=== PATIENT | male | born 1965 ===

== ENCOUNTER 2019-03-31 13:11 | Inpatient (IN) | payer SELFPAY ==
--- NOTE | 2019-03-31 13:20 | Emergency Department Report ---
HPI - General Time Seen by Provider: 03/31/19 13:14 - HPI HPI: Charge nurse triage/room 19 The patient is a 53-year-old male presenting with a chief complaint of dysarthria. Patient states approximately 2 hours ago while washing dishes and developed difficulty speaking and muscle cramps diffusely. Patient denies numbness or weakness. Location: [See above] Duration: [See above] Quality: [See above] Severity: [See above] Modifying factors: [see above] Context: [see above] Mode of transportation: [not driving] ED Past Medical Hx - Past Medical History Previous Medical History?: No - Surgical History Past Surgical History?: No - Social History Smoking Status: Current Every Day Smoker Substance Use Type: None ED Review of Systems ROS: Stated complaint: STROKE Other details as noted in HPI Constitutional: no symptoms reported Eyes: denies: eye pain ENT: denies: throat pain Respiratory: no symptoms reported Cardiovascular: denies: chest pain Endocrine: no symptoms reported Gastrointestinal: denies: abdominal pain Genitourinary: denies: dysuria Musculoskeletal: myalgia Neurological: other (difficulty speaking). denies: headache Physical Exam - Physical Exam Physical Exam: GENERAL: The patient is well-developed well-nourished male sitting on stretcher not appearing to be in acute distress. [] HEENT: Normocephalic. Atraumatic. Extraocular motions are intact. Patient has moist mucous membranes. NECK: Supple. No meningitic signs are noted. Trachea midline CHEST/LUNGS: Clear to auscultation. There is no respiratory distress noted. HEART/CARDIOVASCULAR: Regular. There is no tachycardia. There is no gallop rub or murmur. ABDOMEN: Abdomen is soft, nontender. Patient has normal bowel sounds. There is no abdominal distention. SKIN: There is no rash. There is no edema. There is no diaphoresis. NEURO: The patient is awake, alert, and oriented. The patient is cooperative. The patient has no focal neurologic deficits. Cranial nerves II through XII grossly intact, no drift. [employer] equal bilaterally. Per client reporting associate patient is exhibiting dysarthria MUSCULOSKELETAL:There is no evidence of acute injury. ED Medical Decision Making - Lab Data Result diagrams: 03/31/19 13:29 03/31/19 13:29 Laboratory Tests 03/31/19 03/31/19 03/31/19 13:29 13:29 13:29 WBC 5.2 RBC 4.32 Hgb 13.6 Hct 38.5 MCV 89 MCH 31 MCHC 35 H RDW 12.9 L Plt Count 143 Lymph % (Auto) 9.4 L [place] % (Auto) 12.4 H Eos % (Auto) 1.3 Baso % (Auto) 0.5 Lymph # 0.5 L [place] # 0.6 Eos # 0.1 Baso # 0.0 Seg Neutrophils % 76.4 H Seg Neutrophils # 4.0 PT 13.2 INR 1.03 APTT 29.3 Thrombin Time Sodium 123 L Potassium 2.8 L* Chloride 73.7 L Carbon Dioxide 28 Anion Gap 24 BUN 10 Creatinine 0.8 Estimated GFR > 60 BUN/Creatinine Ratio 13 Glucose 117 H POC Glucose Calcium 9.6 Magnesium Total Creatine Kinase Troponin T < 0.010 TSH Free T4 Plasma/Serum Alcohol 03/31/19 03/31/19 03/31/19 13:29 13:29 13:29 WBC RBC Hgb Hct MCV MCH MCHC RDW Plt Count Lymph % (Auto) [place] % (Auto) Eos % (Auto) Baso % (Auto) Lymph # [place] # Eos # Baso # Seg Neutrophils % Seg Neutrophils # PT INR APTT Thrombin Time 15.5 Sodium Potassium Chloride Carbon Dioxide Anion Gap BUN Creatinine Estimated GFR BUN/Creatinine Ratio Glucose POC Glucose Calcium Magnesium Total Creatine Kinase 574 H Troponin T TSH 2.930 Free T4 1.13 Plasma/Serum Alcohol 03/31/19 03/31/19 03/31/19 13:29 13:29 13:55 WBC RBC Hgb Hct MCV MCH MCHC RDW Plt Count Lymph % (Auto) [place] % (Auto) Eos % (Auto) Baso % (Auto) Lymph # [place] # Eos # Baso # Seg Neutrophils % Seg Neutrophils # PT INR APTT Thrombin Time Sodium Potassium Chloride Carbon Dioxide Anion Gap BUN Creatinine Estimated GFR BUN/Creatinine Ratio Glucose POC Glucose 100 Calcium Magnesium 1.60 L Total Creatine Kinase Troponin T TSH Free T4 Plasma/Serum Alcohol 0.13 H - EKG Data -: EKG Interpreted by Mo EKG shows normal: sinus rhythm Rate: normal - EKG Data When compared to previous EKG there are: previous EKG unavailable Interpretation: nonspecific ST-T wave violet (biphasic T waves in leads V3, V4) - Differential Diagnosis dysarthria, intoxication, electrolyte imbalance, rhabdomyolysis Critical care attestation.: If time is entered above; I have spent that time in minutes in the direct care of this critically ill patient, excluding procedure time. ED Disposition Clinical Impression: Hyponatremia, Hypokalemia, Hypomagnesemia, Alcohol intoxication Disposition: OP ADMIT IP TO THIS HOSP Is pt being admited?: Yes Does the pt Need Aspirin: No Condition: Fair Referrals: GROTON ROBERTOAU SABLE FORKS MD CHICHI [Primary Care Provider] - 3-5 Days Time of Disposition: 14:24 (hospitalist notified (Dr Casarez))
[2019-03-31 13:36] LABS: Basophils % (Auto) 0.5 % (0.0-1.8); Eosinophils # (Auto) 0.1 K/mm3 (0.0-0.4); Eosinophils % (Auto) 1.3 % (0.0-4.3); Hematocrit 38.5 % (35.5-45.6); Hemoglobin 13.6 gm/dl (11.8-15.2); Lymphocytes # (Auto) 0.5 K/mm3 (1.2-5.4); Lymphocytes % (Auto) 9.4 % (13.4-35.0); Mean Corpuscular HGB Conc 35 % (32-34); Mean Corpuscular Volume 89 fl (84-94); Monocytes # (Auto) 0.6 K/mm3 (0.0-0.8); Monocytes % (Auto) 12.4 % (0.0-7.3); Platelet Count 143 K/mm3 (140-440); Red Blood Count 4.32 M/mm3 (3.65-5.03); Red Cell Distribution Width 12.9 % (13.2-15.2)
--- NOTE | 2019-03-31 13:44 | Consultation ---
History of Present Illness Consult date: 03/31/19 Medications and Allergies Allergies Allergy/AdvReac Type Severity Reaction Status Date / Time No Known Allergies Allergy Unverified 03/31/19 13:14 - Level of Consciousness 1a. Level of Consciousness: alert/keenly responsive - LOC Questions 1b. LOC Questions: answers no questions correctly - LOC Command 1c. LOC Commands: performs tasks correctly - Best Gaze 2. Best Gaze: normal - Visual 3. Visual: no visual loss - Facial Palsy 4. Facial Palsy: normal symmetrical movement - Motor Arm 5a. Motor Arm Left: no drift 5b. Motor Arm Right: no drift - Motor Leg 6a. Motor Leg Left: no drift 6b. Motor Leg Right: no drift - Limb Ataxia 7. Limb Ataxia: present 2 limbs - Sensory 8. Sensory: normal - Best Language 9. Best Language: mild/moderate aphasia - Dysarthria 10. Dysarthria: severe dysarthria - Extinction and Inattention 11. Extinction/Inattention: no abnormality - Scoring Total Score: 7 Stroke Severity: Moderate Stroke Results - Laboratory Findings CBC and BMP: 03/31/19 13:29 03/31/19 13:29 Abnormal Lab Findings: Abnormal Labs 03/31/19 13:29 MCHC 35 H RDW 12.9 L Lymph % (Auto) 9.4 L [place] % (Auto) 12.4 H Lymph # 0.5 L Seg Neutrophils % 76.4 H Assessment and Plan Date of Service 03/31/2019 [facility] Comments: Last time known well: _ 10:15 Door time: _1315 [facility] contacted: _1315 [facility] at bedside: _1319 NIHSS assessment time: _1328 consult end time: _1406 Impression: acute ataxia and slurred speech concerning for Acute Ischemic Stroke, His electrolyte abnormalities can explain confusion or muscle spasms but he has speech impairment and unilateral ataxia that is more consistent with a focal neurological deficit. Does meet Large Vessel Occlusion (LVO) screening criteria (Aphasia, Neglect, Gaze deviation/preference, Dense hemiparesis, or Visual field deficits on exam), therefore advanced imaging (CTA head and neck and CTP brain) is indicated. Differential Diagnosis: 1. Cardioembolic stroke 2. Small vessel disease/ lacune 3. Thromboembolic, [id number] mechanism 4. Hypercoagulable state-related infarct 5. Transient ischemic attack 6. Thrombotic mechanism, large artery disease tPA decision and other recommendations: _ Head CT did not show any acute hemorrhage. reviewed report (if available) and images Blood glucose and Blood Pressure within acceptable parameters: Patient is a tPA candidate. Verbal Consent to tPA: I have explained to the patient/family/guardian the nature of the patient's condition, the use of tPA fibrinolytic agent, and the benefits to be reasonably expected compared with alternative approaches. I have discussed the likelihood of major risks or complications of this procedure including (if applicable) but not limited to loss of limb function, brain damage, paralysis, hemorrhage, infection, complications from transfusion of blood components, drug reactions, blood clots and loss of life. I have also indicated that with any procedure there is always the possibility of an unexpected complication. I have explained the risks which include: 1. , Stroke or permanent neurological injury (Paralysis, coma, etc) 2. Worsening of stroke symptoms from swelling or bleeding in the brain 3. Bleeding in other parts of the body 4. Need for blood transfusions to replace blood or clotting factors 5. Allergic reaction to medications 6. Other unexpected complications All questions were answered and the patient/family/guardian express understanding of the treatment plan and consent to the procedure. Our recommendations are outlined below. We will be seeing the patient back in follow up as noted. Recommendations: The recommended dose of t-PA for acute ischemic stroke is 0.9 mg/kg (maximum 90 mg) infused over 60 minutes with 10% of the total dose administered as an initial intravenous bolus over 1 minute. Weight: _ 64.9 kg Verbal order time: _ 13:51 Blood Pressure prior to bolus: _132/76 Needle time: _1404 Total IV tPA dose: _ 58.4mg *Routine post tPA monitoring including neuro checks and blood pressure control during/after treatment *Monitor blood pressure: *Check blood pressure and NIHSS every 15 minutes for 2 hours, then every 30 minutes for 6 hours, and finally every hour for 16 hours For blood pressure management: Systolic greater than 180 OR Diastolic greater than 105: Option 1: Labetalol 10mg IV for 1-2 min May repeat or double labetalol every 10 min to maximum dose of 300mg, or give initial labetalol dose, then start labetalol drip at 2-8 mg/min Option 2: Nicardipine 5mg/hr IV infusion as initial dose and titrate to desired effect by increasing 2.5 mg/hr every 5 min to maximum of 15 mg/hr; If blood pressure is not controlled by labetalol or nicardipine, consider sodium nitroprusside. Based on the results of CTA head and neck and (if needed) CTP brain, will determine presence of Large Vessel Occlusion and eligibility for mechanical thr ombectomy. *Admission to ICU *CT Brain 24 hours post tPA *NPO until swallowing screen performed and passed *No antiplatelet agents or anticoagulants (including heparin for DVT prophylaxis) in first 24 hours *No lin catheter, nasogastric tube, arterial catheter or central venous catheter for 24 hours, unless absolutely necessary *Telemetry *2D Echo *Lipid panel *High dose statin *MRI brain without contrast *PT/OT/Speech evaluations *Inpatient Neurology Consultation *Stroke evaluation as per inpatient neurology recommendations *Discussed with physician/medical staff Please contact [facility] Navigator to reach me if further questions/concerns arise. Reason for Stroke Alert and History of Present Illness: _ Patient is a(n) 46 years old male, with history of smoker, last known well: 10:15 came in for spasm in hands and cramping, family states they saw cramping, in ER found to have significant slurred speech and confusion. He stated he had poured rubbing alcohol over himself. EMS reported seeing lots of beer bottles but patient denied drinking. He states started having cramping at 9 but speech impairment started at about 10:15 - Review of Systems: Constitutional: Negative except as documented in history of present illness. Eye: Negative except as documented in history of present illness. Ear/Nose/Mouth/Throat: Negative except as documented in history of present illness. Respiratory: Negative except as documented in history of present illness. Cardiovascular: Negative except as documented in history of present illness. Gastrointestinal: Negative except as documented in history of present illness. Musculoskeletal: Negative except as documented in history of present illness. Neurologic: Negative except as documented in history of present illness. Examination: NIHSS Details documented in the note ___ 7 Medical Decision Making: - Extensive number of diagnosis or management options are considered above. - Extensive amount of complex data reviewed. - High risk of complication and/or morbidity or mortality are associated with differential diagnostic considerations above. - There may be Uncertain outcome and increased probability of prolonged functional impairment or high probability of severe prolonged functional impairment associated with some of these differential diagnoses. Medical Data Reviewed: 1.Data reviewed include clinical labs, radiology, Medical Tests; 2.Tests results discussed w/performing or interpreting physician; 3.Obtaining/reviewing old medical records; 4.Obtaining case history from another source; 5.Independent review of image, tracing or specimen. When possible Patient/family were informed the Neurology Consult would happen via TeleHealth consult by way of interactive audio and video telecommunications and consented to receiving care in this manner. Case discussed with the Medical staff. Critical Care notation: I was called to see this critical patient emergently. I personally evaluated this critical patient for acute stroke evaluation and determining their eligibility for IV Alteplase and interventional therapies. I have spent approximately _47_ minutes with the patient, including time at bedside, time discussing the case with other physicians, reviewing plan of care, and time independently reviewing the records and scans.
[2019-03-31 13:49] LABS: INR 1.03 (0.87-1.13)
[2019-03-31 13:50] LABS: Partial Thromboplastin Time 29.3 Sec. (24.2-36.6)
[2019-03-31 13:52] LABS: BUN/Creatinine Ratio 13; Blood Urea Nitrogen 10 mg/dL (9-20); Calcium 9.6 mg/dL (8.4-10.2); Hemolysis Index 7
[2019-03-31] MEDS ORDERED: MAGNESIUM SULFATE 2GM/50ML 2 GM/50 ML BAG IV ONE (13:56)
[2019-03-31] MEDS ORDERED: K-DUR PO ONE ×2 (13:56→16:22)
[2019-03-31] MEDS ORDERED: ACTIVASE ONE (13:57)
[2019-03-31] MEDS ORDERED: NACL 0.9% 1000 ML 1,000 ML IV ONE (13:57)
[2019-03-31] MEDS ORDERED: NACL 0.9% IV ONE (14:00)
--- NOTE | 2019-03-31 14:01 | Cat Scan Report ---
CT HEAD WITHOUT CONTRAST: HISTORY: Neurological deficit. TECHNIQUE: Sequential CT images without contrast. FINDINGS: Images obtained show bilateral prominence of the sulci and ventricles. There are no abnormal intra- or extra-axial blood or fluid collections. There are no focal masses or evidence of mass effect. The menendez white matter differentiation appears within normal limits. Regions of periventricular decreased attenuation are consistent with microangiopathic ischemic disease. The posterior fossa structures including the fourth ventricle, cerebellum, and brainstem appear normal. IMPRESSION: Evidence of atrophy and microangiopathic ischemic disease. No acute intracranial process noted.
[2019-03-31 14:03] LABS: Free T4 (Free Thyroxine) 1.13 ng/dL (0.76-1.46)
[2019-03-31] MEDS: ACTIVASE IV ONE ×2 (14:04→15:42)
[2019-03-31] MEDS ORDERED: ACTIVASE IV ONE (14:15)
[2019-03-31] MEDS ORDERED: VITAMIN B-1 100 MG, FOLVITE 1 MG, INFUVITE 10 ML in NACL 0.9% 1000 ML 1,000 ML IV ONE (14:56)
[2019-03-31] MEDS ORDERED: POTASSIUM CHLORIDE FEEDTUBE ONE (17:00)
[2019-03-31] MEDS: KCL 10MEQ/100ML 10 MEQ/100 ML BAG IV SCH ×2 (17:30→22:52)
[2019-03-31] MEDS ORDERED: KCL 10MEQ/100ML 10 MEQ/100 ML BAG IV ONE (17:36)
--- NOTE | 2019-03-31 18:17 | Cat Scan Report ---
PROCEDURE: CT ANGIO HEAD TECHNIQUE: Computerized tomographic angiography of the head was performed after the IV injection of iodinated nonionic contrast including image processing. The image data was postprocessed using 2-dim ensional multiplanar reformatted (MPR) and 3-dimensional (MIP and/or volume rendered) techniques. CT DOSE LENGTH PRODUCT: 647.5 mGycm HISTORY: stroke COMPARISONS: None . FINDINGS: Cerebrum: No evidence of hemorrhage, acute ischemia or mass . Cerebellum: No evidence of hemorrhage, acute ischemia or mass . Subarachnoid spaces and ventricles: Normal . Intracranial vessels: Carotid siphon: Normal . Anterior cerebral: Normal . Middle cerebral: Normal . Posterior cerebral: Normal . Vertebral arteries including basilar: Normal . Aneurysms: None . Dural sinuses: Normal. IMPRESSION: Normal Examination . This document is electronically signed by Lucas Yarbrough MD., March 31 2019 06:15:48 PM ET
--- NOTE | 2019-03-31 18:20 | Cat Scan Report ---
PROCEDURE: CT ANGIO NECK TECHNIQUE: Change of the neck performed with intravenous contrast. Multiplanar and 3-D maximum inten sity ejection reconstructions obtained HISTORY: stroke COMPARISONS: FINDINGS: Origin of the great vessels is unremarkable The common carotid arteries demonstrate normal course and caliber. Internal carotid arteries demonstr ate no evidence for stenosis or occlusion Both vertebral arteries are identified. There is no evidence for dissection occlusion or stenosis. IMPRESSION: Negative CT angiogram neck. This document is electronically signed by Lucas Yarbrough MD., March 31 2019 06:18:50 PM ET
[2019-03-31 19:20] LABS: Amphetamine Screen,Urine PRESUMPTIVE NEGATIVE; Benzodiazepines Screen,Urine PRESUMPTIVE NEGATIVE; Cannabinoid Screen,Urine PRESUMPTIVE NEGATIVE; Cocaine Screen,Urine PRESUMPTIVE NEGATIVE; Methadone Screen,Urine PRESUMPTIVE NEGATIVE; Opiate Screen,Urine PRESUMPTIVE NEGATIVE
[2019-03-31 19:24] LABS: Bilirubin,Urine NEG (Negative); Blood,Urine SM (Negative); Color,Urine Yellow (Yellow); Protein,Urine <15 mg/dL mg/dL (Negative)
--- NOTE | 2019-03-31 20:38 | History and Physical Report ---
History of Present Illness Date of examination: 03/31/19 Date of admission: 03/31/19 14:23 Medications and Allergies Allergies Allergy/AdvReac Type Severity Reaction Status Date / Time No Known Allergies Allergy Unverified 03/31/19 13:14 Home Medications Medication Instructions Recorded Confirmed Last Taken Type No Known Home Medications [No 03/31/19 03/31/19 Unknown History Reported Home Medications] Active Meds: Active Medications Haloperidol Lactate (Haldol) 5 mg IV Q1H PRN PRN Reason: Unrespon. to mult. doses BZD's Potassium Chloride (Kcl 10meq/100ml) 10 meq in 100 mls @ 100 mls/hr IV Q1H HERMILA Stop: 03/31/19 20:59 Last Admin: 03/31/19 17:30 Dose: 100 mls/hr Documented by: Lorazepam (Ativan) 2 mg IV Q1H PRN PRN Reason: CIWA-Ar 8-15 Lorazepam (Ativan) 4 mg IV Q1H PRN PRN Reason: CIWA-Ar 16-25 Lorazepam (Ativan) 4 mg IV Q15MIN PRN PRN Reason: CIWA-Ar >25 Exam - Constitutional Vitals: Temp Pulse Resp BP Pulse Ox 94 H 12 127/77 97 03/31/19 20:01 03/31/19 20:01 03/31/19 20:01 03/31/19 18:56 Results - Labs CBC & Chem 7: 03/31/19 13:29 03/31/19 13:29 Labs: Laboratory Last Values WBC 5.2 K/mm3 (4.5-11.0) 03/31/19 13:29 RBC 4.32 M/mm3 (3.65-5.03) 03/31/19 13:29 Hgb 13.6 gm/dl (11.8-15.2) 03/31/19 13:29 Hct 38.5 % (35.5-45.6) 03/31/19 13:29 MCV 89 fl (84-94) 03/31/19 13:29 MCH 31 pg (28-32) 03/31/19 13:29 MCHC 35 % (32-34) H 03/31/19 13:29 RDW 12.9 % (13.2-15.2) L 03/31/19 13:29 Plt Count 143 K/mm3 (140-440) 03/31/19 13:29 Lymph % (Auto) 9.4 % (13.4-35.0) L 03/31/19 13:29 [place] % (Auto) 12.4 % (0.0-7.3) H 03/31/19 13:29 Eos % (Auto) 1.3 % (0.0-4.3) 03/31/19 13:29 Baso % (Auto) 0.5 % (0.0-1.8) 03/31/19 13:29 Lymph # 0.5 K/mm3 (1.2-5.4) L 03/31/19 13:29 [place] # 0.6 K/mm3 (0.0-0.8) 03/31/19 13:29 Eos # 0.1 K/mm3 (0.0-0.4) 03/31/19 13:29 Baso # 0.0 K/mm3 (0.0-0.1) 03/31/19 13:29 Seg Neutrophils % 76.4 % (40.0-70.0) H 03/31/19 13:29 Seg Neutrophils # 4.0 K/mm3 (1.8-7.7) 03/31/19 13:29 PT 13.2 Sec. (12.2-14.9) 03/31/19 13:29 INR 1.03 (0.87-1.13) 03/31/19 13:29 APTT 29.3 Sec. (24.2-36.6) 03/31/19 13:29 15.5 Sec. (15.1-19.6) 03/31/19 13:29 Sodium 123 mmol/L (137-145) L 03/31/19 13:29 Potassium 2.8 mmol/L (3.6-5.0) L* 03/31/19 13:29 Chloride 73.7 mmol/L (98-107) L 03/31/19 13:29 Carbon Dioxide 28 mmol/L (22-30) 03/31/19 13:29 24 mmol/L 03/31/19 13:29 BUN 10 mg/dL (9-20) 03/31/19 13:29 0.8 mg/dL (0.8-1.5) 03/31/19 13:29 Estimated GFR > 60 ml/min 03/31/19 13:29 13 % 03/31/19 13:29 Glucose 117 mg/dL (75-100) H 03/31/19 13:29 POC Glucose 100 (70-105) 03/31/19 13:55 Calcium 9.6 mg/dL (8.4-10.2) 03/31/19 13:29 Magnesium 1.60 mg/dL (1.7-2.3) L 03/31/19 13:29 574 units/L (55-170) H 03/31/19 13:29 < 0.010 ng/mL (0.00-0.029) 03/31/19 13:29 TSH 2.930 mlU/mL (0.270-4.200) 03/31/19 13:29 Free T4 1.13 ng/dL (0.76-1.46) 03/31/19 13:29 Yellow (Yellow) 03/31/19 17:20 Slightly-cloudy (Clear) 03/31/19 17:20 5.0 (5.0-7.0) 03/31/19 17:20 Ur Specific [place] 1.008 (1.003-1.030) 03/31/19 17:20 <15 mg/dl mg/dL (Negative) 03/31/19 17:20 Neg mg/dL (Negative) 03/31/19 17:20 Tr mg/dL (Negative) 03/31/19 17:20 Sm (Negative) 03/31/19 17:20 Neg (Negative) 03/31/19 17:20 Neg (Negative) 03/31/19 17:20 4.0 mg/dL (<2.0) 03/31/19 17:20 Ur Leukocyte Esterase Neg (Negative) 03/31/19 17:20 7.0 /HPF (0.0-6.0) H 03/31/19 17:20 4.0 /HPF (0.0-6.0) 03/31/19 17:20 Presumptive negative 03/31/19 17:20 Presumptive negative 03/31/19 17:20 Ur Barbiturates Screen Presumptive negative 03/31/19 17:20 Ur Phencyclidine Scrn Presumptive negative 03/31/19 17:20 Ur Amphetamines Screen Presumptive negative 03/31/19 17:20 U Benzodiazepines Scrn Presumptive negative 03/31/19 17:20 Presumptive negative 03/31/19 17:20 U Marijuana (THC) Screen Presumptive negative 03/31/19 17:20 Disclamer 03/31/19 17:20 Plasma/Serum Alcohol 0.13 % (0-0.07) H 03/31/19 13:29
[2019-03-31] MEDS ORDERED: ZOFRAN IV PRN (20:39)
[2019-03-31] MEDS ORDERED: SODIUM CHLORIDE FLUSH SYRINGE 10 ML IV PRN ×2 (20:39→20:41)
[2019-03-31] MEDS: ATIVAN IV PRN ×4 (20:43→23:14)
[2019-03-31] MEDS ORDERED: ATIVAN ONE (20:50)
[2019-03-31] MEDS ORDERED: ASPIRIN PO SCH (21:00)
[2019-03-31] MEDS ORDERED: PEPCID IV SCH (22:00)
[2019-03-31] MEDS: D5NS 1,000 ML IV SCH (22:27)
[2019-03-31] MEDS: SODIUM CHLORIDE FLUSH SYRINGE 10 ML IV SCH (22:31)
[2019-04-01] MEDS: ATIVAN IV PRN ×10 (00:51→23:28)
[2019-04-01] MEDS: KCL 10MEQ/100ML 10 MEQ/100 ML BAG IV SCH ×2 (01:53→02:36)
[2019-04-01 05:28] LABS: Basophils % (Auto) 0.6 % (0.0-1.8); Eosinophils # (Auto) 0.1 K/mm3 (0.0-0.4); Eosinophils % (Auto) 2.3 % (0.0-4.3); Hematocrit 36.6 % (35.5-45.6); Hemoglobin 12.4 gm/dl (11.8-15.2); Lymphocytes # (Auto) 0.5 K/mm3 (1.2-5.4); Lymphocytes % (Auto) 9.4 % (13.4-35.0); Mean Corpuscular HGB Conc 34 % (32-34); Mean Corpuscular Volume 91 fl (84-94); Monocytes # (Auto) 0.5 K/mm3 (0.0-0.8); Monocytes % (Auto) 9.1 % (0.0-7.3); Platelet Count 103 K/mm3 (140-440); Red Cell Distribution Width 12.8 % (13.2-15.2)
[2019-04-01 05:48] LABS: Alanine Aminotransferase 73 units/L (7-56); Albumin 3.8 g/dL (3.9-5); BUN/Creatinine Ratio 20; Blood Urea Nitrogen 10 mg/dL (9-20); Calcium 8.8 mg/dL (8.4-10.2); Hemolysis Index 3
--- NOTE | 2019-04-01 07:34 | Event Note ---
Date: 03/31/19 See dictated H/p in reports S/p TPA CVA? ETOH Dependence
--- NOTE | 2019-04-01 07:34 | Progress Note ---
Assessment and Plan - Patient Problems (1) Acute encephalopathy Current Visit: Yes Status: Acute Plan to address problem: Sec to DT's and severe ETOH dependence (2) Delirium tremens Current Visit: Yes Status: Acute Plan to address problem: Today CIWA scores came below 25 and to transfer to regular Medical floor Cont CIWA protocol (3) Hypokalemia Current Visit: Yes Status: Acute Plan to address problem: Supplemented (4) Hypomagnesemia Current Visit: Yes Status: Acute Plan to address problem: Supplemented multiple times Check Mg level again (5) Malnutrition of moderate degree Current Visit: Yes Status: Acute Plan to address problem: Diettitian consult (6) Transaminitis Current Visit: Yes Status: Acute Plan to address problem: Sec to ETOH (7) EtOH dependence Current Visit: Yes Status: Chronic Qualifiers: Substance use status: in withdrawal Complication of substance-induced condition: with delirium Qualified Code(s): F10.231 - Alcohol dependence with withdrawal delirium Plan to address problem: Patient to be counselled with a ethiopian inerpretor when more alert and oriented (8) Hyponatremia Current Visit: Yes Status: Acute Plan to address problem: Corrected (9) DVT prophylaxis Current Visit: Yes Status: Acute Plan to address problem: On Lovenox and GI prophylaxis Subjective Date of service: 04/01/19 Principal diagnosis: Severe ETOH dependence and DT's and Acute Encephalopathy Interval history: Ad\mitted for possible stroke s/p TPA and severe ETOH dependence.Stroke ruled out. Now in severe DT's with CIWA scores more than 25 persistently.5 Objective - Constitutional Vitals: Vital Signs - 12hr 03/31/19 03/31/19 03/31/19 19:45 20:01 20:51 Temperature Pulse Rate 93 H 94 H Pulse Rate [ Left Arm] Respiratory 13 12 Rate Respiratory Rate [Left Arm] Blood Pressure 127/77 127/77 114/70 Blood Pressure [Left Arm] O2 Sat by Pulse Oximetry O2 Sat by Pulse Oximetry [Left Arm] 03/31/19 03/31/19 03/31/19 21:00 21:18 21:20 Temperature 99.2 F Pulse Rate 85 94 H Pulse Rate [ 87 Left Arm] Respiratory 20 18 Rate Respiratory 17 Rate [Left Arm] Blood Pressure Blood Pressure 118/65 [Left Arm] O2 Sat by Pulse 97 98 Oximetry O2 Sat by Pulse 96 Oximetry [Left Arm] 03/31/19 03/31/19 03/31/19 21:23 21:32 21:35 Temperature Pulse Rate 85 86 Pulse Rate [ 82 Left Arm] Respiratory 18 18 Rate Respiratory 18 Rate [Left Arm] Blood Pressure 118/65 Blood Pressure 118/65 [Left Arm] O2 Sat by Pulse 97 97 Oximetry O2 Sat by Pulse 98 Oximetry [Left Arm] 03/31/19 03/31/19 03/31/19 21:41 21:51 22:00 Temperature Pulse Rate 84 84 93 H Pulse Rate [ Left Arm] Respiratory 14 22 19 Rate Respiratory Rate [Left Arm] Blood Pressure 121/66 125/72 Blood Pressure [Left Arm] O2 Sat by Pulse 97 95 98 Oximetry O2 Sat by Pulse Oximetry [Left Arm] 03/31/19 03/31/19 03/31/19 22:11 22:20 22:21 Temperature Pulse Rate 90 Pulse Rate [ Left Arm] Respiratory 18 18 Rate Respiratory Rate [Left Arm] Blood Pressure 125/72 125/72 Blood Pressure [Left Arm] O2 Sat by Pulse 97 98 96 Oximetry O2 Sat by Pulse Oximetry [Left Arm] 03/31/19 03/31/19 03/31/19 22:25 22:30 22:41 Temperature Pulse Rate 88 91 H Pulse Rate [ 88 Left Arm] Respiratory 10 L 22 Rate Respiratory 18 Rate [Left Arm] Blood Pressure 121/72 121/72 Blood Pressure 121/72 [Left Arm] O2 Sat by Pulse 92 Oximetry O2 Sat by Pulse 95 Oximetry [Left Arm] 03/31/19 03/31/19 03/31/19 22:51 23:01 23:05 Temperature Pulse Rate 94 H 95 H Pulse Rate [ 85 Left Arm] Respiratory 16 16 Rate Respiratory 16 Rate [Left Arm] Blood Pressure 121/72 133/82 Blood Pressure 133/82 [Left Arm] O2 Sat by Pulse 97 Oximetry O2 Sat by Pulse 95 Oximetry [Left Arm] 03/31/19 03/31/19 03/31/19 23:11 23:21 23:30 Temperature Pulse Rate 92 H 100 H 95 H Pulse Rate [ Left Arm] Respiratory 17 17 13 Rate Respiratory Rate [Left Arm] Blood Pressure 133/82 133/82 123/90 Blood Pressure [Left Arm] O2 Sat by Pulse 97 99 Oximetry O2 Sat by Pulse Oximetry [Left Arm] 03/31/19 03/31/19 04/01/19 23:41 23:51 00:00 Temperature 98.0 F Pulse Rate 88 82 81 Pulse Rate [ Left Arm] Respiratory 12 15 14 Rate Respiratory Rate [Left Arm] Blood Pressure 123/90 123/90 125/74 Blood Pressure [Left Arm] O2 Sat by Pulse Oximetry O2 Sat by Pulse Oximetry [Left Arm] 04/01/19 04/01/19 04/01/19 00:05 00:11 00:21 Temperature Pulse Rate 75 86 Pulse Rate [ 81 Left Arm] Respiratory 18 15 18 Rate Respiratory 14 Rate [Left Arm] Blood Pressure 125/74 125/74 Blood Pressure 125/74 [Left Arm] O2 Sat by Pulse 98 Oximetry O2 Sat by Pulse 95 Oximetry [Left Arm] 04/01/19 04/01/19 04/01/19 00:30 00:41 00:51 Temperature Pulse Rate 83 77 84 Pulse Rate [ Left Arm] Respiratory 11 L 14 20 Rate Respiratory Rate [Left Arm] Blood Pressure 129/75 129/75 125/74 Blood Pressure [Left Arm] O2 Sat by Pulse 98 Oximetry O2 Sat by Pulse Oximetry [Left Arm] 04/01/19 04/01/19 04/01/19 01:01 01:05 01:11 Temperature Pulse Rate 87 78 Pulse Rate [ 87 Left Arm] Respiratory 18 18 Rate Respiratory 18 Rate [Left Arm] Blood Pressure 127/69 127/69 Blood Pressure 127/69 [Left Arm] O2 Sat by Pulse 97 95 Oximetry O2 Sat by Pulse 97 Oximetry [Left Arm] 04/01/19 04/01/19 04/01/19 01:21 01:30 01:41 Temperature Pulse Rate 72 78 83 Pulse Rate [ Left Arm] Respiratory 13 12 17 Rate Respiratory Rate [Left Arm] Blood Pressure 127/69 114/77 114/77 Blood Pressure [Left Arm] O2 Sat by Pulse 98 Oximetry O2 Sat by Pulse Oximetry [Left Arm] 04/01/19 04/01/19 04/01/19 01:51 02:00 02:05 Temperature Pulse Rate 75 71 Pulse Rate [ 71 Left Arm] Respiratory 19 11 L 18 Rate Respiratory 14 Rate [Left Arm] Blood Pressure 114/77 114/77 Blood Pressure 128/83 [Left Arm] O2 Sat by Pulse 98 98 Oximetry O2 Sat by Pulse 98 Oximetry [Left Arm] 04/01/19 04/01/19 04/01/19 02:11 02:21 02:31 Temperature Pulse Rate 79 77 96 H Pulse Rate [ Left Arm] Respiratory 15 16 15 Rate Respiratory Rate [Left Arm] Blood Pressure 128/83 128/83 133/75 Blood Pressure [Left Arm] O2 Sat by Pulse 98 98 98 Oximetry O2 Sat by Pulse Oximetry [Left Arm] 04/01/19 04/01/19 04/01/19 02:41 02:51 03:01 Temperature Pulse Rate 71 68 72 Pulse Rate [ Left Arm] Respiratory 16 15 12 Rate Respiratory Rate [Left Arm] Blood Pressure 133/75 133/75 125/86 Blood Pressure [Left Arm] O2 Sat by Pulse 98 99 99 Oximetry O2 Sat by Pulse Oximetry [Left Arm] 04/01/19 04/01/19 04/01/19 03:05 03:10 03:21 Temperature Pulse Rate 75 67 Pulse Rate [ 72 Left Arm] Respiratory 18 14 15 Rate Respiratory 12 Rate [Left Arm] Blood Pressure 125/86 125/86 Blood Pressure 125/86 [Left Arm] O2 Sat by Pulse 98 98 98 Oximetry O2 Sat by Pulse 98 Oximetry [Left Arm] 04/01/19 04/01/19 04/01/19 03:31 03:41 03:50 Temperature Pulse Rate 70 72 71 Pulse Rate [ Left Arm] Respiratory 11 L 15 17 Rate Respiratory Rate [Left Arm] Blood Pressure 136/75 136/75 136/75 Blood Pressure [Left Arm] O2 Sat by Pulse 99 99 99 Oximetry O2 Sat by Pulse Oximetry [Left Arm] 04/01/19 04/01/19 04/01/19 04:00 04:05 04:10 Temperature 98.0 F Pulse Rate 79 91 H Pulse Rate [ Left Arm] Respiratory 15 Rate Respiratory Rate [Left Arm] Blood Pressure 136/75 136/94 Blood Pressure [Left Arm] O2 Sat by Pulse 100 100 Oximetry O2 Sat by Pulse Oximetry [Left Arm] 04/01/19 04/01/19 04/01/19 04:20 04:31 04:41 Temperature Pulse Rate 73 71 69 Pulse Rate [ Left Arm] Respiratory 13 17 18 Rate Respiratory Rate [Left Arm] Blood Pressure 136/94 122/70 122/70 Blood Pressure [Left Arm] O2 Sat by Pulse 99 Oximetry O2 Sat by Pulse Oximetry [Left Arm] 04/01/19 04/01/19 04/01/19 04:51 05:00 05:05 Temperature Pulse Rate 70 75 Pulse Rate [ 72 Left Arm] Respiratory 10 L 16 Rate Respiratory 14 Rate [Left Arm] Blood Pressure 122/70 130/80 Blood Pressure 137/82 [Left Arm] O2 Sat by Pulse 99 99 Oximetry O2 Sat by Pulse 98 Oximetry [Left Arm] 04/01/19 04/01/19 04/01/19 05:11 05:21 05:25 Temperature Pulse Rate 71 80 Pulse Rate [ Left Arm] Respiratory 15 16 18 Rate Respiratory Rate [Left Arm] Blood Pressure 130/80 130/80 Blood Pressure [Left Arm] O2 Sat by Pulse 98 99 98 Oximetry O2 Sat by Pulse Oximetry [Left Arm] 04/01/19 04/01/19 04/01/19 05:31 05:41 05:51 Temperature Pulse Rate 88 78 83 Pulse Rate [ Left Arm] Respiratory 14 12 17 Rate Respiratory Rate [Left Arm] Blood Pressure 130/80 137/82 137/82 Blood Pressure [Left Arm] O2 Sat by Pulse 99 99 99 Oximetry O2 Sat by Pulse Oximetry [Left Arm] 04/01/19 04/01/19 04/01/19 06:00 06:11 06:25 Temperature Pulse Rate 68 77 Pulse Rate [ 72 Left Arm] Respiratory 18 15 18 Rate Respiratory 17 Rate [Left Arm] Blood Pressure 137/82 130/81 Blood Pressure 130/81 [Left Arm] O2 Sat by Pulse 99 99 98 Oximetry O2 Sat by Pulse 99 Oximetry [Left Arm] General appearance: Present: no acute distress, well-nourished - EENT Eyes: PERRL, EOM intact ENT: hearing intact, clear oral mucosa Ears: bilateral: normal - Neck Neck: supple, normal ROM - Respiratory Respiratory effort: normal Respiratory: bilateral: CTA - Breasts Breasts: normal - Cardiovascular Rhythm: regular Heart Sounds: Present: S1 & S2. Absent: gallop, rub Extremities: pulses intact, No edema, normal color, Full ROM - Gastrointestinal General gastrointestinal: Present: soft, non-tender, non-distended, normal bowel sounds - Genitourinary Male genitourinary: normal - Integumentary Integumentary: clear, warm, dry - Musculoskeletal Musculoskeletal: 1, strength equal bilaterally - Neurologic Neurologic: moves all extremities - Psychiatric Psychiatric: memory intact, appropriate mood/affect, intact judgment & insight - Labs CBC & Chem 7: 04/01/19 04:51 04/04/19 14:00 Labs: Abnormal lab results 03/31/19 03/31/19 03/31/19 Range/Units 13:29 13:29 13:29 MCHC 35 H (32-34) % RDW 12.9 L (13.2-15.2) % Plt Count (140-440) K/mm3 Lymph % (Auto) 9.4 L (13.4-35.0) % [place] % (Auto) 12.4 H (0.0-7.3) % Lymph # 0.5 L (1.2-5.4) K/mm3 Seg Neutrophils % 76.4 H (40.0-70.0) % Sodium 123 L (137-145) mmol/L Potassium 2.8 L* (3.6-5.0) mmol/L Chloride 73.7 L (98-107) mmol/L Carbon Dioxide (22-30) mmol/L Creatinine (0.8-1.5) mg/dL Glucose 117 H (75-100) mg/dL Magnesium (1.7-2.3) mg/dL Total Bilirubin (0.1-1.2) mg/dL AST (5-40) units/L ALT (7-56) units/L Total Creatine Kinase 574 H (55-170) units/L Albumin (3.9-5) g/dL Amylase (27-131) units/L Urine WBC (Auto) (0.0-6.0) /HPF Plasma/Serum Alcohol (0-0.07) % 03/31/19 03/31/19 03/31/19 Range/Units 13:29 13:29 17:20 MCHC (32-34) % RDW (13.2-15.2) % Plt Count (140-440) K/mm3 Lymph % (Auto) (13.4-35.0) % [place] % (Auto) (0.0-7.3) % Lymph # (1.2-5.4) K/mm3 Seg Neutrophils % (40.0-70.0) % Sodium (137-145) mmol/L Potassium (3.6-5.0) mmol/L Chloride (98-107) mmol/L Carbon Dioxide (22-30) mmol/L Creatinine (0.8-1.5) mg/dL Glucose (75-100) mg/dL Magnesium 1.60 L (1.7-2.3) mg/dL Total Bilirubin (0.1-1.2) mg/dL AST (5-40) units/L ALT (7-56) units/L Total Creatine Kinase (55-170) units/L Albumin (3.9-5) g/dL Amylase (27-131) units/L Urine WBC (Auto) 7.0 H (0.0-6.0) /HPF Plasma/Serum Alcohol 0.13 H (0-0.07) % 03/31/19 04/01/19 04/01/19 Range/Units 21:26 04:51 04:51 MCHC (32-34) % RDW 12.8 L (13.2-15.2) % Plt Count 103 L (140-440) K/mm3 Lymph % (Auto) 9.4 L (13.4-35.0) % [place] % (Auto) 9.1 H (0.0-7.3) % Lymph # 0.5 L (1.2-5.4) K/mm3 Seg Neutrophils % 78.6 H (40.0-70.0) % Sodium 134 L D (137-145) mmol/L Potassium 3.1 L (3.6-5.0) mmol/L Chloride 91.9 L (98-107) mmol/L Carbon Dioxide 31 H (22-30) mmol/L Creatinine 0.5 L (0.8-1.5) mg/dL Glucose (75-100) mg/dL Magnesium (1.7-2.3) mg/dL Total Bilirubin 1.70 H (0.1-1.2) mg/dL AST 154 H (5-40) units/L ALT 73 H (7-56) units/L Total Creatine Kinase (55-170) units/L Albumin 3.8 L (3.9-5) g/dL Amylase 141 H (27-131) units/L Urine WBC (Auto) (0.0-6.0) /HPF Plasma/Serum Alcohol (0-0.07) %
[2019-04-01] MEDS: D5NS 1,000 ML IV SCH (08:30)
[2019-04-01] MEDS ORDERED: K-DUR PO ONE (09:00)
--- NOTE | 2019-04-01 10:14 | History and Physical Report ---
CHIEF COMPLAINT: Sudden onset of difficulty speaking. HISTORY OF PRESENT ILLNESS: A 53-year-old male under the influence of alcohol. Had a difficulty talking 2 hours ago while washing dishes, also muscle cramps all over. No weakness. The patient when he came to the emergency room, code stroke was called and as per tele-neurology, the patient was given TPA. The patient did not have any weakness on the left or the right side. The patient is able to stand and talk during my exam. PAST MEDICAL HISTORY: None. PAST SURGICAL HISTORY: None. SOCIAL HISTORY: Current everyday smoker. Substance abuse none. FAMILY HISTORY: None. REVIEW OF SYSTEMS: Significant for dysarthria. Otherwise, review of systems negative. PHYSICAL EXAMINATION: GENERAL: Young male, cooperative during examination. VITAL SIGNS: Blood pressure is 137/82, temperature is 98, pulse is 68, respirations are 18, sats are 98%. HEENT: Unremarkable. Pupils are equal and reactive. NECK: Supple, no lymphadenopathy, no thyromegaly. LUNGS: Clear to auscultation and percussion. Good air entry. CARDIOVASCULAR: S1, S2 heard. No gallop, no murmur, no rub. Apical impulse in left fifth intercostal space and midclavicular line. ABDOMEN: Soft and benign. No hepatosplenomegaly. No guarding, no rigidity. Hernial orifices are normal. EXTREMITIES: Good pedal pulses. No pedal edema. CENTRAL NERVOUS SYSTEM: Alert and oriented x 4. Good power in all 4 extremities. SKIN: Normal. LABORATORY DATA: Labs normal except for potassium of 2.8. Magnesium is 1.6. WBC 7.0. Serum alcohol level is 0.13. ASSESSMENT AND PLAN: 1. Dysarthria. The patient was treated as code stroke and was given TPA. The patient has normal power. We will get stroke workup. We will probably be negative workup. Because the patient is status post TPA, the patient to go to ICU. 2. Hypokalemia, supplemented. 3. Hypomagnesemia, supplemented. 4. Urinary tract infection, IV Rocephin given. 5. ETOH dependence. [facility] protocol initiated. 6. Deep venous thrombosis prophylaxis, Lovenox 40 mg subcutaneous daily. Critical care time 30 minutes. JOB# [id number] LORENE/ROBSON LACY
[2019-04-01] MEDS: PEPCID PO SCH ×2 (10:23→21:32)
[2019-04-01] MEDS: SODIUM CHLORIDE FLUSH SYRINGE 10 ML IV SCH (10:23)
--- NOTE | 2019-04-01 12:47 | Consultation ---
History of Present Illness Consult date: 04/01/19 Requesting physician: NIMA FERRELL Reason for Consult: dysarthria, dysphasia Chief complaint: altered mental status, dysarthria, dysphasia, spasms/cramps in hands History of present illness: This 53 year old male, poor historian, even with Language line Pat ID [id number], may be indicating right handed, nods yes to headache, denies dizziness. Admitted for spasms of hands and dysarthria and possible dysphasia and headache as well as ataxia and given TPA. Na initially 123 with ETOH 0.13, K 2.8. Na today 134, K 3.1, Mg was 1.6 and now 2. MRI pending. Past medical history: Unobtainable Social history: Shakes his head no to smoking or alcohol but cannot do full history Family history: Unobtainable Use systems: Unobtainable General appearance: Well-developed well-nourished (per VMI) early 50s male, quite sleepy but arousable. HEENT: No bruits, superficial temporal arteries 2+ without soreness, oropharynx pink and moist. Neck: Supple: No bruits. Heart no murmur heard but sounds are distant. Extremities: 2+ dorsalis pedis pulses without edema or cyanosis or clubbing. Neurologic exam: Mental status: Sleepy but arousable to semi-alert. Not oriented though gives the location as "[place]" rather than hospital when given multiple choice. Speaks only a few words, names pen and [place] in Haitian and glasses in Haitian. Cannot cooperate for naming president or calculations or abstractions or other more complicated commands. Cranial nerves: North appear intact, cannot see discs due to lack of cooperation, PERRLA, extraocular movements movements are full spontaneously, corneals are positive, mild right facial weakness, cannot assess Joshi, gags are absent (later seems to swallow without difficulty when nurses are feeding him), tongue protrudes midline. Cerebellar: Finger to nose dysmetric bilaterally without tremor, [id number] is apraxic. Sensory: Intact to pinprick. More complex testing not possible. 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 Tone is normal. Motor exam lower extremities: Old lift legs off bed but would need supported quadriceps is 5 and pedal pushes his 4+ bilaterally. Tone seems normal. Reflexes: Palmomental is slightly positive bilaterally, jaw jerk is positive, snout is negative. Triceps is 1+ bilaterally, biceps is 1 on the right and 1+ on the left and brachioradialis is trace bilaterally. Sheree's is negative bilaterally. Knee jerks 1+ bilaterally and ankle jerks 1 bilaterally without clonus. Toes are downgoing on the right and upgoing on the left to Babinski testing. Medications and Allergies Allergies Allergy/AdvReac Type Severity Reaction Status Date / Time No Known Allergies Allergy Unverified 03/31/19 13:14 Home Medications Medication Instructions Recorded Confirmed Last Taken Type No Known Home Medications [No 03/31/19 03/31/19 Unknown History Reported Home Medications] Active Meds: Active Medications Acetaminophen (Tylenol) 650 mg PO Q4H PRN PRN Reason: Pain MILD(1-3)/Fever >100.5/BLOOM Aspirin (Aspirin) 325 mg PO QDAY@2200 [facility] Atorvastatin Calcium (Lipitor) 40 mg PO QHS [facility] Last Admin: 03/31/19 22:48 Dose: Not Given Documented by: Famotidine (Pepcid) 20 mg PO BID [facility] Last Admin: 04/01/19 10:23 Dose: 20 mg Documented by: Haloperidol Lactate (Haldol) 5 mg IV Q1H PRN PRN Reason: Unrespon. to mult. doses BZD's Dextrose/Sodium Chloride (D5ns) 1,000 mls @ 100 mls/hr IV DIRECT [facility] Last Admin: 04/01/19 08:30 Dose: 100 mls/hr Documented by: Lorazepam (Ativan) 2 mg IV Q1H PRN PRN Reason: CIWA-Ar 8-15 Last Admin: 04/01/19 05:38 Dose: 2 mg Documented by: Lorazepam (Ativan) 4 mg IV Q1H PRN PRN Reason: CIWA-Ar 16-25 Last Admin: 04/01/19 03:36 Dose: 4 mg Documented by: Lorazepam (Ativan) 4 mg IV Q15MIN PRN PRN Reason: CIWA-Ar >25 Last Admin: 03/31/19 20:43 Dose: 4 mg Documented by: Morphine Sulfate (Morphine) 2 mg IV Q4H PRN PRN Reason: Pain, Moderate (4-6) Ondansetron HCl (Zofran) 4 mg IV Q8H PRN PRN Reason: Nausea And Vomiting Sodium Chloride (Sodium Chloride Flush Syringe 10 Ml) 10 ml IV BID HERMILA Last Admin: 04/01/19 10:23 Dose: 10 ml Documented by: Sodium Chloride (Sodium Chloride Flush Syringe 10 Ml) 10 ml IV PRN PRN PRN Reason: LINE FLUSH Physical Examination - Vital Signs Vital Signs: Vital Signs Pulse Resp Pulse Ox 94 H 15 98 03/31/19 13:36 03/31/19 13:36 03/31/19 13:36 Results - Laboratory Findings CBC and BMP: 04/01/19 04:51 04/01/19 04:51 Abnormal Lab Findings: Abnormal Labs 03/31/19 03/31/19 03/31/19 13:29 13:29 13:29 MCHC 35 H RDW 12.9 L Plt Count Lymph % (Auto) 9.4 L [place] % (Auto) 12.4 H Lymph # 0.5 L Seg Neutrophils % 76.4 H Sodium 123 L Potassium 2.8 L* Chloride 73.7 L Carbon Dioxide Creatinine Glucose 117 H Magnesium Total Bilirubin AST ALT Total Creatine Kinase 574 H Albumin Amylase Urine WBC (Auto) Plasma/Serum Alcohol 03/31/19 03/31/19 03/31/19 13:29 13:29 17:20 MCHC RDW Plt Count Lymph % (Auto) [place] % (Auto) Lymph # Seg Neutrophils % Sodium Potassium Chloride Carbon Dioxide Creatinine Glucose Magnesium 1.60 L Total Bilirubin AST ALT Total Creatine Kinase Albumin Amylase Urine WBC (Auto) 7.0 H Plasma/Serum Alcohol 0.13 H 03/31/19 04/01/19 04/01/19 21:26 04:51 04:51 MCHC RDW 12.8 L Plt Count 103 L Lymph % (Auto) 9.4 L [place] % (Auto) 9.1 H Lymph # 0.5 L Seg Neutrophils % 78.6 H Sodium 134 L D Potassium 3.1 L Chloride 91.9 L Carbon Dioxide 31 H Creatinine 0.5 L Glucose Magnesium Total Bilirubin 1.70 H AST 154 H ALT 73 H Total Creatine Kinase Albumin 3.8 L Amylase 141 H Urine WBC (Auto) Plasma/Serum Alcohol Assessment and Plan Impression: 1. Dysarthria 2. Confusion 3. Hyponatremia Plan: 1. CTAs head and neck ok. 2. CT head shows microvascular disease but not acute, also moderate cerebellar and cerebral atrophy. 3. Brain MRI is pending. 4. Observe for improvement with more normal sodium and other electrolytes. Nonfocal motor exam is reassuring. 45 minutes critical care time spent with this patient. Thank you for an interesting consultation on this unfortunate early 50s male. Will sign off, call for any unusual MRI findings.
[2019-04-01] MEDS: HALDOL IV PRN ×2 (14:55→17:17)
[2019-04-01 20:17] LABS: Chol/HDL Ratio 1.97 %; HDL Cholesterol 101 mg/dL (40-59); LDL Cholesterol,Direct 99 mg/dL (50-130)
--- NOTE | 2019-04-01 20:58 | Progress Note ---
Assessment and Plan - Patient Problems (1) Acute encephalopathy Current Visit: Yes Status: Acute Plan to address problem: Sec to DT's and severe ETOH dependence (2) Delirium tremens Current Visit: Yes Status: Acute Plan to address problem: Today CIWA scores above 25 and hence continue ICU care (3) Hypokalemia Current Visit: Yes Status: Acute Plan to address problem: Supplemented (4) Hypomagnesemia Current Visit: Yes Status: Acute Plan to address problem: Supplemented multiple times Check Mg level again (5) Malnutrition of moderate degree Current Visit: Yes Status: Acute Plan to address problem: Diettitian consult (6) Transaminitis Current Visit: Yes Status: Acute Plan to address problem: Sec to ETOH (7) DVT prophylaxis Current Visit: Yes Status: Acute Plan to address problem: On Lovenox and GI prophylaxis Subjective Date of service: 04/01/19 Principal diagnosis: CVA,S/p TPA DT's Interval history: Ad\mitted for possible stroke s/p TPA and severe ETOH dependence.Stroke ruled out. Now in severe DT's with CIWA scores more than 25 persistently. Objective - Constitutional Vitals: Vital Signs - 12hr 04/01/19 04/01/19 04/01/19 08:41 08:51 09:00 Temperature Pulse Rate 82 83 70 Pulse Rate [ Left Arm] Respiratory 15 15 21 Rate Respiratory Rate [Left Arm] Blood Pressure 137/81 137/81 134/71 Blood Pressure [Left Arm] O2 Sat by Pulse 99 98 99 Oximetry O2 Sat by Pulse Oximetry [Left Arm] 04/01/19 04/01/19 04/01/19 09:11 09:21 09:30 Temperature Pulse Rate 78 76 75 Pulse Rate [ Left Arm] Respiratory 15 19 20 Rate Respiratory Rate [Left Arm] Blood Pressure 136/71 136/71 121/72 Blood Pressure [Left Arm] O2 Sat by Pulse 98 98 98 Oximetry O2 Sat by Pulse Oximetry [Left Arm] 04/01/19 04/01/19 04/01/19 09:41 09:51 10:00 Temperature Pulse Rate 78 84 72 Pulse Rate [ Left Arm] Respiratory 19 16 19 Rate Respiratory Rate [Left Arm] Blood Pressure 134/71 134/71 117/73 Blood Pressure [Left Arm] O2 Sat by Pulse 98 99 100 Oximetry O2 Sat by Pulse Oximetry [Left Arm] 04/01/19 04/01/1904/01/19 10:11 10:21 10:31 Temperature Pulse Rate 79 72 83 Pulse Rate [ Left Arm] Respiratory 22 16 14 Rate Respiratory Rate [Left Arm] Blood Pressure 117/73 117/73 148/103 Blood Pressure [Left Arm] O2 Sat by Pulse 100 99 100 Oximetry O2 Sat by Pulse Oximetry [Left Arm] 04/01/19 04/01/19 04/01/19 11:00 11:30 12:00 Temperature Pulse Rate 64 70 65 Pulse Rate [ Left Arm] Respiratory 19 10 L 15 Rate Respiratory Rate [Left Arm] Blood Pressure 144/99 137/84 142/75 Blood Pressure [Left Arm] O2 Sat by Pulse 99 99 100 Oximetry O2 Sat by Pulse Oximetry [Left Arm] 04/01/19 04/01/19 04/01/19 12:30 13:01 13:09 Temperature Pulse Rate 73 79 Pulse Rate [ 75 Left Arm] Respiratory 17 12 Rate Respiratory 12 Rate [Left Arm] Blood Pressure 135/84 125/78 Blood Pressure 125/78 [Left Arm] O2 Sat by Pulse 100 99 Oximetry O2 Sat by Pulse 99 Oximetry [Left Arm] 04/01/19 04/01/19 04/01/19 13:31 14:00 14:01 Temperature Pulse Rate 88 82 Pulse Rate [ Left Arm] Respiratory 13 17 Rate Respiratory 12 Rate [Left Arm] Blood Pressure 125/78 130/84 Blood Pressure 125/78 [Left Arm] O2 Sat by Pulse 98 97 Oximetry O2 Sat by Pulse 97 Oximetry [Left Arm] 04/01/19 04/01/19 04/01/19 14:31 15:00 15:31 Temperature Pulse Rate 81 76 65 Pulse Rate [ Left Arm] Respiratory 14 13 19 Rate Respiratory Rate [Left Arm] Blood Pressure 130/84 115/65 115/65 Blood Pressure [Left Arm] O2 Sat by Pulse 99 98 97 Oximetry O2 Sat by Pulse Oximetry [Left Arm] 04/01/19 04/01/19 04/01/19 16:00 17:00 18:00 Temperature 97.3 F L Pulse Rate 69 75 83 Pulse Rate [ Left Arm] Respiratory 22 12 21 Rate Respiratory Rate [Left Arm] Blood Pressure 117/72 114/68 127/82 Blood Pressure [Left Arm] O2 Sat by Pulse 97 96 Oximetry O2 Sat by Pulse Oximetry [Left Arm] 04/01/19 04/01/19 19:00 19:24 Temperature Pulse Rate 79 Pulse Rate [ Left Arm] Respiratory 13 Rate Respiratory Rate [Left Arm] Blood Pressure 126/73 Blood Pressure [Left Arm] O2 Sat by Pulse 98 98 Oximetry O2 Sat by Pulse Oximetry [Left Arm] General appearance: Present: no acute distress, severe distress, disheveled - EENT Eyes: PERRL, EOM intact ENT: hearing intact, clear oral mucosa Ears: bilateral: normal - Neck Neck: supple, normal ROM - Respiratory Respiratory effort: normal Respiratory: bilateral: CTA - Breasts Breasts: normal - Cardiovascular Heart rate: 99 Rhythm: regular Heart Sounds: Present: S1 & S2. Absent: gallop, rub Extremities: no ischemia, pulses intact, No edema, normal color, Full ROM - Gastrointestinal General gastrointestinal: Present: soft, non-tender, non-distended, normal bowel sounds - Genitourinary Male genitourinary: normal - Integumentary Integumentary: clear, warm, dry - Musculoskeletal Musculoskeletal: 1, strength equal bilaterally - Neurologic Neurologic: CNII-XII intact, moves all extremities - Psychiatric Psychiatric: cooperative, agitated - Allied health notes Allied health notes reviewed: nursing, case management - Labs CBC & Chem 7: 04/01/19 04:51 04/04/19 14:00 Labs: Abnormal lab results 03/31/19 04/01/19 04/01/19 Range/Units 21:26 04:51 04:51 RDW 12.8 L (13.2-15.2) % Plt Count 103 L (140-440) K/mm3 Lymph % (Auto) 9.4 L (13.4-35.0) % Noble % (Auto) 9.1 H (0.0-7.3) % Lymph # 0.5 L (1.2-5.4) K/mm3 Seg Neutrophils % 78.6 H (40.0-70.0) % Sodium 134 L D (137-145) mmol/L Potassium 3.1 L (3.6-5.0) mmol/L Chloride 91.9 L (98-107) mmol/L Carbon Dioxide 31 H (22-30) mmol/L Creatinine 0.5 L (0.8-1.5) mg/dL Total Bilirubin 1.70 H (0.1-1.2) mg/dL AST 154 H (5-40) units/L ALT 73 H (7-56) units/L Albumin 3.8 L (3.9-5) g/dL HDL Cholesterol 101 H (40-59) mg/dL Amylase 141 H (27-131) units/L
[2019-04-01] MEDS: ASPIRIN PO SCH (21:31)
[2019-04-01] MEDS: TYLENOL PO PRN (21:33)
[2019-04-01] MEDS: MORPHINE IV PRN (21:34)
[2019-04-02] MEDS: MORPHINE IV PRN ×2 (02:36→06:35)
[2019-04-02] MEDS: ATIVAN IV PRN ×8 (02:37→20:16)
[2019-04-02] MEDS: SODIUM CHLORIDE FLUSH SYRINGE 10 ML IV SCH ×2 (09:05→09:32)
[2019-04-02] MEDS: PEPCID PO SCH ×2 (09:31→22:35)
--- NOTE | 2019-04-02 10:16 | Progress Note ---
Assessment and Plan - Patient Problems (1) Acute encephalopathy Current Visit: Yes Status: Acute Plan to address problem: Sec to DT's and severe ETOH dependence (2) Delirium tremens Current Visit: Yes Status: Acute Plan to address problem: Today CIWA scores above 25 and hence continue ICU care (3) Hypokalemia Current Visit: Yes Status: Acute Plan to address problem: Supplemented (4) Hypomagnesemia Current Visit: Yes Status: Acute Plan to address problem: Supplemented multiple times Check Mg level again (5) Hyponatremia Current Visit: Yes Status: Acute Plan to address problem: Corrected (6) Malnutrition of moderate degree Current Visit: Yes Status: Acute Plan to address problem: Diettitian consult (7) Transaminitis Current Visit: Yes Status: Acute Plan to address problem: Sec to ETOH (8) DVT prophylaxis Current Visit: Yes Status: Acute Plan to address problem: On Lovenox and GI prophylaxis Subjective Date of service: 04/02/19 Principal diagnosis: CVA,S/p TPA DT's Interval history: Ad\mitted for possible stroke s/p TPA and severe ETOH dependence.Stroke ruled out. Now in severe DT's with CIWA scores more than 25 persistently. Objective - Constitutional Vitals: Vital Signs - 12hr 04/01/19 04/01/19 04/02/19 23:01 23:45 00:00 Temperature 98.7 F Pulse Rate 76 75 80 Respiratory 15 12 18 Rate Blood Pressure 151/89 151/89 149/89 O2 Sat by Pulse 98 99 98 Oximetry 04/02/19 04/02/19 04/02/19 01:00 02:00 03:01 Temperature Pulse Rate 75 72 100 H Respiratory 10 L 18 13 Rate Blood Pressure 159/85 159/85 188/95 O2 Sat by Pulse 99 98 98 Oximetry 04/02/19 04/02/19 04/02/19 04:00 04:01 05:00 Temperature 98.4 F Pulse Rate 122 H 79 Respiratory 23 24 11 L Rate Blood Pressure 196/107 142/82 O2 Sat by Pulse 99 100 Oximetry 04/02/19 04/02/19 04/02/19 06:01 07:01 08:00 Temperature Pulse Rate 69 90 93 H Respiratory 15 25 H 14 Rate Blood Pressure 148/88 169/90 158/97 O2 Sat by Pulse 98 99 97 Oximetry 04/02/19 09:00 Temperature Pulse Rate 91 H Respiratory 13 Rate Blood Pressure 137/85 O2 Sat by Pulse 98 Oximetry General appearance: Present: severe distress, well-nourished - EENT Eyes: PERRL, EOM intact ENT: hearing intact, clear oral mucosa Ears: bilateral: normal - Neck Neck: supple, normal ROM - Respiratory Respiratory effort: normal Respiratory: bilateral: CTA - Breasts Breasts: normal - Cardiovascular Heart rate: 88 Rhythm: regular Heart Sounds: Present: S1 & S2. Absent: gallop, rub Extremities: no ischemia, pulses intact, No edema, normal color, Full ROM - Gastrointestinal General gastrointestinal: Present: soft, non-tender, non-distended, normal bowel sounds - Genitourinary Male genitourinary: normal - Integumentary Integumentary: clear, warm, dry - Musculoskeletal Musculoskeletal: 1, strength equal bilaterally - Neurologic Neurologic: CNII-XII intact, moves all extremities - Psychiatric Psychiatric: agitated - Labs CBC & Chem 7: 04/01/19 04:51 04/04/19 14:00 Labs: Abnormal lab results 04/01/19 Range/Units 04:51 HDL Cholesterol 101 H (40-59) mg/dL
[2019-04-02 10:56] LABS: BUN/Creatinine Ratio 16; Blood Urea Nitrogen 8 mg/dL (9-20); Calcium 8.8 mg/dL (8.4-10.2); Hemolysis Index 5
[2019-04-02] MEDS: LIBRIUM PO SCH ×3 (11:10→22:34)
[2019-04-02] MEDS: KCL 10MEQ/100ML 10 MEQ/100 ML BAG IV SCH ×8 (11:15→18:34)
--- NOTE | 2019-04-02 11:28 | Consultation ---
History of Present Illness Consult date: 04/02/19 Requesting physician: NIMA FERRELL History of present illness: The patient is a 53-year-old male presented with a chief complaint of dysarthria.Patient denied numbness or weakness at the time of presentation, possible dysphasia and headache as well as ataxia and given TPA. He was admitted to ICU for monitoring and care s/p TPA but has since continued to have active DTS and is on CIWA protocol. His Ativan requirements are such that he needs ongoing care in [facility] ICU. Patient was seen and examined. Vitals, labs, medications, chart and imaging reviewed. History is per medical records, as he is unable to give me a history, he just received Ativan as part of his treatment for DTs. ED Past Medical Hx - Past Medical History Previous Medical History?: No - Surgical History Past Surgical History?: No - Social History Smoking Status: Current Every Day Smoker Substance Use Type: None Medications and Allergies Allergies Allergy/AdvReac Type Severity Reaction Status Date / Time No Known Allergies Allergy Unverified 03/31/19 13:14 Home Medications Medication Instructions Recorded Confirmed Last Taken Type No Known Home Medications [No 03/31/19 03/31/19 Unknown History Reported Home Medications] Active Meds: Active Medications Acetaminophen (Tylenol) 650 mg PO Q4H PRN PRN Reason: Pain MILD(1-3)/Fever >100.5/BLOOM Last Admin: 04/01/19 21:33 Dose: 650 mg Documented by: Aspirin (Aspirin) 325 mg PO QDAY@2200 [facility] Last Admin: 04/01/19 21:31 Dose: 325 mg Documented by: Atorvastatin Calcium (Lipitor) 40 mg PO QHS [facility] Last Admin: 04/01/19 21:32 Dose: 40 mg Documented by: Chlordiazepoxide HCl (Librium) 25 mg PO Q6H [facility] Famotidine (Pepcid) 20 mg PO BID [facility] Last Admin: 04/02/19 09:31 Dose: 20 mg Documented by: Haloperidol Lactate (Haldol) 5 mg IV Q1H PRN PRN Reason: Unrespon. to mult. doses BZD's Last Admin: 04/01/19 17:17 Dose: 5 mg Documented by: Potassium Chloride (Kcl 10meq/100ml) 10 meq in 100 mls @ 100 mls/hr IV Q1H [facility] Stop: 04/02/19 17:59 Lorazepam (Ativan) 2 mg IV Q1H PRN PRN Reason: CIWA-Ar 8-15 Last Admin: 04/01/19 05:38 Dose: 2 mg Documented by: Lorazepam (Ativan) 4 mg IV Q1H PRN PRN Reason: CIWA-Ar 16-25 Last Admin: 04/02/19 09:32 Dose: 4 mg Documented by: Lorazepam (Ativan) 4 mg IV Q15MIN PRN PRN Reason: CIWA-Ar >25 Last Admin: 04/02/19 06:47 Dose: 4 mg Documented by: Morphine Sulfate (Morphine) 2 mg IV Q4H PRN PRN Reason: Pain, Moderate (4-6) Last Admin: 04/02/19 06:35 Dose: 2 mg Documented by: Ondansetron HCl (Zofran) 4 mg IV Q8H PRN PRN Reason: Nausea And Vomiting Sodium Chloride (Sodium Chloride Flush Syringe 10 Ml) 10 ml IV BID [facility] Last Admin: 04/02/19 09:32 Dose: 10 ml Documented by: Sodium Chloride (Sodium Chloride Flush Syringe 10 Ml) 10 ml IV PRN PRN PRN Reason: LINE FLUSH Review of Systems ROS unobtainable: due to mental status Physical Examination Vital signs: Vital Signs Pulse Resp Pulse Ox 94 H 15 98 03/31/19 13:36 03/31/19 13:36 03/31/19 13:36 General appearance: appears uncomfortable Eyes: non-icteric ENT: oropharynx dry Neck: supple, no lymphadenopathy, no JVD Effort: mildly labored Ascultation: Bilateral: clear Cardiovascular: other (tacycardia, S1,S2, no murmurs) Gastrointestinal: normoactive bowel sounds, soft, non-tender, non-distended Integumentary: normal Extremities: no cyanosis, no edema, pulses normal, no ischemia or petechiae non-focal exam, unable to assess other (agitation on and off with somnolence) Results - Laboratory Findings CBC and BMP: 04/01/19 04:51 04/02/19 09:59 PT/INR, D-dimer PT 13.2 Sec. (12.2-14.9) 03/31/19 13:29 INR 1.03 (0.87-1.13) 03/31/19 13:29 Abnormal lab findings: Abnormal Labs 03/31/19 03/31/19 03/31/19 13:29 13:29 13:29 MCHC 35 H RDW 12.9 L Plt Count Lymph % (Auto) 9.4 L Edwards % (Auto) 12.4 H Lymph # 0.5 L Seg Neutrophils % 76.4 H Sodium 123 L Potassium 2.8 L* Chloride 73.7 L Carbon Dioxide BUN Creatinine Glucose 117 H Magnesium Total Bilirubin AST ALT Total Creatine Kinase 574 H Albumin HDL Cholesterol Amylase Urine WBC (Auto) Plasma/Serum Alcohol 03/31/19 03/31/19 03/31/19 13:29 13:29 17:20 MCHC RDW Plt Count Lymph % (Auto) Edwards % (Auto) Lymph # Seg Neutrophils % Sodium Potassium Chloride Carbon Dioxide BUN Creatinine Glucose Magnesium 1.60 L Total Bilirubin AST ALT Total Creatine Kinase Albumin HDL Cholesterol Amylase Urine WBC (Auto) 7.0 H Plasma/Serum Alcohol 0.13 H 03/31/19 04/01/19 04/01/19 21:26 04:51 04:51 MCHC RDW 12.8 L Plt Count 103 L Lymph % (Auto) 9.4 L Edwards % (Auto) 9.1 H Lymph # 0.5 L Seg Neutrophils % 78.6 H Sodium 134 L D Potassium 3.1 L Chloride 91.9 L Carbon Dioxide 31 H BUN Creatinine 0.5 L Glucose Magnesium Total Bilirubin 1.70 H AST 154 H ALT 73 H Total Creatine Kinase Albumin 3.8 L HDL Cholesterol 101 H Amylase 141 H Urine WBC (Auto) Plasma/Serum Alcohol 04/02/19 04/02/19 09:59 09:59 MCHC RDW Plt Count Lymph % (Auto) Edwards % (Auto) Lymph # Seg Neutrophils % Sodium Potassium 2.9 L* Chloride Carbon Dioxide BUN 8 L Creatinine 0.5 L Glucose Magnesium 1.20 L Total Bilirubin AST ALT Total Creatine Kinase Albumin HDL Cholesterol Amylase Urine WBC (Auto) Plasma/Serum Alcohol - Diagnostic Findings Chest x-ray: image reviewed Assessment and Plan Alcohol intoxication with DTs Hyponatremia Hypokalemia Hypomagnesemia Dysarthria Toxic-metabolic encephalaopthy -Start scheduled librium, CIWA protocol -Replace electrolytes as indicated -Place small bowel feeding tube and initiate enteric feeding -VTE prophylaxis -Blood pressure control and monitoring -Aspiration precautions -Alcohol counselling once he is able to actively participate in the discussion -Accuchecks with glycemic control, avoid hypoglycemia -Follow up MRI brain results -Monitor for bleeding.
[2019-04-02] MEDS ORDERED: MAGNESIUM SULFATE 2GM/50ML 2 GM/50 ML BAG IV ONE (15:30)
--- NOTE | 2019-04-02 22:02 | Vascular Lab Report ---
TECHNIQUE: Ultrasound of the bilateral carotid arteries. Reported ICA Stenosis % per the NASCET crite karis. Exam is technically difficult due to the patient's cooperation and positioning. PRIORS : None FINDINGS: PLAQUE DISTRIBUTION: Minimal smooth heterogeneous plaques noted bilaterally VELOCITIES: RIGHT ICA peak systolic velocity (cm/sec): 67 ICA end diastolic velocity (cm/sec): 23 CCA peak systolic velocity (cm/sec): 75 ECA peak systolic velocity (cm/sec): 83 ICA/CCA systolic velocity ratio (cm/sec): 0.89 Right vertebral: Antegrade ICA STENOSIS ESTIMATION: < 50 % LEFT ICA peak systolic velocity (cm/sec): 68 ICA end diastolic velocity (cm/sec): 28 CCA peak systolic velocity (cm/sec): 71 ECA peak systolic velocity (cm/sec): 72 ICA/CCA systolic velocity ratio (cm/sec): 0.96 Left vertebral: Antegrade ICA STENOSIS ESTIMATION: < 50 % IMPRESSION: No clinically significant areas of stenosis noted bilaterally. ICA Stenosis % per the NASCET criteria is < 50 % on the right and < 50 % on the left. This document is electronically signed by Lalita Buck MD., April 02 2019 09:59:57 PM ET
[2019-04-02] MEDS: ASPIRIN PO SCH (22:34)
[2019-04-03] MEDS: ATIVAN IV PRN ×4 (01:41→16:44)
--- NOTE | 2019-04-03 07:06 | Progress Note ---
Assessment and Plan - Patient Problems (1) Acute encephalopathy Current Visit: Yes Status: Acute Plan to address problem: Sec to DT's and severe ETOH dependence (2) Delirium tremens Current Visit: Yes Status: Acute Plan to address problem: Today CIWA scores above 25 and hence continue ICU care (3) Hypokalemia Current Visit: Yes Status: Acute Plan to address problem: Supplemented (4) Hypomagnesemia Current Visit: Yes Status: Acute Plan to address problem: Supplemented multiple times Check Mg level again (5) Hyponatremia Current Visit: Yes Status: Acute Plan to address problem: Corrected (6) Malnutrition of moderate degree Current Visit: Yes Status: Acute Plan to address problem: Diettitian consult (7) Transaminitis Current Visit: Yes Status: Acute Plan to address problem: Sec to ETOH (8) EtOH dependence Current Visit: Yes Status: Chronic Qualifiers: Substance use status: in withdrawal Complication of substance-induced condition: with delirium Qualified Code(s): F10.231 - Alcohol dependence with withdrawal delirium Plan to address problem: Patient to be counselled with a syriac inerpretor when more alert and oriented (9) DVT prophylaxis Current Visit: Yes Status: Acute Plan to address problem: On Lovenox and GI prophylaxis Subjective Date of service: 04/03/19 Principal diagnosis: CVA,S/p TPA DT's Interval history: Ad\mitted for possible stroke s/p TPA and severe ETOH dependence.Stroke ruled out. Now in severe DT's with CIWA scores more than 25 persistently.5 Objective - Constitutional Vitals: Vital Signs - 12hr 04/02/19 04/02/19 04/02/19 20:00 20:40 21:00 Temperature 99.1 F Pulse Rate 82 69 65 Pulse Rate [ 68 From Monitor] Respiratory 16 15 17 Rate Blood Pressure 150/86 151/95 151/95 O2 Sat by Pulse 99 100 98 Oximetry 04/02/19 04/02/19 04/02/19 21:01 22:00 22:01 Temperature Pulse Rate 68 68 87 Pulse Rate [ From Monitor] Respiratory 17 17 Rate Blood Pressure 149/82 153/81 O2 Sat by Pulse 98 100 Oximetry 04/02/19 04/03/19 04/03/19 23:00 00:00 01:01 Temperature 98.8 F Pulse Rate 91 H 99 H 92 H Pulse Rate [ 74 From Monitor] Respiratory 18 11 L 27 H Rate Blood Pressure 158/104 183/117 156/89 O2 Sat by Pulse 98 98 99 Oximetry 04/03/19 04/03/19 04/03/19 02:00 03:00 04:00 Temperature 98.1 F Pulse Rate 88 80 100 H Pulse Rate [ 109 H From Monitor] Respiratory 17 20 19 Rate Blood Pressure 162/93 162/111 166/108 O2 Sat by Pulse 98 99 96 Oximetry 04/03/19 05:00 Temperature Pulse Rate 79 Pulse Rate [ From Monitor] Respiratory 16 Rate Blood Pressure 141/91 O2 Sat by Pulse 99 Oximetry General appearance: Present: no acute distress, well-nourished - EENT Eyes: PERRL, EOM intact ENT: hearing intact, clear oral mucosa Ears: bilateral: normal - Neck Neck: supple, normal ROM - Respiratory Respiratory effort: normal Respiratory: bilateral: CTA - Breasts Breasts: normal - Cardiovascular Heart rate: 78 Rhythm: regular Heart Sounds: Present: S1 & S2. Absent: gallop, rub Extremities: no ischemia, pulses intact, No edema, normal color, Full ROM - Gastrointestinal General gastrointestinal: Present: soft, non-tender, non-distended, normal bowel sounds - Genitourinary Male genitourinary: normal - Integumentary Integumentary: clear, warm, dry - Musculoskeletal Musculoskeletal: 1, strength equal bilaterally - Neurologic Neurologic: moves all extremities - Psychiatric Psychiatric: agitated, other (Severly confused) - Allied health notes Allied health notes reviewed: nursing, case management - Labs CBC & Chem 7: 04/01/19 04:51 04/04/19 14:00 Labs: Abnormal lab results 04/02/19 04/02/19 04/03/19 Range/Units 09:59 09:59 05:08 Potassium 2.9 L* (3.6-5.0) mmol/L BUN 8 L (9-20) mg/dL Creatinine 0.5 L (0.8-1.5) mg/dL Magnesium 1.20 L 1.30 L (1.7-2.3) mg/dL
[2019-04-03 09:50] LABS: BUN/Creatinine Ratio 22; Blood Urea Nitrogen 11 mg/dL (9-20); Calcium 9.2 mg/dL (8.4-10.2); Hemolysis Index 47
[2019-04-03] MEDS: MAGNESIUM SULFATE 2GM/50ML 2 GM/50 ML BAG IV SCH ×3 (10:10→16:10)
--- NOTE | 2019-04-03 11:03 | Progress Note ---
Assessment and Plan Alcohol intoxication with DTs Hyponatremia Hypokalemia Hypomagnesemia Dysarthria Toxic-metabolic encephalopathy - continue scheduled librium, CIWA protocol - add seroquel re: high CIWA scores - NGT placed and tube feeds started - Replace electrolytes as indicated - Place small bowel feeding tube and initiate enteric feeding - VTE prophylaxis - Blood pressure control and monitoring - Aspiration precautions - Alcohol counselling once he is able to actively participate in the discussion - Accuchecks with glycemic control, avoid hypoglycemia - Follow up MRI brain results - Monitor for bleeding. ... re-evaluate in am & prn Subjective Date of service: 04/03/19 Principal diagnosis: Alcohol withdrawal with DTs; Dysarthria; Toxic-metabolic encephalopathy Interval history: Patient is seen today for: Alcohol intoxication with DTs; Hyponatremia; Hypokalemia; Hypomagnesemia; Dysarthria; Toxic-metabolic encephalopathy Seen and examined at bedside; 24hour events reviewed; nursing and respiratory care staff consulted; no adverse overnight events reported to me; sedated; CIWA scores still > 30; No emesis or overt aspiration; in restraints; no overt hemodynamic decompensation Objective Vital Signs - 12hr 04/03/19 04/03/19 04/03/19 00:00 01:01 02:00 Temperature 98.8 F Pulse Rate 99 H 92 H 88 Pulse Rate [ 74 From Monitor] Respiratory 11 L 27 H 17 Rate Blood Pressure 183/117 156/89 162/93 O2 Sat by Pulse 98 99 98 Oximetry 04/03/19 04/03/19 04/03/19 03:00 04:00 05:00 Temperature 98.1 F Pulse Rate 80 100 H 79 Pulse Rate [ 109 H From Monitor] Respiratory 20 19 16 Rate Blood Pressure 162/111 166/108 141/91 O2 Sat by Pulse 99 96 99 Oximetry 04/03/19 04/03/19 04/03/19 06:01 07:00 08:00 Temperature 98.4 F Pulse Rate 91 H 88 Pulse Rate [ From Monitor] Respiratory 25 H 27 H Rate Blood Pressure 160/101 159/97 O2 Sat by Pulse 98 96 Oximetry Constitutional: appears uncomfortable, other (middle aged, thin HM, normocephalic and atraumatic with mildly increased resp effort at rest) Eyes: non-icteric ENT: oropharynx dry Neck: supple, no lymphadenopathy, no JVD, other (no thyromegaly) Effort: mildly labored Ascultation: Bilateral: clear Percussion: Bilateral: not dull Cardiovascular: regular rate and rhythm, other (tacycardia, S1,S2, no murmurs) Gastrointestinal: normoactive bowel sounds, soft, non-tender, non-distended, other (No palpable HSM) Integumentary: normal Extremities: no cyanosis, no edema, pulses normal, no ischemia or petechiae Neurologic: non-focal exam (grossly), pupils equal and round, unable to assess Psychiatric: other (agitation on and off with somnolence) CBC and BMP: 04/01/19 04:51 04/04/19 14:00 ABG, PT/INR, D-dimer: PT/INR, D-dimer PT 13.2 Sec. (12.2-14.9) 03/31/19 13:29 INR 1.03 (0.87-1.13) 03/31/19 13:29 Abnormal lab findings: Abnormal Labs 03/31/19 03/31/19 03/31/19 13:29 13:29 13:29 MCHC 35 H RDW 12.9 L Plt Count Lymph % (Auto) 9.4 L [place] % (Auto) 12.4 H Lymph # 0.5 L Seg Neutrophils % 76.4 H Sodium 123 L Potassium 2.8 L* Chloride 73.7 L Carbon Dioxide BUN Creatinine Glucose 117 H Magnesium Total Bilirubin AST ALT Total Creatine Kinase 574 H Albumin HDL Cholesterol Amylase Urine WBC (Auto) Plasma/Serum Alcohol 03/31/19 03/31/19 03/31/19 13:29 13:29 17:20 MCHC RDW Plt Count Lymph % (Auto) [place] % (Auto) Lymph # Seg Neutrophils % Sodium Potassium Chloride Carbon Dioxide BUN Creatinine Glucose Magnesium 1.60 L Total Bilirubin AST ALT Total Creatine Kinase Albumin HDL Cholesterol Amylase Urine WBC (Auto) 7.0 H Plasma/Serum Alcohol 0.13 H 03/31/19 04/01/19 04/01/19 21:26 04:51 04:51 MCHC RDW 12.8 L Plt Count 103 L Lymph % (Auto) 9.4 L [place] % (Auto) 9.1 H Lymph # 0.5 L Seg Neutrophils % 78.6 H Sodium 134 L D Potassium 3.1 L Chloride 91.9 L Carbon Dioxide 31 H BUN Creatinine 0.5 L Glucose Magnesium Total Bilirubin 1.70 H AST 154 H ALT 73 H Total Creatine Kinase Albumin 3.8 L HDL Cholesterol 101 H Amylase 141 H Urine WBC (Auto) Plasma/Serum Alcohol 04/02/19 04/02/19 04/03/19 09:59 09:59 05:08 MCHC RDW Plt Count Lymph % (Auto) [place] % (Auto) Lymph # Seg Neutrophils % Sodium Potassium 2.9 L* Chloride Carbon Dioxide BUN 8 L Creatinine 0.5 L Glucose Magnesium 1.20 L 1.30 L Total Bilirubin AST ALT Total Creatine Kinase Albumin HDL Cholesterol Amylase Urine WBC (Auto) Plasma/Serum Alcohol 04/03/19 08:56 MCHC RDW Plt Count Lymph % (Auto) [place] % (Auto) Lymph # Seg Neutrophils % Sodium Potassium Chloride Carbon Dioxide BUN Creatinine 0.5 L Glucose Magnesium Total Bilirubin AST ALT Total Creatine Kinase Albumin HDL Cholesterol Amylase Urine WBC (Auto) Plasma/Serum Alcohol Chest x-ray: pending
[2019-04-03] MEDS: SODIUM CHLORIDE FLUSH SYRINGE 10 ML IV SCH (11:11)
[2019-04-03] MEDS ORDERED: MAGNESIUM SULFATE 4GM/100ML 4 GM/100 ML BAG IV ONE (12:00)
--- NOTE | 2019-04-03 13:58 | XRay Report ---
AP ABDOMEN: HISTORY: Nasogastric tube placement. The nasogastric tube terminates in the fundus of the stomach. The abdominal gas pattern is unremarkable. No masses or organomegaly is identified and there is no gross evidence of free air or fluid. No significant soft tissue calcifications are noted. IMPRESSION: Unremarkable abdomen.
[2019-04-03] MEDS ORDERED: SIMPLE SYRUP FEEDTUBE PRN ×2 (14:35)
[2019-04-03] MEDS ORDERED: PANCREAZE DR 10,500 UNIT FEEDTUBE PRN (14:35)
[2019-04-03] MEDS ORDERED: SODIUM BICARBONATE FEEDTUBE PRN (14:35)
[2019-04-03] MEDS: PEPCID PO SCH ×2 (16:11→23:00)
[2019-04-03] MEDS: LIBRIUM PO SCH ×4 (16:12→23:01)
[2019-04-03] MEDS: ASPIRIN PO SCH (23:00)
[2019-04-03] MEDS: LOVENOX SUB-Q SCH (23:10)
[2019-04-04] MEDS: ATIVAN IV PRN (05:26)
[2019-04-04] MEDS: LIBRIUM PO SCH ×4 (05:27→22:25)
[2019-04-04] MEDS: HALDOL IV PRN (05:35)
[2019-04-04] MEDS: SODIUM CHLORIDE FLUSH SYRINGE 10 ML IV SCH ×3 (08:54→22:23)
[2019-04-04] MEDS: PEPCID PO SCH ×2 (09:50→22:22)
[2019-04-04 14:53] LABS: BUN/Creatinine Ratio 34; Blood Urea Nitrogen 17 mg/dL (9-20); Calcium 9.2 mg/dL (8.4-10.2); Hemolysis Index 12
--- NOTE | 2019-04-04 15:01 | Progress Note ---
Assessment and Plan - Patient Problems (1) Acute encephalopathy Current Visit: Yes Status: Acute Plan to address problem: Sec to DT's and severe ETOH dependence (2) Delirium tremens Current Visit: Yes Status: Acute Plan to address problem: Today CIWA scores came below 25 and to transfer to regular Medical floor Cont CIWA protocol (3) EtOH dependence Current Visit: Yes Status: Chronic Qualifiers: Substance use status: in withdrawal Complication of substance-induced condition: with delirium Qualified Code(s): F10.231 - Alcohol dependence with withdrawal delirium Plan to address problem: Patient to be counselled with a [place] inerpretor when more alert and oriented (4) Hypokalemia Current Visit: Yes Status: Acute Plan to address problem: Supplemented (5) Hypomagnesemia Current Visit: Yes Status: Acute Plan to address problem: Supplemented multiple times Check Mg level again (6) Hyponatremia Current Visit: Yes Status: Acute Plan to address problem: Corrected (7) Transaminitis Current Visit: Yes Status: Acute Plan to address problem: Sec to ETOH (8) Malnutrition of moderate degree Current Visit: Yes Status: Acute Plan to address problem: Diettitian consult (9) DVT prophylaxis Current Visit: Yes Status: Acute Plan to address problem: On Lovenox and GI prophylaxis Subjective Date of service: 04/04/19 Principal diagnosis: Alcohol withdrawal with DTs; Dysarthria; Toxic-metabolic encephalopathy Interval history: Ad\mitted for possible stroke s/p TPA and severe ETOH dependence.Stroke ruled o ut. Now in severe DT's with CIWA scores more than 25 persistently.Today is the first time CIWA scores have come down below 25 Objective - Constitutional Vitals: Vital Signs - 12hr 04/04/19 04/04/19 04/04/19 04:00 05:01 06:01 Pulse Rate 74 136 H Pulse Rate [ 105 H From Monitor] Respiratory 13 14 Rate Blood Pressure 123/87 126/85 132/96 O2 Sat by Pulse 100 94 96 Oximetry 04/04/19 04/04/19 04/04/19 07:00 08:00 09:00 Pulse Rate 69 72 74 Pulse Rate [ 95 H From Monitor] Respiratory 16 16 13 Rate Blood Pressure 134/77 118/84 133/90 O2 Sat by Pulse 99 99 100 Oximetry 04/04/19 04/04/19 04/04/19 10:00 11:00 12:00 Pulse Rate 80 89 79 Pulse Rate [ 84 From Monitor] Respiratory 15 14 13 Rate Blood Pressure 125/88 110/83 124/80 O2 Sat by Pulse 100 97 99 Oximetry 04/04/19 13:00 Pulse Rate 81 Pulse Rate [ From Monitor] Respiratory 14 Rate Blood Pressure 117/82 O2 Sat by Pulse 98 Oximetry General appearance: Present: no acute distress, well-nourished - EENT Eyes: PERRL, EOM intact ENT: hearing intact, clear oral mucosa Ears: bilateral: normal - Neck Neck: supple, normal ROM - Respiratory Respiratory effort: normal Respiratory: bilateral: CTA - Breasts Breasts: normal - Cardiovascular Heart rate: 88 Rhythm: regular Heart Sounds: Present: S1 & S2. Absent: gallop, rub Extremities: no ischemia, pulses intact, No edema, normal color, Full ROM - Gastrointestinal General gastrointestinal: Present: soft, non-tender, non-distended, normal bowel sounds - Genitourinary Male genitourinary: normal - Integumentary Integumentary: clear, warm, dry - Musculoskeletal Musculoskeletal: 1, strength equal bilaterally - Neurologic Neurologic: CNII-XII intact, moves all extremities - Psychiatric Psychiatric: agitated - Allied health notes Allied health notes reviewed: nursing, case management - Labs CBC & Chem 7: 04/01/19 04:51 04/04/19 14:00 Labs: Abnormal lab results 04/04/19 04/04/19 Range/Units 14:00 14:00 Potassium 3.0 L D (3.6-5.0) mmol/L Chloride 97.9 L (98-107) mmol/L Creatinine 0.5 L (0.8-1.5) mg/dL Glucose 112 H (75-100) mg/dL Magnesium 1.60 L (1.7-2.3) mg/dL
[2019-04-04] MEDS ORDERED: MAGNESIUM SULFATE 2GM/50ML 2 GM/50 ML BAG IV ONE (15:02)
--- NOTE | 2019-04-04 15:52 | Progress Note ---
Assessment and Plan Alcohol intoxication with DTs Hyponatremia Hypokalemia Hypomagnesemia Dysarthria Toxic-metabolic encephalopathy - continue scheduled librium, CIWA protocol - continue seroquel with slow taper - continue tube feeds as tolerated - Replace electrolytes as indicated - VTE prophylaxis - Blood pressure control and monitoring - continue aspiration precautions - Alcohol counseling once he is able to actively participate in the discussion - continue accuchecks with glycemic control per SSI (avoid hypoglycemia) - Follow up MRI brain results - Monitor for bleeding. ... re-evaluate in am & prn ... transfer to medical floor ok Subjective Date of service: 04/04/19 Principal diagnosis: Alcohol withdrawal with DTs; Dysarthria; Toxic-metabolic encephalopathy Interval history: Patient is seen today for: Alcohol intoxication with DTs; Hyponatremia; Hypokalemia; Hypomagnesemia; Dysarthria; Toxic-metabolic encephalopathy Seen and examined at bedside; 24hour events reviewed; nursing and respiratory care staff consulted; no adverse overnight events reported to me; sedated; less agitated; CIWA scores improved; no emesis or overt aspiration Objective Vital Signs - 12hr 04/04/19 04/04/19 04/04/19 04:00 05:01 06:01 Pulse Rate 74 136 H Pulse Rate [ 105 H From Monitor] Respiratory 13 14 Rate Blood Pressure 123/87 126/85 132/96 O2 Sat by Pulse 100 94 96 Oximetry 04/04/19 04/04/19 04/04/19 07:00 08:00 09:00 Pulse Rate 69 72 74 Pulse Rate [ 95 H From Monitor] Respiratory 16 16 13 Rate Blood Pressure 134/77 118/84 133/90 O2 Sat by Pulse 99 99 100 Oximetry 04/04/19 04/04/19 04/04/19 10:00 11:00 12:00 Pulse Rate 80 89 79 Pulse Rate [ 84 From Monitor] Respiratory 15 14 13 Rate Blood Pressure 125/88 110/83 124/80 O2 Sat by Pulse 100 97 99 Oximetry 04/04/19 13:00 Pulse Rate 81 Pulse Rate [ From Monitor] Respiratory 14 Rate Blood Pressure 117/82 O2 Sat by Pulse 98 Oximetry Constitutional: appears uncomfortable, other (middle aged, thin HM, normocephalic and atraumatic with mildly increased resp effort at rest) Eyes: non-icteric ENT: oropharynx dry Neck: supple, no lymphadenopathy, no JVD, other (no thyromegaly) Effort: mildly labored Ascultation: Bilateral: clear Percussion: Bilateral: not dull Cardiovascular: regular rate and rhythm, other (tacycardia, S1,S2, no murmurs) Gastrointestinal: normoactive bowel sounds, soft, non-tender, non-distended, other (No palpable HSM) Integumentary: normal Extremities: no cyanosis, no edema, pulses normal, no ischemia or petechiae Neurologic: non-focal exam (grossly), pupils equal and round, unable to assess Psychiatric: other (agitation on and off with somnolence) CBC and BMP: 04/01/19 04:51 04/05/19 05:21 ABG, PT/INR, D-dimer: PT/INR, D-dimer PT 13.2 Sec. (12.2-14.9) 03/31/19 13:29 INR 1.03 (0.87-1.13) 03/31/19 13:29 Abnormal lab findings: Abnormal Labs 03/31/19 03/31/19 03/31/19 13:29 13:29 13:29 MCHC 35 H RDW 12.9 L Plt Count Lymph % (Auto) 9.4 L [place] % (Auto) 12.4 H Lymph # 0.5 L Seg Neutrophils % 76.4 H Sodium 123 L Potassium 2.8 L* Chloride 73.7 L Carbon Dioxide BUN Creatinine Glucose 117 H Magnesium Total Bilirubin AST ALT Total Creatine Kinase 574 H Albumin HDL Cholesterol Amylase Urine WBC (Auto) Plasma/Serum Alcohol 03/31/19 03/31/19 03/31/19 13:29 13:29 17:20 MCHC RDW Plt Count Lymph % (Auto) [place] % (Auto) Lymph # Seg Neutrophils % Sodium Potassium Chloride Carbon Dioxide BUN Creatinine Glucose Magnesium 1.60 L Total Bilirubin AST ALT Total Creatine Kinase Albumin HDL Cholesterol Amylase Urine WBC (Auto) 7.0 H Plasma/Serum Alcohol 0.13 H 03/31/19 04/01/19 04/01/19 21:26 04:51 04:51 MCHC RDW 12.8 L Plt Count 103 L Lymph % (Auto) 9.4 L [place]ard % (Auto) 9.1 H Lymph # 0.5 L Seg Neutrophils % 78.6 H Sodium 134 L D Potassium 3.1 L Chloride 91.9 L Carbon Dioxide 31 H BUN Creatinine 0.5 L Glucose Magnesium Total Bilirubin 1.70 H AST 154 H ALT 73 H Total Creatine Kinase Albumin 3.8 L HDL Cholesterol 101 H Amylase 141 H Urine WBC (Auto) Plasma/Serum Alcohol 04/02/19 04/02/19 04/03/19 09:59 09:59 05:08 MCHC RDW Plt Count Lymph % (Auto) [place] % (Auto) Lymph # Seg Neutrophils % Sodium Potassium 2.9 L* Chloride Carbon Dioxide BUN 8 L Creatinine 0.5 L Glucose Magnesium 1.20 L 1.30 L Total Bilirubin AST ALT Total Creatine Kinase Albumin HDL Cholesterol Amylase Urine WBC (Auto) Plasma/Serum Alcohol 04/03/19 04/04/19 04/04/19 08:56 14:00 14:00 MCHC RDW Plt Count Lymph % (Auto) [place]ard % (Auto) Lymph # Seg Neutrophils % Sodium Potassium 3.0 L D Chloride 97.9 L Carbon Dioxide BUN Creatinine 0.5 L 0.5 L Glucose 112 H Magnesium 1.60 L Total Bilirubin AST ALT Total Creatine Kinase Albumin HDL Cholesterol Amylase Urine WBC (Auto) Plasma/Serum Alcohol
[2019-04-04] MEDS ORDERED: POTASSIUM CHLORIDE FEEDTUBE ONE (18:25)
[2019-04-04] MEDS: ASPIRIN PO SCH (22:21)
[2019-04-04] MEDS: LOVENOX SUB-Q SCH (22:22)
[2019-04-05] MEDS: ATIVAN IV PRN (02:26)
--- NOTE | 2019-04-05 05:38 | XRay Report ---
PROCEDURE: XR ABDOMEN 1V AP TECHNIQUE: Abdominal radiograph, single view. HISTORY: TUBE FEEDING PLACEMENT. COMPARISONS: 04/03/2019 . FINDINGS: Left upper quadrant enteric tube tip in the stomach. Nonobstructive bowel gas pattern. No evident pne umoperitoneum. IMPRESSION: Enteric tube tip is in the stomach. This document is electronically signed by Duncan Cool MD., April 05 2019 05:36:44 AM ET
[2019-04-05] MEDS: LIBRIUM PO SCH ×4 (05:57→22:33)
[2019-04-05] MEDS ORDERED: MAGNESIUM SULFATE 2GM/50ML 2 GM/50 ML BAG IV ONE (06:12)
[2019-04-05 06:51] LABS: BUN/Creatinine Ratio 23; Blood Urea Nitrogen 14 mg/dL (9-20); Calcium 9.3 mg/dL (8.4-10.2); Hemolysis Index 3
[2019-04-05] MEDS ORDERED: K-DUR PO ONE (07:00)
--- NOTE | 2019-04-05 08:18 | Progress Note ---
Assessment and Plan Alcohol intoxication with DTs Hyponatremia Hypokalemia Hypomagnesemia Dysarthria Toxic-metabolic encephalaopthy -Replace electrolytes as indicated -VTE prophylaxis -Blood pressure control and monitoring -Aspiration precautions -Alcohol counselling -Accuchecks with glycemic control, avoid hypoglycemia -Continue with CIWA protocol Subjective Date of service: 04/05/19 Principal diagnosis: CVA,S/p TPA DT's Interval history: Patient is seen today for: Alcohol intoxication with DTs; Hyponatremia; Hypokalemia; Hypomagnesemia; Dysarthria; Toxic-metabolic encephalopathy Seen and examined at bedside; 24hour events reviewed; nursing and respiratory care staff consulted; no adverse overnight events reported to me; No emesis or overt aspiration; in restraints; no overt hemodynamic decompensatio n Objective Vital Signs - 12hr 04/04/19 04/05/19 22:49 05:35 Temperature 100.9 F H 100.9 F H Pulse Rate 86 106 H Respiratory 24 24 Rate Blood Pressure 127/79 139/90 O2 Sat by Pulse 98 94 Oximetry Constitutional: appears uncomfortable, other (middle aged, thin HM, normocephalic and atraumatic with mildly increased resp effort at rest) Eyes: non-icteric ENT: oropharynx dry Neck: supple, no lymphadenopathy, no JVD, other (no thyromegaly) Effort: normal Ascultation: Bilateral: clear Percussion: Bilateral: not dull Cardiovascular: regular rate and rhythm, other (tacycardia, S1,S2, no murmurs) Gastrointestinal: normoactive bowel sounds, soft, non-tender, non-distended, other (No palpable HSM) Integumentary: normal Extremities: no cyanosis, no edema, pulses normal, no ischemia or petechiae Neurologic: non-focal exam (grossly), pupils equal and round, motor strength normal and, other (oriented x3, obeys one step commands) Psychiatric: mood appropriate, affect normal CBC and BMP: 04/01/19 04:51 04/05/19 05:21 ABG, PT/INR, D-dimer: PT/INR, D-dimer PT 13.2 Sec. (12.2-14.9) 03/31/19 13:29 INR 1.03 (0.87-1.13) 03/31/19 13:29 Abnormal lab findings: Abnormal Labs 03/31/19 03/31/19 03/31/19 13:29 13:29 13:29 MCHC 35 H RDW 12.9 L Plt Count Lymph % (Auto) 9.4 L [place] % (Auto) 12.4 H Lymph # 0.5 L Seg Neutrophils % 76.4 H Sodium 123 L Potassium 2.8 L* Chloride 73.7 L Carbon Dioxide BUN Creatinine Glucose 117 H Magnesium Total Bilirubin AST ALT Total Creatine Kinase 574 H Albumin HDL Cholesterol Amylase Urine WBC (Auto) Plasma/Serum Alcohol 03/31/19 03/31/19 03/31/19 13:29 13:29 17:20 MCHC RDW Plt Count Lymph % (Auto) [place] % (Auto) Lymph # Seg Neutrophils % Sodium Potassium Chloride Carbon Dioxide BUN Creatinine Glucose Magnesium 1.60 L Total Bilirubin AST ALT Total Creatine Kinase Albumin HDL Cholesterol Amylase Urine WBC (Auto) 7.0 H Plasma/Serum Alcohol 0.13 H 03/31/19 04/01/19 04/01/19 21:26 04:51 04:51 MCHC RDW 12.8 L Plt Count 103 L Lymph % (Auto) 9.4 L [place] % (Auto) 9.1 H Lymph # 0.5 L Seg Neutrophils % 78.6 H Sodium 134 L D Potassium 3.1 L Chloride 91.9 L Carbon Dioxide 31 H BUN Creatinine 0.5 L Glucose Magnesium Total Bilirubin 1.70 H AST 154 H ALT 73 H Total Creatine Kinase Albumin 3.8 L HDL Cholesterol 101 H Amylase 141 H Urine WBC (Auto) Plasma/Serum Alcohol 04/02/19 04/02/19 04/03/19 09:59 09:59 05:08 [facility] % (Auto) [place] % (Auto) Lymph # Seg Neutrophils % Sodium Potassium 2.9 L* Chloride Carbon Dioxide BUN 8 L Creatinine 0.5 L Glucose Magnesium 1.20 L 1.30 L Total Bilirubin AST ALT Total Creatine Kinase Albumin HDL Cholesterol Amylase Urine WBC (Auto) Plasma/Serum Alcohol 04/03/19 04/04/19 04/04/19 08:56 14:00 14:00 MCHC RDW Plt Count Lymph % (Auto) [place] % (Auto) Lymph # Seg Neutrophils % Sodium Potassium 3.0 L D Chloride 97.9 L Carbon Dioxide BUN Creatinine 0.5 L 0.5 L Glucose 112 H Magnesium 1.60 L Total Bilirubin AST ALT Total Creatine Kinase Albumin HDL Cholesterol Amylase Urine WBC (Auto) Plasma/Serum Alcohol 04/05/19 04/05/19 05:21 05:21 MCHC RDW Plt Count Lymph % (Auto) [place] % (Auto) Lymph # Seg Neutrophils % Sodium Potassium 3.1 L Chloride 97.0 L Carbon Dioxide BUN Creatinine 0.6 L Glucose 119 H Magnesium 1.40 L Total Bilirubin AST ALT Total Creatine Kinase Albumin HDL Cholesterol Amylase Urine WBC (Auto) Plasma/Serum Alcohol
[2019-04-05] MEDS ORDERED: POTASSIUM CHLORIDE FEEDTUBE NR (09:00)
[2019-04-05] MEDS: PEPCID PO SCH ×2 (09:23→22:29)
[2019-04-05] MEDS: SODIUM CHLORIDE FLUSH SYRINGE 10 ML IV SCH ×3 (10:05→22:31)
--- NOTE | 2019-04-05 12:42 | Progress Note ---
Assessment and Plan Assessment and plan: Acute encephalopathy Sec to DT's and severe ETOH dependence Delirium tremens Today CIWA scores came below 25 and to transfer to regular Medical floor Cont [facility] protocol EtOH dependence Patient to be counseled with a micronesian inerpretor when more alert and oriented Hypokalemia Supplemented Hypomagnesemia Supplemented multiple times Check Mg level again Hyponatremia Corrected Transaminitis Sec to ETOH Malnutrition of moderate degree Dietitian consulted DVT prophylaxis On Lovenox and GI prophylaxis History Interval history: No new issues Hospitalist Physical - Constitutional Vitals: Temp Pulse Resp BP Pulse Ox 100.9 F H 106 H 24 139/90 94 04/05/19 05:35 04/05/19 05:35 04/05/19 05:35 04/05/19 05:35 04/05/19 05:35 General appearance: Present: severe distress, well-nourished - EENT Eyes: Present: PERRL, EOM intact ENT: hearing intact, clear oral mucosa, dentition normal - Neck Neck: Present: supple, normal ROM - Respiratory Respiratory effort: normal Respiratory: bilateral: CTA - Cardiovascular Rhythm: regular Heart Sounds: Present: S1 & S2. Absent: gallop, rub - Extremities Extremities: no ischemia, No edema, Full ROM - Abdominal General gastrointestinal: soft, non-tender, non-distended, normal bowel sounds - Integumentary Integumentary: Present: clear, warm, dry - Neurologic Neurologic: CNII-XII intact, moves all extremities Results - Labs CBC & Chem 7: 04/01/19 04:51 04/05/19 05:21 Labs: Laboratory Last Values WBC 5.1 K/mm3 (4.5-11.0) 04/01/19 04:51 RBC 4.00 M/mm3 (3.65-5.03) 04/01/19 04:51 Hgb 12.4 gm/dl (11.8-15.2) 04/01/19 04:51 Hct 36.6 % (35.5-45.6) 04/01/19 04:51 MCV 91 fl (84-94) 04/01/19 04:51 MCH 31 pg (28-32) 04/01/19 04:51 MCHC 34 % (32-34) 04/01/19 04:51 RDW 12.8 % (13.2-15.2) L 04/01/19 04:51 Plt Count 103 K/mm3 (140-440) L 04/01/19 04:51 Lymph % (Auto) 9.4 % (13.4-35.0) L 04/01/19 04:51 [place] % (Auto) 9.1 % (0.0-7.3) H 04/01/19 04:51 Eos % (Auto) 2.3 % (0.0-4.3) 04/01/19 04:51 Baso % (Auto) 0.6 % (0.0-1.8) 04/01/19 04:51 Lymph # 0.5 K/mm3 (1.2-5.4) L 04/01/19 04:51 [place] # 0.5 K/mm3 (0.0-0.8) 04/01/19 04:51 Eos # 0.1 K/mm3 (0.0-0.4) 04/01/19 04:51 Baso # 0.0 K/mm3 (0.0-0.1) 04/01/19 04:51 Seg Neutrophils % 78.6 % (40.0-70.0) H 04/01/19 04:51 Seg Neutrophils # 4.0 K/mm3 (1.8-7.7) 04/01/19 04:51 PT 13.2 Sec. (12.2-14.9) 03/31/19 13:29 INR 1.03 (0.87-1.13) 03/31/19 13:29 APTT 29.3 Sec. (24.2-36.6) 03/31/19 13:29 15.5 Sec. (15.1-19.6) 03/31/19 13:29 Sodium 137 mmol/L (137-145) 04/05/19 05:21 Potassium 3.1 mmol/L (3.6-5.0) L 04/05/19 05:21 Chloride 97.0 mmol/L (98-107) L 04/05/19 05:21 Carbon Dioxide 26 mmol/L (22-30) 04/05/19 05:21 17 mmol/L 04/05/19 05:21 BUN 14 mg/dL (9-20) 04/05/19 05:21 0.6 mg/dL (0.8-1.5) L 04/05/19 05:21 Estimated GFR > 60 ml/min 04/05/19 05:21 23 % 04/05/19 05:21 Glucose 119 mg/dL (75-100) H 04/05/19 05:21 POC Glucose 100 (70-105) 03/31/19 13:55 5.1 % (4-6) 03/31/19 21:26 Calcium 9.3 mg/dL (8.4-10.2) 04/05/19 05:21 Phosphorus 4.00 mg/dL (2.5-4.5) 04/04/19 14:00 Magnesium 1.40 mg/dL (1.7-2.3) L 04/05/19 05:21 1.70 mg/dL (0.1-1.2) H 04/01/19 04:51 AST 154 units/L (5-40) H 04/01/19 04:51 ALT 73 units/L (7-56) H 04/01/19 04:51 101 units/L (35-129) 04/01/19 04:51 48.0 umol/L (25-60) 03/31/19 21:26 574 units/L (55-170) H 03/31/19 13:29 < 0.010 ng/mL (0.00-0.029) 03/31/19 13:29 6.6 g/dL (6.3-8.2) 04/01/19 04:51 3.8 g/dL (3.9-5) L 04/01/19 04:51 1.4 % 04/01/19 04:51 Triglycerides 63 mg/dL (2-149) 04/01/19 04:51 Cholesterol 199 mg/dL (50-199) 04/01/19 04:51 99 mg/dL (50-130) 04/01/19 04:51 101 mg/dL (40-59) H 04/01/19 04:51 1.97 % 04/01/19 04:51 Amylase 141 units/L (27-131) H 03/31/19 21:26 TSH 2.930 mlU/mL (0.270-4.200) 03/31/19 13:29 Free T4 1.13 ng/dL (0.76-1.46) 03/31/19 13:29 Yellow (Yellow) 03/31/19 17:20 Slightly-cloudy (Clear) 03/31/19 17:20 5.0 (5.0-7.0) 03/31/19 17:20 Ur Specific [place] 1.008 (1.003-1.030) 03/31/19 17:20 <15 mg/dl mg/dL (Negative) 03/31/19 17:20 Neg mg/dL (Negative) 03/31/19 17:20 Tr mg/dL (Negative) 03/31/19 17:20 Sm (Negative) 03/31/19 17:20 Neg (Negative) 03/31/19 17:20 Neg (Negative) 03/31/19 17:20 4.0 mg/dL (<2.0) 03/31/19 17:20 Ur Leukocyte Esterase Neg (Negative) 03/31/19 17:20 7.0 /HPF (0.0-6.0) H 03/31/19 17:20 4.0 /HPF (0.0-6.0) 03/31/19 17:20 Presumptive negative 03/31/19 17:20 Presumptive negative 03/31/19 17:20 Ur Barbiturates Screen Presumptive negative 03/31/19 17:20 Ur Phencyclidine Scrn Presumptive negative 03/31/19 17:20 Ur Amphetamines Screen Presumptive negative 03/31/19 17:20 U Benzodiazepines Scrn Presumptive negative 03/31/19 17:20 Presumptive negative 03/31/19 17:20 U Marijuana (THC) Screen Presumptive negative 03/31/19 17:20 Disclamer 03/31/19 17:20 Plasma/Serum Alcohol 0.13 % (0-0.07) H 03/31/19 13:29 Active Medications - Current Medications Current Medications: Generic Name Dose Route Start Last Admin Trade Name Freq PRN Reason Stop Dose Admin Acetaminophen 650 mg 03/31/19 20:39 04/01/19 21:33 Tylenol PO 650 mg Q4H PRN Administration Pain MILD(1-3)/Fever >100.5/BLOOM Lipase/Protease/Amylase 1 each 04/03/19 14:[address] 10,500 Unit FEEDTUBE PRN PRN For Clogged Feeding Tube Aspirin 325 mg 04/01/19 22:00 04/04/19 22:21 Aspirin PO 325 mg QDAY@2200 HERMILA Administration Atorvastatin Calcium 40 mg 03/31/19 22:00 04/04/19 22:21 Lipitor PO 40 mg QHS HERMILA Administration Chlordiazepoxide HCl 25 mg 04/02/19 10:00 04/05/19 09:23 Librium PO 25 mg Q6H HERMILA Administration Enoxaparin Sodium 40 mg 04/03/19 22:00 04/04/19 22:22 Lovenox SUB-Q 40 mg QDAY@2200 HERMILA Administration Famotidine 20 mg 04/01/19 10:00 04/05/19 09:23 Pepcid PO 20 mg BID HERMILA Administration Haloperidol Lactate 5 mg 03/31/19 20:33 04/04/19 05:35 Haldol IV 5 mg Q1H PRN Administration Unrespon. to mult. doses BZD's Lorazepam 2 mg 03/31/19 20:33 04/05/19 02:26 Ativan IV 2 mg Q1H PRN Administration CIWA-Ar 8-15 Lorazepam 4 mg 03/31/19 20:33 04/04/19 05:26 Ativan IV 4 mg Q1H PRN Administration CIWA-Ar 16-25 Lorazepam 4 mg 03/31/19 20:33 04/03/19 07:20 Ativan IV 4 mg Q15MIN PRN Administration CIWA-Ar >25 Morphine Sulfate 2 mg 03/31/19 20:39 04/02/19 06:35 Morphine IV 2 mg Q4H PRN Administration Pain, Moderate (4-6) Ondansetron HCl 4 mg 03/31/19 20:39 Zofran IV Q8H PRN Nausea And Vomiting Quetiapine Fumarate 150 mg 04/03/19 15:00 04/05/19 09:23 Seroquel PO 150 mg BID HERMILA Administration Simple Syrup 15 ml 04/03/19 14:35 Simple Syrup FEEDTUBE PRN PRN Hypoglycemia Simple Syrup 30 ml 04/03/19 14:35 Simple Syrup FEEDTUBE PRN PRN Hypoglycemia Sodium Bicarbonate 325 mg 04/03/19 14:35 Sodium Bicarbonate FEEDTUBE PRN PRN For Clogged Feeding Tube Sodium Chloride 10 ml 03/31/19 22:00 04/05/19 10:06 Sodium Chloride Flush Syringe 10 Ml IV 10 ml BID HERMILA Administration Sodium Chloride 10 ml 03/31/19 20:39 Sodium Chloride Flush Syringe 10 Ml IV PRN PRN LINE FLUSH Nutrition/Malnutrition Assess - Dietary Evaluation Nutrition/Malnutrition Findings: Nutrition Notes Start: 04/03/19 14:21 Freq: Status: Active Protocol: Document 04/03/19 14:21 RM (Rec: 04/03/19 14:37 RM [id number]) Nutrition Notes Need for Assessment generated from: MD Order Initial or Follow up Assessment Other Pertinent Diagnosis Dysarthria, UTI, ETOH intoxication w/DTs, toxic metabolic encephalopathy Current Diet No diet ordered Labs/Tests Reviewed Pertinent Medications Reviewed Height 5 ft 6 in Weight 63.8 kg [place] Body Weight (kg) 64.54 BMI 22.6 Subjective/Other Information Consulted for TF recommendation. Per rounds dobhoff planned to be placed. Motion Picture Set Worker received verbal order for TF consult. Burn Absent Trauma Absent #1 Nutrition Diagnosis Inadequate oral intake Etiology ETOH intoxication w/DTs As Evidenced by Signs and Symptoms no diet ordered, TF consult Is patient on ventilator? No Is Patient Ambulatory and/or Out of Bed No REE-([facility]-confined to bed) 1487.028 Calculation Used for Recommendations [facility] Additional Notes Protein Needs: 77-128g (1.2-2g /kg) Fluid Needs: 1 ml/kcal Nutrition Intervention Nutrition Support: Osmolite 1.5 at 50 ml/hr. Water flush of 150 mls q 4 hrs . Kcal 1,800 Protein (gm) 75 Fluid (mL) 914 Goal #1 TF tolerance Goal #2 Meet at least 80% of calorie and protein needs via TF Anticipated Discharge Needs: Unable to determine at this time Follow-Up By: 04/07/19 Additional Comments Follow for new TF
--- NOTE | 2019-04-05 14:34 | Magnetic Resonance Report ---
PROCEDURE: MR BRAIN WO CON TECHNIQUE: MRI of the brain. Images include sagittal T1, axial diffusion, axial ADC map, axial flair , axial T2, axial T1, axial T2 GRE, coronal FLAIR HISTORY: stroke COMPARISON: None FINDINGS: Study is mildly limited due to patient. Axial FLAIR images are particularly limited by motion artifac t.. There is no diffusion restriction to indicate acute ischemia/infarct. There is some moderate signal change in the white matter which likely represents moderate small vesse l ischemic disease. Ventricular size is appropriate for brain volume. There is no edema, mass effect or midline shift. There is no acute intracranial hemorrhage seen. IMPRESSION: Bilateral signal changes likely reflect chronic microvascular ischemic disease. No acute abnormality seen. This document is electronically signed by Edita Arceo MD., April 05 2019 02:33:04 PM ET
--- NOTE | 2019-04-05 14:37 | Magnetic Resonance Report ---
PROCEDURE: MR MRA/MRV HEAD WO CON TECHNIQUE: MR angiography of the head performed. Axial 3-D [id number] post processed angiographi c images were obtained. HISTORY: stroke COMPARISON: None FINDINGS: Anterior and posterior cerebral circulations are maintained. No intravascular filling defects seen. T here is no cerebral aneurysm seen. IMPRESSION: There is no significant abnormality identified. This document is electronically signed by Edita Arceo MD., April 05 2019 02:36:10 PM ET
[2019-04-05] MEDS: ASPIRIN PO SCH (22:28)
[2019-04-05] MEDS: LOVENOX SUB-Q SCH (22:28)
[2019-04-06] MEDS: MORPHINE IV PRN (00:49)
--- NOTE | 2019-04-06 00:54 | XRay Report ---
PROCEDURE: Abdomen. TECHNIQUE: Portable AP supine view. HISTORY: Dobbhoff tube placement. COMPARISONS: Abdomen done earlier today. FINDINGS: The bowel gas pattern is nonspecific. There are no definite signs of obstruction. A Dobbhoff feeding tube terminates near the gastric antrum. The soft tissues are unremarkable. The regional skeleton luca ears intact. IMPRESSION: Dobbhoff tube in stomach. This document is electronically signed by Duncan Duque MD., April 06 2019 12:51:48 AM ET
[2019-04-06] MEDS: LIBRIUM PO SCH ×4 (04:48→22:48)
--- NOTE | 2019-04-06 07:43 | XRay Report ---
PROCEDURE: XR ABDOMEN 1V AP TECHNIQUE: Abdominal radiograph, single view. HISTORY: NGT placement COMPARISONS: 04/05/2019 . FINDINGS: Enteric tube projects over the stomach, unchanged. No pneumoperitoneum. Nonobstructive bowel gas masoud olu. IMPRESSION: Unchanged nasogastric tube within the stomach. This document is electronically signed by Duncan Cool MD., April 06 2019 07:40:40 AM ET
[2019-04-06] MEDS: ATIVAN IV PRN ×2 (08:43→19:39)
--- NOTE | 2019-04-06 09:24 | Cat Scan Report ---
PROCEDURE: CT HEAD/BRAIN WO CON TECHNIQUE: A noncontrast CT of the head was performed. HISTORY: fall, headache COMPARISON: 03/31/2019 FINDINGS: There is unchanged mild cerebral atrophy. There is moderate ischemic change in the white matter. There is no acute intracranial hemorrhage. There is no brain edema, mass effect or midline shift. Ventricular size is appropriate for brain volume. There is no abnormal extra-axial fluid collections. There is no skull fracture seen. The visualized paranasal sinuses are clear. IMPRESSION: There is no acute intracranial abnormality seen. This document is electronically signed by Edita Arceo MD., April 06 2019 09:22:57 AM ET
--- NOTE | 2019-04-06 09:42 | Progress Note ---
Assessment and Plan Alcohol intoxication with DTs Hyponatremia Hypokalemia Hypomagnesemia Dysarthria Toxic-metabolic encephalaopthy -Replace electrolytes as indicated -VTE prophylaxis -Blood pressure control and monitoring -Aspiration precautions -Alcohol counselling -Accuchecks with glycemic control, avoid hypoglycemia -Continue with CIWA protocol Subjective Date of service: 04/06/19 Principal diagnosis: CVA,S/p TPA DT's Interval history: Patient is seen today for: Alcohol intoxication with DTs; Hyponatremia; Hypokalemia; Hypomagnesemia; Dysarthria; Toxic-metabolic encephalopathy Seen and examined at bedside; 24hour events reviewed; nursing and respiratory care staff consulted; no adverse overnight events reported to me; No emesis or overt aspiration; in restraints; no overt hemodynamic decompensatio n More awake and alert, speaks Hungarian only Objective Vital Signs - 12hr 04/06/19 00:10 Temperature 98.9 F Pulse Rate 93 H Respiratory 18 Rate Blood Pressure 114/83 O2 Sat by Pulse 96 Oximetry Constitutional: no acute distress, asleep, other (middle aged, thin HM, normocephalic and atraumatic with normal resp effort at rest) Eyes: non-icteric ENT: oropharynx dry Neck: supple, no lymphadenopathy, no JVD, other (no thyromegaly) Effort: normal Ascultation: Bilateral: clear Percussion: Bilateral: not dull Cardiovascular: regular rate and rhythm, other (tacycardia, S1,S2, no murmurs) Gastrointestinal: normoactive bowel sounds, soft, non-tender, non-distended, other (No palpable HSM) Integumentary: normal Extremities: no cyanosis, no edema, pulses normal, no ischemia or petechiae Neurologic: non-focal exam (grossly), pupils equal and round, motor strength normal and, other (oriented x3, obeys one step commands) Psychiatric: mood appropriate, affect normal CBC and BMP: 04/01/19 04:51 04/08/19 05:07 ABG, PT/INR, D-dimer: PT/INR, D-dimer PT 13.2 Sec. (12.2-14.9) 03/31/19 13:29 INR 1.03 (0.87-1.13) 03/31/19 13:29 Abnormal lab findings: Abnormal Labs 0603/31/19 03/31/19 13:29 13:29 13:29 MCHC 35 H RDW 12.9 L Plt Count Lymph % (Auto) 9.4 L [place] % (Auto) 12.4 H Lymph # 0.5 L Seg Neutrophils % 76.4 H Sodium 123 L Potassium 2.8 L* Chloride 73.7 L Carbon Dioxide BUN Creatinine Glucose 117 H Magnesium Total Bilirubin AST ALT Total Creatine Kinase 574 H Albumin HDL Cholesterol Amylase Urine WBC (Auto) Plasma/Serum Alcohol 03/31/19 03/31/19 03/31/19 13:29 13:29 17:20 MCHC RDW Plt Count Lymph % (Auto) [place] % (Auto) Lymph # Seg Neutrophils % Sodium Potassium Chloride Carbon Dioxide BUN Creatinine Glucose Magnesium 1.60 L Total Bilirubin AST ALT Total Creatine Kinase Albumin HDL Cholesterol Amylase Urine WBC (Auto) 7.0 H Plasma/Serum Alcohol 0.13 H 03/31/19 04/01/19 04/01/19 21:26 04:51 04:51 MCHC RDW 12.8 L Plt Count 103 L Lymph % (Auto) 9.4 L [place] % (Auto) 9.1 H Lymph # 0.5 L Seg Neutrophils % 78.6 H Sodium 134 L D Potassium 3.1 L Chloride 91.9 L Carbon Dioxide 31 H BUN Creatinine 0.5 L Glucose Magnesium Total Bilirubin 1.70 H AST 154 H ALT 73 H Total Creatine Kinase Albumin 3.8 L HDL Cholesterol 101 H Amylase 141 H Urine WBC (Auto) Plasma/Serum Alcohol 04/02/19 04/02/19 04/03/19 09:59 09:59 05:08 [facility] RDW Plt Count Lymph % (Auto) [place] % (Auto) Lymph # Seg Neutrophils % Sodium Potassium 2.9 L* Chloride Carbon Dioxide BUN 8 L Creatinine 0.5 L Glucose Magnesium 1.20 L 1.30 L Total Bilirubin AST ALT Total Creatine Kinase Albumin HDL Cholesterol Amylase Urine WBC (Auto) Plasma/Serum Alcohol 04/03/19 04/04/19 04/04/19 08:56 14:00 14:00 [facility] RDW Plt Count Lymph % (Auto) [place] % (Auto) Lymph # Seg Neutrophils % Sodium Potassium 3.0 L D Chloride 97.9 L Carbon Dioxide BUN Creatinine 0.5 L 0.5 L Glucose 112 H Magnesium 1.60 L Total Bilirubin AST ALT Total Creatine Kinase Albumin HDL Cholesterol Amylase Urine WBC (Auto) Plasma/Serum Alcohol 04/05/19 04/05/19 05:21 05:21 MCHC RDW Plt Count Lymph % (Auto) [place] % (Auto) Lymph # Seg Neutrophils % Sodium Potassium 3.1 L Chloride 97.0 L Carbon Dioxide BUN Creatinine 0.6 L Glucose 119 H Magnesium 1.40 L Total Bilirubin AST ALT Total Creatine Kinase Albumin HDL Cholesterol Amylase Urine WBC (Auto) Plasma/Serum Alcohol
[2019-04-06] MEDS: PEPCID PO SCH ×2 (11:24→21:17)
[2019-04-06] MEDS: SODIUM CHLORIDE FLUSH SYRINGE 10 ML IV SCH ×2 (11:26→21:16)
--- NOTE | 2019-04-06 17:52 | Progress Note ---
Assessment and Plan Assessment and plan: Acute encephalopathy Sec to DT's and severe ETOH dependence Delirium tremens Cont CIWA protocol and supportive care EtOH dependence Patient to be counseled Hypokalemia Replete K Hypomagnesemia Supplement as needed Hyponatremia Corrected Transaminitis Sec to ETOH Malnutrition of moderate degree Dietitian consulted DVT prophylaxis On Lovenox and GI prophylaxis History Interval history: No new issues. Extremely agitated, requiring restraints Hospitalist Physical - Constitutional Vitals: Temp Pulse Resp BP Pulse Ox 98.4 F 79 16 118/83 96 04/06/19 17:16 04/06/19 17:16 04/06/19 17:16 04/06/19 17:16 04/06/19 17:16 General appearance: Present: severe distress, well-nourished - EENT Eyes: Present: PERRL, EOM intact ENT: hearing intact, clear oral mucosa, dentition normal - Neck Neck: Present: supple, normal ROM - Respiratory Respiratory effort: normal Respiratory: bilateral: CTA - Cardiovascular Rhythm: regular Heart Sounds: Present: S1 & S2. Absent: gallop, rub - Extremities Extremities: no ischemia, No edema, Full ROM - Abdominal General gastrointestinal: soft, non-tender, non-distended, normal bowel sounds - Integumentary Integumentary: Present: clear, warm, dry - Neurologic Neurologic: CNII-XII intact, moves all extremities Results - Labs CBC & Chem 7: 04/01/19 04:51 04/05/19 05:21 Labs: Laboratory Last Values WBC 5.1 K/mm3 (4.5-11.0) 04/01/19 04:51 RBC 4.00 M/mm3 (3.65-5.03) 04/01/19 04:51 Hgb 12.4 gm/dl (11.8-15.2) 04/01/19 04:51 Hct 36.6 % (35.5-45.6) 04/01/19 04:51 MCV 91 fl (84-94) 04/01/19 04:51 MCH 31 pg (28-32) 04/01/19 04:51 MCHC 34 % (32-34) 04/01/19 04:51 RDW 12.8 % (13.2-15.2) L 04/01/19 04:51 Plt Count 103 K/mm3 (140-440) L 04/01/19 04:51 Lymph % (Auto) 9.4 % (13.4-35.0) L 04/01/19 04:51 [place] % (Auto) 9.1 % (0.0-7.3) H 04/01/19 04:51 Eos % (Auto) 2.3 % (0.0-4.3) 04/01/19 04:51 Baso % (Auto) 0.6 % (0.0-1.8) 04/01/19 04:51 Lymph # 0.5 K/mm3 (1.2-5.4) L 04/01/19 04:51 [place] # 0.5 K/mm3 (0.0-0.8) 04/01/19 04:51 Eos # 0.1 K/mm3 (0.0-0.4) 04/01/19 04:51 Baso # 0.0 K/mm3 (0.0-0.1) 04/01/19 04:51 Seg Neutrophils % 78.6 % (40.0-70.0) H 04/01/19 04:51 Seg Neutrophils # 4.0 K/mm3 (1.8-7.7) 04/01/19 04:51 PT 13.2 Sec. (12.2-14.9) 03/31/19 13:29 INR 1.03 (0.87-1.13) 03/31/19 13:29 APTT 29.3 Sec. (24.2-36.6) 03/31/19 13:29 15.5 Sec. (15.1-19.6) 03/31/19 13:29 Sodium 137 mmol/L (137-145) 04/05/19 05:21 Potassium 3.1 mmol/L (3.6-5.0) L 04/05/19 05:21 Chloride 97.0 mmol/L (98-107) L 04/05/19 05:21 Carbon Dioxide 26 mmol/L (22-30) 04/05/19 05:21 17 mmol/L 04/05/19 05:21 BUN 14 mg/dL (9-20) 04/05/19 05:21 0.6 mg/dL (0.8-1.5) L 04/05/19 05:21 Estimated GFR > 60 ml/min 04/05/19 05:21 23 % 04/05/19 05:21 Glucose 119 mg/dL (75-100) H 04/05/19 05:21 POC Glucose 100 (70-105) 03/31/19 13:55 5.1 % (4-6) 03/31/19 21:26 Calcium 9.3 mg/dL (8.4-10.2) 04/05/19 05:21 Phosphorus 4.00 mg/dL (2.5-4.5) 04/04/19 14:00 Magnesium 1.40 mg/dL (1.7-2.3) L 04/05/19 05:21 1.70 mg/dL (0.1-1.2) H 04/01/19 04:51 AST 154 units/L (5-40) H 04/01/19 04:51 ALT 73 units/L (7-56) H 04/01/19 04:51 101 units/L (35-129) 04/01/19 04:51 48.0 umol/L (25-60) 03/31/19 21:26 574 units/L (55-170) H 03/31/19 13:29 < 0.010 ng/mL (0.00-0.029) 03/31/19 13:29 6.6 g/dL (6.3-8.2) 04/01/19 04:51 3.8 g/dL (3.9-5) L 04/01/19 04:51 1.4 % 04/01/19 04:51 Triglycerides 63 mg/dL (2-149) 04/01/19 04:51 Cholesterol 199 mg/dL (50-199) 04/01/19 04:51 99 mg/dL (50-130) 04/01/19 04:51 101 mg/dL (40-59) H 04/01/19 04:51 1.97 % 04/01/19 04:51 Amylase 141 units/L (27-131) H 03/31/19 21:26 TSH 2.930 mlU/mL (0.270-4.200) 03/31/19 13:29 Free T4 1.13 ng/dL (0.76-1.46) 03/31/19 13:29 Yellow (Yellow) 03/31/19 17:20 Slightly-cloudy (Clear) 03/31/19 17:20 5.0 (5.0-7.0) 03/31/19 17:20 Ur Specific [place] 1.008 (1.003-1.030) 03/31/19 17:20 <15 mg/dl mg/dL (Negative) 03/31/19 17:20 Neg mg/dL (Negative) 03/31/19 17:20 Tr mg/dL (Negative) 03/31/19 17:20 Sm (Negative) 03/31/19 17:20 Neg (Negative) 03/31/19 17:20 Neg (Negative) 03/31/19 17:20 4.0 mg/dL (<2.0) 03/31/19 17:20 Ur Leukocyte Esterase Neg (Negative) 03/31/19 17:20 7.0 /HPF (0.0-6.0) H 03/31/19 17:20 4.0 /HPF (0.0-6.0) 03/31/19 17:20 Presumptive negative 03/31/19 17:20 Presumptive negative 03/31/19 17:20 Ur Barbiturates Screen Presumptive negative 03/31/19 17:20 Ur Phencyclidine Scrn Presumptive negative 03/31/19 17:20 Ur Amphetamines Screen Presumptive negative 03/31/19 17:20 U Benzodiazepines Scrn Presumptive negative 03/31/19 17:20 Presumptive negative 03/31/19 17:20 U Marijuana (THC) Screen Presumptive negative 03/31/19 17:20 Disclamer 03/31/19 17:20 Plasma/Serum Alcohol 0.13 % (0-0.07) H 03/31/19 13:29 Active Medications - Current Medications Current Medications: Generic Name Dose Route Start Last Admin Trade Name Freq PRN Reason Stop Dose Admin Acetaminophen 650 mg 03/31/19 20:39 04/01/19 21:33 Tylenol PO 650 mg Q4H PRN Administration Pain MILD(1-3)/Fever >100.5/BLOOM Lipase/Protease/Amylase 1 each 04/03/19 14:[address] 10,500 Unit FEEDTUBE PRN PRN For Clogged Feeding Tube Aspirin 325 mg 04/01/19 22:00 04/05/19 22:28 Aspirin PO 325 mg QDAY@2200 HERMILA Administration Atorvastatin Calcium 40 mg 03/31/19 22:00 04/05/19 22:28 Lipitor PO 40 mg QHS HERMILA Administration Chlordiazepoxide HCl 25 mg 04/02/19 10:00 04/06/19 17:26 Librium PO 25 mg Q6H HERMILA Administration Enoxaparin Sodium 40 mg 04/03/19 22:00 04/05/19 22:28 Lovenox SUB-Q 40 mg QDAY@2200 HERMILA Administration Famotidine 20 mg 04/01/19 10:00 04/06/19 11:24 Pepcid PO 20 mg BID HERMILA Administration Haloperidol Lactate 5 mg 03/31/19 20:33 04/04/19 05:35 Haldol IV 5 mg Q1H PRN Administration Unrespon. to mult. doses BZD's Lorazepam 2 mg 03/31/19 20:33 04/06/19 08:43 Ativan IV 2 mg Q1H PRN Administration CIWA-Ar 8-15 Lorazepam 4 mg 03/31/19 20:33 04/04/19 05:26 Ativan IV 4 mg Q1H PRN Administration CIWA-Ar 16-25 Lorazepam 4 mg 03/31/19 20:33 04/03/19 07:20 Ativan IV 4 mg Q15MIN PRN Administration CIWA-Ar >25 Morphine Sulfate 2 mg 03/31/19 20:39 04/06/19 00:49 Morphine IV 2 mg Q4H PRN Administration Pain, Moderate (4-6) Ondansetron HCl 4 mg 03/31/19 20:39 Zofran IV Q8H PRN Nausea And Vomiting Quetiapine Fumarate 150 mg 04/03/19 15:00 04/06/19 11:24 Seroquel PO 150 mg BID HERMILA Administration Simple Syrup 15 ml 04/03/19 14:35 Simple Syrup FEEDTUBE PRN PRN Hypoglycemia Simple Syrup 30 ml 04/03/19 14:35 Simple Syrup FEEDTUBE PRN PRN Hypoglycemia Sodium Bicarbonate 325 mg 04/03/19 14:35 Sodium Bicarbonate FEEDTUBE PRN PRN For Clogged Feeding Tube Sodium Chloride 10 ml 03/31/19 22:00 04/06/19 11:26 Sodium Chloride Flush Syringe 10 Ml IV 10 ml BID HERMILA Administration Sodium Chloride 10 ml 03/31/19 20:39 Sodium Chloride Flush Syringe 10 Ml IV PRN PRN LINE FLUSH Nutrition/Malnutrition Assess - Dietary Evaluation Nutrition/Malnutrition Findings: Nutrition Notes Start: 04/03/19 14:21 Freq: Status: Active Protocol: Document 04/03/19 14:21 RM (Rec: 04/03/19 14:37 RM [id number]) Nutrition Notes Need for Assessment generated from: MD Order Initial or Follow up Assessment Other Pertinent Diagnosis Dysarthria, UTI, ETOH intoxication w/DTs, toxic metabolic encephalopathy Current Diet No diet ordered Labs/Tests Reviewed Pertinent Medications Reviewed Height 5 ft 6 in Weight 63.8 kg [place] Body Weight (kg) 64.54 BMI 22.6 Subjective/Other Information Consulted for TF recommendation. Per rounds dobhoff planned to be placed. 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 Burn Absent Trauma Absent #1 Nutrition Diagnosis Inadequate oral intake Etiology ETOH intoxication w/DTs As Evidenced by Signs and Symptoms no diet ordered, TF consult Is patient on ventilator? No Is Patient Ambulatory and/or Out of Bed No REE-([facility]-confined to bed) 1727.028 Calculation Used for Recommendations [facility] Additional Notes Protein Needs: 77-128g (1.2-2g /kg) Fluid Needs: 1 ml/kcal Nutrition Intervention Nutrition Support: Osmolite 1.5 at 50 ml/hr. Water flush of 150 mls q 4 hrs . Kcal 1,800 Protein (gm) 75 Fluid (mL) 914 Goal #1 TF tolerance Goal #2 Meet at least 80% of calorie and protein needs via TF Anticipated Discharge Needs: Unable to determine at this time Follow-Up By: 04/07/19 Additional Comments Follow for new TF
[2019-04-06] MEDS: LOVENOX SUB-Q SCH (21:16)
[2019-04-06] MEDS: ASPIRIN PO SCH (22:48)
[2019-04-07] MEDS: ATIVAN IV PRN ×2 (01:52→10:16)
[2019-04-07] MEDS: LIBRIUM PO SCH ×4 (03:44→22:03)
--- NOTE | 2019-04-07 09:09 | Progress Note ---
Assessment and Plan Alcohol intoxication with DTs Hyponatremia Hypokalemia Hypomagnesemia Dysarthria Toxic-metabolic encephalopathy - continue scheduled librium, CIWA protocol - continue seroquel with slow taper - continue tube feeds as tolerated - Replace electrolytes as indicated - VTE prophylaxis - Blood pressure control and monitoring - continue aspiration precautions - Alcohol counseling once he is able to actively participate in the discussion - continue accuchecks with glycemic control per SSI (avoid hypoglycemia) - Monitor for bleeding. ... re-evaluate prn at this point Subjective Date of service: 04/07/19 Principal diagnosis: Alcohol withdrawal with DTs; Dysarthria; Toxic-metabolic encephalopathy Interval history: Patient is seen today for: Alcohol intoxication with DTs; Hyponatremia; Hypokalemia; Hypomagnesemia; Dysarthria; Toxic-metabolic encephalopathy Seen and examined at bedside; 24hour events reviewed; nursing and respiratory care staff consulted; no adverse overnight events reported to me; sedated and resting peacefully in bed; family visiting Objective Vital Signs - 12hr 04/06/19 04/07/19 22:55 05:30 Temperature 98.3 F 98.7 F Pulse Rate 75 75 Respiratory 17 18 Rate Blood Pressure 144/93 Blood Pressure 131/88 [Right] O2 Sat by Pulse 97 96 Oximetry Constitutional: appears uncomfortable, other (middle aged, thin HM, normocephalic and atraumatic with mildly increased resp effort at rest) Eyes: non-icteric ENT: oropharynx moist Neck: supple, no lymphadenopathy, no JVD, other (no thyromegaly) Effort: normal Ascultation: Bilateral: clear Percussion: Bilateral: not dull Cardiovascular: regular rate and rhythm, other (tacycardia, S1,S2, no murmurs) Gastrointestinal: normoactive bowel sounds, soft, non-tender, non-distended, other (No palpable HSM) Integumentary: normal Extremities: no cyanosis, no edema, pulses normal, no ischemia or petechiae Neurologic: non-focal exam (grossly), pupils equal and round, unable to assess Psychiatric: other (agitation on and off with somnolence) CBC and BMP: 04/01/19 04:51 04/08/19 05:07 ABG, PT/INR, D-dimer: PT/INR, D-dimer PT 13.2 Sec. (12.2-14.9) 03/31/19 13:29 INR 1.03 (0.87-1.13) 03/31/19 13:29 Abnormal lab findings: Abnormal Labs 03/31/19 03/31/19 03/31/19 13:29 13:29 13:29 MCHC 35 H RDW 12.9 L Plt Count Lymph % (Auto) 9.4 L [place] % (Auto) 12.4 H Lymph # 0.5 L Seg Neutrophils % 76.4 H Sodium 123 L Potassium 2.8 L* Chloride 73.7 L Carbon Dioxide BUN Creatinine Glucose 117 H Magnesium Total Bilirubin AST ALT Total Creatine Kinase 574 H Albumin HDL Cholesterol Amylase Urine WBC (Auto) Plasma/Serum Alcohol 03/31/19 03/31/19 03/31/19 13:29 13:29 17:20 MCHC RDW Plt Count Lymph % (Auto) [place] % (Auto) Lymph # Seg Neutrophils % Sodium Potassium Chloride Carbon Dioxide BUN Creatinine Glucose Magnesium 1.60 L Total Bilirubin AST ALT Total Creatine Kinase Albumin HDL Cholesterol Amylase Urine WBC (Auto) 7.0 H Plasma/Serum Alcohol 0.13 H 03/31/19 04/01/19 04/01/19 21:26 04:51 04:51 MCHC RDW 12.8 L Plt Count 103 L Lymph % (Auto) 9.4 L [place] % (Auto) 9.1 H Lymph # 0.5 L Seg Neutrophils % 78.6 H Sodium 134 L D Potassium 3.1 L Chloride 91.9 L Carbon Dioxide 31 H BUN Creatinine 0.5 L Glucose Magnesium Total Bilirubin 1.70 H AST 154 H ALT 73 H Total Creatine Kinase Albumin 3.8 L HDL Cholesterol 101 H Amylase 141 H Urine WBC (Auto) Plasma/Serum Alcohol 04/02/19 04/02/19 04/03/19 09:59 09:59 05:08 MCHC RDW Plt Count Lymph % (Auto) [place] % (Auto) Lymph # Seg Neutrophils % Sodium Potassium 2.9 L* Chloride Carbon Dioxide BUN 8 L Creatinine 0.5 L Glucose Magnesium 1.20 L 1.30 L Total Bilirubin AST ALT Total Creatine Kinase Albumin HDL Cholesterol Amylase Urine WBC (Auto) Plasma/Serum Alcohol 04/03/19 04/04/19 04/04/19 08:56 14:00 14:00 MCHC RDW Plt Count Lymph % (Auto) [place] % (Auto) Lymph # Seg Neutrophils % Sodium Potassium 3.0 L D Chloride 97.9 L Carbon Dioxide BUN Creatinine 0.5 L 0.5 L Glucose 112 H Magnesium 1.60 L Total Bilirubin AST ALT Total Creatine Kinase Albumin HDL Cholesterol Amylase Urine WBC (Auto) Plasma/Serum Alcohol 04/05/19 04/05/19 05:21 05:21 MCHC RDW Plt Count Lymph % (Auto) [place] % (Auto) Lymph # Seg Neutrophils % Sodium Potassium 3.1 L Chloride 97.0 L Carbon Dioxide BUN Creatinine 0.6 L Glucose 119 H Magnesium 1.40 L Total Bilirubin AST ALT Total Creatine Kinase Albumin HDL Cholesterol Amylase Urine WBC (Auto) Plasma/Serum Alcohol Allied health notes reviewed: nursing
[2019-04-07] MEDS: PEPCID PO SCH ×2 (10:19→21:08)
[2019-04-07] MEDS: SODIUM CHLORIDE FLUSH SYRINGE 10 ML IV SCH ×2 (10:22→21:00)
--- NOTE | 2019-04-07 14:46 | Progress Note ---
Assessment and Plan Assessment and plan: Acute encephalopathy Sec to DT's and severe ETOH dependence Still confused Delirium tremens Patient has high CIWA score and still getting benzos Cont CIWA protocol EtOH dependence Patient to be counseled with a vietnamese inerpretor when more alert and oriented He is mumbling Hypokalemia Supplemented Hypomagnesemia Supplemented multiple times Check Mg level again Hyponatremia Corrected Transaminitis Sec to ETOH Malnutrition of moderate degree Dietitian consulted DVT prophylaxis On Lovenox and GI prophylaxis disposition; continue inpatient care. History Interval history: Patient was seen and evaluated this morning, patient was confused. Hospitalist Physical - Physical exam Narrative exam: Not in cardiopulmonary distress. The patient appeared well nourished and normally developed. Vital signs as documented. Head exam is unremarkable. ENT; NG tube in place No scleral icterus . Neck is without jugular venous distension, thyromegaly, or carotid bruits. Lungs are clear to auscultation. Cardiac exam reveals regular rate and Rhythm. First and second heart sounds normal. No murmurs, rubs or gallops. Abdominal exam reveals normal bowel sounds, no masses, no organomegaly and no aortic enlargement. Extremities are nonedematous and both femoral and pedal pulses are normal. PROVIDER RELATIONS CONSULTANT: patiennt is confused - Constitutional Vitals: Temp Pulse Resp BP Pulse Ox 98.0 F 96 H 20 93/70 95 04/07/19 12:55 04/07/19 12:55 04/07/19 12:55 04/07/19 12:55 04/07/19 12:55 General appearance: Present: severe distress, well-nourished Results - Labs CBC & Chem 7: 04/01/19 04:51 04/05/19 05:21 Labs: Laboratory Last Values WBC 5.1 K/mm3 (4.5-11.0) 04/01/19 04:51 RBC 4.00 M/mm3 (3.65-5.03) 04/01/19 04:51 Hgb 12.4 gm/dl (11.8-15.2) 04/01/19 04:51 Hct 36.6 % (35.5-45.6) 04/01/19 04:51 MCV 91 fl (84-94) 04/01/19 04:51 MCH 31 pg (28-32) 04/01/19 04:51 MCHC 34 % (32-34) 04/01/19 04:51 RDW 12.8 % (13.2-15.2) L 04/01/19 04:51 Plt Count 103 K/mm3 (140-440) L 04/01/19 04:51 Lymph % (Auto) 9.4 % (13.4-35.0) L 04/01/19 04:51 [place] % (Auto) 9.1 % (0.0-7.3) H 04/01/19 04:51 Eos % (Auto) 2.3 % (0.0-4.3) 04/01/19 04:51 Baso % (Auto) 0.6 % (0.0-1.8) 04/01/19 04:51 Lymph # 0.5 K/mm3 (1.2-5.4) L 04/01/19 04:51 [place] # 0.5 K/mm3 (0.0-0.8) 04/01/19 04:51 Eos # 0.1 K/mm3 (0.0-0.4) 04/01/19 04:51 Baso # 0.0 K/mm3 (0.0-0.1) 04/01/19 04:51 Seg Neutrophils % 78.6 % (40.0-70.0) H 04/01/19 04:51 Seg Neutrophils # 4.0 K/mm3 (1.8-7.7) 04/01/19 04:51 PT 13.2 Sec. (12.2-14.9) 03/31/19 13:29 INR 1.03 (0.87-1.13) 03/31/19 13:29 APTT 29.3 Sec. (24.2-36.6) 03/31/19 13:29 15.5 Sec. (15.1-19.6) 03/31/19 13:29 Sodium 137 mmol/L (137-145) 04/05/19 05:21 Potassium 3.1 mmol/L (3.6-5.0) L 04/05/19 05:21 Chloride 97.0 mmol/L (98-107) L 04/05/19 05:21 Carbon Dioxide 26 mmol/L (22-30) 04/05/19 05:21 17 mmol/L 04/05/19 05:21 BUN 14 mg/dL (9-20) 04/05/19 05:21 0.6 mg/dL (0.8-1.5) L 04/05/19 05:21 Estimated GFR > 60 ml/min 04/05/19 05:21 23 % 04/05/19 05:21 Glucose 119 mg/dL (75-100) H 04/05/19 05:21 POC Glucose 100 (70-105) 03/31/19 13:55 5.1 % (4-6) 03/31/19 21:26 Calcium 9.3 mg/dL (8.4-10.2) 04/05/19 05:21 Phosphorus 4.00 mg/dL (2.5-4.5) 04/04/19 14:00 Magnesium 1.40 mg/dL (1.7-2.3) L 04/05/19 05:21 1.70 mg/dL (0.1-1.2) H 04/01/19 04:51 AST 154 units/L (5-40) H 04/01/19 04:51 ALT 73 units/L (7-56) H 04/01/19 04:51 101 units/L (35-129) 04/01/19 04:51 48.0 umol/L (25-60) 03/31/19 21:26 574 units/L (55-170) H 03/31/19 13:29 < 0.010 ng/mL (0.00-0.029) 03/31/19 13:29 6.6 g/dL (6.3-8.2) 04/01/19 04:51 3.8 g/dL (3.9-5) L 04/01/19 04:51 1.4 % 04/01/19 04:51 Triglycerides 63 mg/dL (2-149) 04/01/19 04:51 Cholesterol 199 mg/dL (50-199) 04/01/19 04:51 99 mg/dL (50-130) 04/01/19 04:51 101 mg/dL (40-59) H 04/01/19 04:51 1.97 % 04/01/19 04:51 Amylase 141 units/L (27-131) H 03/31/19 21:26 TSH 2.930 mlU/mL (0.270-4.200) 03/31/19 13:29 Free T4 1.13 ng/dL (0.76-1.46) 03/31/19 13:29 Yellow (Yellow) 03/31/19 17:20 Slightly-cloudy (Clear) 03/31/19 17:20 5.0 (5.0-7.0) 03/31/19 17:20 Ur Specific [place] 1.008 (1.003-1.030) 03/31/19 17:20 <15 mg/dl mg/dL (Negative) 03/31/19 17:20 Neg mg/dL (Negative) 03/31/19 17:20 Tr mg/dL (Negative) 03/31/19 17:20 Sm (Negative) 03/31/19 17:20 Neg (Negative) 03/31/19 17:20 Neg (Negative) 03/31/19 17:20 4.0 mg/dL (<2.0) 03/31/19 17:20 Ur Leukocyte Esterase Neg (Negative) 03/31/19 17:20 7.0 /HPF (0.0-6.0) H 03/31/19 17:20 4.0 /HPF (0.0-6.0) 03/31/19 17:20 Presumptive negative 03/31/19 17:20 Presumptive negative 03/31/19 17:20 Ur Barbiturates Screen Presumptive negative 03/31/19 17:20 Ur Phencyclidine Scrn Presumptive negative 03/31/19 17:20 Ur Amphetamines Screen Presumptive negative 03/31/19 17:20 U Benzodiazepines Scrn Presumptive negative 03/31/19 17:20 Presumptive negative 03/31/19 17:20 U Marijuana (THC) Screen Presumptive negative 03/31/19 17:20 Disclamer 03/31/19 17:20 Plasma/Serum Alcohol 0.13 % (0-0.07) H 03/31/19 13:29 Active Medications - Current Medications Current Medications: Generic Name Dose Route Start Last Admin Trade Name Freq PRN Reason Stop Dose Admin Acetaminophen 650 mg 03/31/19 20:39 04/01/19 21:33 Tylenol PO 650 mg Q4H PRN Administration Pain MILD(1-3)/Fever >100.5/BLOOM Lipase/Protease/Amylase 1 each 04/03/19 14:35 Pancreazar [place] 10,500 Unit FEEDTUBE PRN PRN For Clogged Feeding Tube Aspirin 325 mg 04/01/19 22:00 04/06/19 22:48 Aspirin PO 325 mg QDAY@2200 HERMILA Administration Atorvastatin Calcium 40 mg 03/31/19 22:00 04/06/19 22:48 Lipitor PO 40 mg QHS HERMILA Administration Chlordiazepoxide HCl 25 mg 04/02/19 10:00 04/07/19 10:22 Librium PO 25 mg Q6H HERMILA Administration Enoxaparin Sodium 40 mg 04/03/19 22:00 04/06/19 21:16 Lovenox SUB-Q 40 mg QDAY@2200 HERMILA Administration Famotidine 20 mg 04/01/19 10:00 04/07/19 10:19 Pepcid PO 20 mg BID HERMILA Administration Haloperidol Lactate 5 mg 03/31/19 20:33 04/04/19 05:35 Haldol IV 5 mg Q1H PRN Administration Unrespon. to mult. doses BZD's Lorazepam 2 mg 03/31/19 20:33 04/07/19 10:16 Ativan IV 2 mg Q1H PRN Administration CIWA-Ar 8-15 Lorazepam 4 mg 03/31/19 20:33 04/04/19 05:26 Ativan IV 4 mg Q1H PRN Administration CIWA-Ar 16-25 Lorazepam 4 mg 03/31/19 20:33 04/03/19 07:20 Ativan IV 4 mg Q15MIN PRN Administration CIWA-Ar >25 Morphine Sulfate 2 mg 03/31/19 20:39 04/06/19 00:49 Morphine IV 2 mg Q4H PRN Administration Pain, Moderate (4-6) Ondansetron HCl 4 mg 03/31/19 20:39 Zofran IV Q8H PRN Nausea And Vomiting Quetiapine Fumarate 150 mg 04/03/19 15:00 04/07/19 10:19 Seroquel PO 150 mg BID HERMILA Administration Simple Syrup 15 ml 04/03/19 14:35 Simple Syrup FEEDTUBE PRN PRN Hypoglycemia Simple Syrup 30 ml 04/03/19 14:35 Simple Syrup FEEDTUBE PRN PRN Hypoglycemia Sodium Bicarbonate 325 mg 04/03/19 14:35 Sodium Bicarbonate FEEDTUBE PRN PRN For Clogged Feeding Tube Sodium Chloride 10 ml 03/31/19 22:00 04/07/19 10:22 Sodium Chloride Flush Syringe 10 Ml IV 10 ml BID HERMILA Administration Sodium Chloride 10 ml 03/31/19 20:39 Sodium Chloride Flush Syringe 10 Ml IV PRN PRN LINE FLUSH Nutrition/Malnutrition Assess - Dietary Evaluation Nutrition/Malnutrition Findings: Nutrition Notes Start: 04/03/19 14:21 Freq: Status: Active Protocol: Document 04/03/19 14:21 RM (Rec: 04/03/19 14:37 RM [id number]) Nutrition Notes Need for Assessment generated from: MD Order Initial or Follow up Assessment Other Pertinent Diagnosis Dysarthria, UTI, ETOH intoxication w/DTs, toxic metabolic encephalopathy Current Diet No diet ordered Labs/Tests Reviewed Pertinent Medications Reviewed Height 5 ft 6 in Weight 63.8 kg [place] Body Weight (kg) 64.54 BMI 22.6 Subjective/Other Information Consulted for TF recommendation. Per rounds dobhoff planned to be placed. [employer] received verbal order for TF consult. Burn Absent Trauma Absent #1 Nutrition Diagnosis Inadequate oral intake Etiology ETOH intoxication w/DTs As Evidenced by Signs and Symptoms no diet ordered, TF consult Is patient on ventilator? No Is Patient Ambulatory and/or Out of Bed No REE-([facility]-confined to bed) 5059.448 Calculation Used for Recommendations [facility] Additional Notes Protein Needs: 77-128g (1.2-2g /kg) Fluid Needs: 1 ml/kcal Nutrition Intervention Nutrition Support: Osmolite 1.5 at 50 ml/hr. Water flush of 150 mls q 4 hrs . Kcal 1,800 Protein (gm) 75 Fluid (mL) 914 Goal #1 TF tolerance Goal #2 Meet at least 80% of calorie and protein needs via TF Anticipated Discharge Needs: Unable to determine at this time Follow-Up By: 04/07/19 Additional Comments Follow for new TF
[2019-04-07] MEDS ORDERED: NACL 0.9% 1000 ML 1,000 ML IV ONE (19:24)
[2019-04-07] MEDS: NACL 0.9% 1000 ML 1,000 ML IV SCH (21:00)
[2019-04-07] MEDS: LOVENOX SUB-Q SCH (21:07)
[2019-04-07] MEDS: ASPIRIN PO SCH (21:08)
[2019-04-08] MEDS: ATIVAN IV PRN ×2 (01:14→08:42)
[2019-04-08] MEDS: NACL 0.9% 1000 ML 1,000 ML IV SCH ×3 (04:04→20:40)
[2019-04-08] MEDS: LIBRIUM PO SCH ×4 (04:04→22:48)
[2019-04-08 06:18] LABS: Alanine Aminotransferase 40 units/L (7-56); Albumin 3.8 g/dL (3.9-5); BUN/Creatinine Ratio 28; Blood Urea Nitrogen 14 mg/dL (9-20); Calcium 8.7 mg/dL (8.4-10.2); Hemolysis Index 1
[2019-04-08] MEDS ORDERED: MAGNESIUM SULFATE 3 GM in NACL 0.9% 100 ML IV ONE (09:00)
[2019-04-08] MEDS: POTASSIUM CHLORIDE FEEDTUBE SCH ×2 (09:08→11:24)
[2019-04-08] MEDS: PEPCID PO SCH ×2 (09:40→22:48)
[2019-04-08] MEDS: SODIUM CHLORIDE FLUSH SYRINGE 10 ML IV SCH ×2 (09:40→22:48)
--- NOTE | 2019-04-08 13:41 | Progress Note ---
Assessment and Plan Assessment and plan: Acute encephalopathy Sec to DT's and severe ETOH dependence Still confused CIWA score this morning was 12 Delirium tremens Patient has high CIWA score and still getting benzos Cont CIWA protocol EtOH dependence Patient to be counseled with a malawian inerpretor when more alert and oriented He is mumbling Hypokalemia Supplemented Hypomagnesemia Supplemented multiple times Check Mg level again Hyponatremia Corrected Transaminitis Sec to ETOH Malnutrition of moderate degree Dietitian consulted DVT prophylaxis On Lovenox and GI prophylaxis disposition; continue inpatient care. History Interval history: Patient was seen and evaluated this morning, patient was confused. I used log haul chain feeder #[id number] and patient was confused and mumbling. The in terpreter didn't understand him. Hospitalist Physical - Physical exam Narrative exam: Not in cardiopulmonary distress. The patient appeared well nourished and normally developed. Vital signs as documented. Head exam is unremarkable. ENT; NG tube in place No scleral icterus . Neck is without jugular venous distension, thyromegaly, or carotid bruits. Lungs are clear to auscultation. Cardiac exam reveals regular rate and Rhythm. First and second heart sounds normal. No murmurs, rubs or gallops. Abdominal exam reveals normal bowel sounds, no masses, no organomegaly and no aortic enlargement. Extremities are nonedematous and both femoral and pedal pulses are normal. BREAKER HAND: patiennt is confused. Mumbling - Constitutional Vitals: Temp Pulse Resp BP Pulse Ox 98.0 F 85 20 166/97 97 04/08/19 11:52 04/08/19 11:52 04/08/19 11:52 04/08/19 11:52 04/08/19 11:52 General appearance: Present: severe distress, well-nourished Results - Labs CBC & Chem 7: 04/01/19 04:51 04/08/19 05:07 Labs: Laboratory Last Values WBC 5.1 K/mm3 (4.5-11.0) 04/01/19 04:51 RBC 4.00 M/mm3 (3.65-5.03) 04/01/19 04:51 Hgb 12.4 gm/dl (11.8-15.2) 04/01/19 04:51 Hct 36.6 % (35.5-45.6) 04/01/19 04:51 MCV 91 fl (84-94) 04/01/19 04:51 MCH 31 pg (28-32) 04/01/19 04:51 MCHC 34 % (32-34) 04/01/19 04:51 RDW 12.8 % (13.2-15.2) L 04/01/19 04:51 Plt Count 103 K/mm3 (140-440) L 04/01/19 04:51 Lymph % (Auto) 9.4 % (13.4-35.0) L 04/01/19 04:51 [place] % (Auto) 9.1 % (0.0-7.3) H 04/01/19 04:51 Eos % (Auto) 2.3 % (0.0-4.3) 04/01/19 04:51 Baso % (Auto) 0.6 % (0.0-1.8) 04/01/19 04:51 Lymph # 0.5 K/mm3 (1.2-5.4) L 04/01/19 04:51 [place] # 0.5 K/mm3 (0.0-0.8) 04/01/19 04:51 Eos # 0.1 K/mm3 (0.0-0.4) 04/01/19 04:51 Baso # 0.0 K/mm3 (0.0-0.1) 04/01/19 04:51 Seg Neutrophils % 78.6 % (40.0-70.0) H 04/01/19 04:51 Seg Neutrophils # 4.0 K/mm3 (1.8-7.7) 04/01/19 04:51 PT 13.2 Sec. (12.2-14.9) 03/31/19 13:29 INR 1.03 (0.87-1.13) 03/31/19 13:29 APTT 29.3 Sec. (24.2-36.6) 03/31/19 13:29 15.5 Sec. (15.1-19.6) 03/31/19 13:29 Sodium 141 mmol/L (137-145) 04/08/19 05:07 Potassium 3.2 mmol/L (3.6-5.0) L 04/08/19 05:07 Chloride 100.2 mmol/L (98-107) 04/08/19 05:07 Carbon Dioxide 28 mmol/L (22-30) 04/08/19 05:07 16 mmol/L 04/08/19 05:07 BUN 14 mg/dL (9-20) 04/08/19 05:07 0.5 mg/dL (0.8-1.5) L 04/08/19 05:07 Estimated GFR > 60 ml/min 04/08/19 05:07 28 % 04/08/19 05:07 Glucose 86 mg/dL (75-100) 04/08/19 05:07 POC Glucose 100 (70-105) 03/31/19 13:55 5.1 % (4-6) 03/31/19 21:26 Calcium 8.7 mg/dL (8.4-10.2) 04/08/19 05:07 Phosphorus 4.00 mg/dL (2.5-4.5) 04/04/19 14:00 Magnesium 1.40 mg/dL (1.7-2.3) L 04/05/19 05:21 0.40 mg/dL (0.1-1.2) 04/08/19 05:07 AST 45 units/L (5-40) H 04/08/19 05:07 ALT 40 units/L (7-56) 04/08/19 05:07 114 units/L (35-129) 04/08/19 05:07 48.0 umol/L (25-60) 03/31/19 21:26 574 units/L (55-170) H 03/31/19 13:29 < 0.010 ng/mL (0.00-0.029) 03/31/19 13:29 7.4 g/dL (6.3-8.2) 04/08/19 05:07 3.8 g/dL (3.9-5) L 04/08/19 05:07 1.1 % 04/08/19 05:07 Triglycerides 63 mg/dL (2-149) 04/01/19 04:51 Cholesterol 199 mg/dL (50-199) 04/01/19 04:51 99 mg/dL (50-130) 04/01/19 04:51 101 mg/dL (40-59) H 04/01/19 04:51 1.97 % 04/01/19 04:51 Amylase 141 units/L (27-131) H 03/31/19 21:26 TSH 2.930 mlU/mL (0.270-4.200) 03/31/19 13:29 Free T4 1.13 ng/dL (0.76-1.46) 03/31/19 13:29 Yellow (Yellow) 03/31/19 17:20 Slightly-cloudy (Clear) 03/31/19 17:20 5.0 (5.0-7.0) 03/31/19 17:20 Ur Specific [place] 1.008 (1.003-1.030) 03/31/19 17:20 <15 mg/dl mg/dL (Negative) 03/31/19 17:20 Neg mg/dL (Negative) 03/31/19 17:20 Tr mg/dL (Negative) 03/31/19 17:20 Sm (Negative) 03/31/19 17:20 Neg (Negative) 03/31/19 17:20 Neg (Negative) 03/31/19 17:20 4.0 mg/dL (<2.0) 03/31/19 17:20 Ur Leukocyte Esterase Neg (Negative) 03/31/19 17:20 7.0 /HPF (0.0-6.0) H 03/31/19 17:20 4.0 /HPF (0.0-6.0) 03/31/19 17:20 Presumptive negative 03/31/19 17:20 Presumptive negative 03/31/19 17:20 Ur Barbiturates Screen Presumptive negative 03/31/19 17:20 Ur Phencyclidine Scrn Presumptive negative 03/31/19 17:20 Ur Amphetamines Screen Presumptive negative 03/31/19 17:20 U Benzodiazepines Scrn Presumptive negative 03/31/19 17:20 Presumptive negative 03/31/19 17:20 U Marijuana (THC) Screen Presumptive negative 03/31/19 17:20 Disclamer 03/31/19 17:20 Plasma/Serum Alcohol 0.13 % (0-0.07) H 03/31/19 13:29 Active Medications - Current Medications Current Medications: Generic Name Dose Route Start Last Admin Trade Name Freq PRN Reason Stop Dose Admin Acetaminophen 650 mg 03/31/19 20:39 04/01/19 21:33 Tylenol PO 650 mg Q4H PRN Administration Pain MILD(1-3)/Fever >100.5/BLOOM Lipase/Protease/Amylase 1 each 04/03/19 14:35 Pancreaze 10,500 Unit FEEDTUBE PRN PRN For Clogged Feeding Tube Aspirin 325 mg 04/01/19 22:00 04/07/19 21:08 Aspirin PO 325 mg QDAY@2200 HERMILA Administration Atorvastatin Calcium 40 mg 03/31/19 22:00 04/07/19 21:08 Lipitor PO 40 mg QHS HERMILA Administration Chlordiazepoxide HCl 25 mg 04/02/19 10:00 04/08/19 09:36 Librium PO 25 mg Q6H HERMILA Administration Enoxaparin Sodium 40 mg 04/03/19 22:00 04/07/19 21:07 Lovenox SUB-Q 40 mg QDAY@2200 HERMILA Administration Famotidine 20 mg 04/01/19 10:00 04/08/19 09:40 Pepcid PO 20 mg BID HERMILA Administration Haloperidol Lactate 5 mg 03/31/19 20:33 04/04/19 05:35 Haldol IV 5 mg Q1H PRN Administration Unrespon. to mult. doses BZD's Sodium Chloride 1,000 mls @ 125 mls/hr 04/07/19 20:00 04/08/19 04:04 Nacl 0.9% 1000 Ml IV 125 mls/hr DIRECT HERMILA Administration Lorazepam 2 mg 03/31/19 20:33 04/08/19 08:42 Ativan IV 2 mg Q1H PRN Administration CIWA-Ar 8-15 Lorazepam 4 mg 03/31/19 20:33 04/04/19 05:26 Ativan IV 4 mg Q1H PRN Administration CIWA-Ar 16-25 Lorazepam 4 mg 03/31/19 20:33 04/03/19 07:20 Ativan IV 4 mg Q15MIN PRN Administration CIWA-Ar >25 Morphine Sulfate 2 mg 03/31/19 20:39 04/06/19 00:49 Morphine IV 2 mg Q4H PRN Administration Pain, Moderate (4-6) Ondansetron HCl 4 mg 03/31/19 20:39 Zofran IV Q8H PRN Nausea And Vomiting Quetiapine Fumarate 150 mg 04/03/19 15:00 04/08/19 09:36 Seroquel PO 150 mg BID HERMILA Administration Simple Syrup 15 ml 04/03/19 14:35 Simple Syrup FEEDTUBE PRN PRN Hypoglycemia Simple Syrup 30 ml 04/03/19 14:35 Simple Syrup FEEDTUBE PRN PRN Hypoglycemia Sodium Bicarbonate 325 mg 04/03/19 14:35 Sodium Bicarbonate FEEDTUBE PRN PRN For Clogged Feeding Tube Sodium Chloride 10 ml 03/31/19 22:00 04/08/19 09:40 Sodium Chloride Flush Syringe 10 Ml IV 10 ml BID HERMILA Administration Sodium Chloride 10 ml 03/31/19 20:39 Sodium Chloride Flush Syringe 10 Ml IV PRN PRN LINE FLUSH Nutrition/Malnutrition Assess - Dietary Evaluation Nutrition/Malnutrition Findings: Nutrition Notes Start: 04/03/19 14:21 Freq: Status: Active Protocol: Document 04/07/19 15:38 OH (Rec: 04/07/19 15:43 OH [id number]) Nutrition Notes Initial or Follow up Reassessment Other Pertinent Diagnosis Dysarthria, UTI, ETOH intoxication w/DTs, toxic metabolic encephalopathy Current Diet npo Labs/Tests K+ 3.1 GLU 119 Pertinent Medications Lipitor Lovenox Haldol Ativan Height 5 ft 6 in Weight 63.8 kg [place] Body Weight (kg) 64.54 BMI 22.6 Subjective/Other Information F/U. Pt. lying in bed asleep. TF running @ goal rate of 50 cc/hr. Per RN no residual of Osmolite TF. Pt. tolerating TF w/o n/v. Percent of energy/protein needs met: 100/100% Burn Absent Trauma Absent GI Symptoms None Is patient on ventilator? No Is Patient Ambulatory and/or Out of Bed No REE-([facility]-confined to bed) 7520.028 Additional Notes Protein Needs: 77-128g (1.2-2g /kg) Fluid Needs: 1 ml/kcal Nutrition Intervention Nutrition Support: Osmolite 1.5 at 50 ml/hr. Water flush of 150 mls q 4 hrs . Goal #1 TF tolerance Goal #2 Meet at least 80% of calorie and protein needs via TF Goal #3 Diet advancement Anticipated Discharge Needs: Unable to determine at this time Follow-Up By: 04/09/19 Additional Comments Follow for TF tolerance and diet advancement
[2019-04-08] MEDS: LOVENOX SUB-Q SCH (22:47)
[2019-04-08] MEDS: ASPIRIN PO SCH (22:48)
[2019-04-09] MEDS: NACL 0.9% 1000 ML 1,000 ML IV SCH ×3 (03:55→18:59)
[2019-04-09] MEDS: LIBRIUM PO SCH ×4 (03:55→22:37)
--- NOTE | 2019-04-09 05:47 | Progress Note ---
Assessment and Plan Alcohol intoxication with DTs Hyponatremia Hypokalemia Hypomagnesemia Dysarthria Toxic-metabolic encephalopathy - continue scheduled librium, CIWA protocol - continue seroquel with slow taper - continue tube feeds as tolerated - Replace electrolytes as indicated - VTE prophylaxis - Blood pressure control and monitoring - continue aspiration precautions - Alcohol counseling once he is able to actively participate in the discussion - continue accuchecks with glycemic control per SSI (avoid hypoglycemia) - Monitor for bleeding. ... re-evaluate prn at this point Subjective Date of service: 04/09/19 Principal diagnosis: Alcohol withdrawal with DTs; Dysarthria; Toxic-metabolic encephalopathy Interval history: Patient is seen today for: Alcohol intoxication with DTs; Hyponatremia; Hypokalemia; Hypomagnesemia; Dysarthria; Toxic-metabolic encephalopathy Seen and examined at bedside; 24hour events reviewed; nursing and respiratory care staff consulted; no adverse overnight events reported to me; resting peacefully in bed; no new issues Objective Vital Signs - 12hr 04/08/19 04/08/19 23:00 23:34 Temperature 99.6 F Pulse Rate 86 Respiratory 20 20 Rate Blood Pressure 127/78 O2 Sat by Pulse 100 Oximetry Constitutional: appears uncomfortable, other (middle aged, thin HM, normocephalic and atraumatic with mildly increased resp effort at rest) Eyes: non-icteric ENT: oropharynx moist Neck: supple, no lymphadenopathy, no JVD, other (no thyromegaly) Effort: normal Ascultation: Bilateral: clear Percussion: Bilateral: not dull Cardiovascular: regular rate and rhythm, other (tacycardia, S1,S2, no murmurs) Gastrointestinal: normoactive bowel sounds, soft, non-tender, non-distended, other (No palpable HSM) Integumentary: normal Extremities: no cyanosis, no edema, pulses normal, no ischemia or petechiae Neurologic: non-focal exam (grossly), pupils equal and round, unable to assess Psychiatric: other (agitation on and off with somnolence) CBC and BMP: 04/09/19 14:05 04/09/19 14:05 ABG, PT/INR, D-dimer: PT/INR, D-dimer PT 13.2 Sec. (12.2-14.9) 03/31/19 13:29 INR 1.03 (0.87-1.13) 03/31/19 13:29 Abnormal lab findings: Abnormal Labs 03/31/19 03/31/19 03/31/19 13:29 13:29 13:29 MCHC 35 H RDW 12.9 L Plt Count Lymph % (Auto) 9.4 L [place] % (Auto) 12.4 H Lymph # 0.5 L Seg Neutrophils % 76.4 H Sodium 123 L Potassium 2.8 L* Chloride 73.7 L Carbon Dioxide BUN Creatinine Glucose 117 H Magnesium Total Bilirubin AST ALT Total Creatine Kinase 574 H Albumin HDL Cholesterol Amylase Urine WBC (Auto) Plasma/Serum Alcohol 03/31/19 03/31/19 03/31/19 13:29 13:29 17:20 MCHC RDW Plt Count Lymph % (Auto) [place] % (Auto) Lymph # Seg Neutrophils % Sodium Potassium Chloride Carbon Dioxide BUN Creatinine Glucose Magnesium 1.60 L Total Bilirubin AST ALT Total Creatine Kinase Albumin HDL Cholesterol Amylase Urine WBC (Auto) 7.0 H Plasma/Serum Alcohol 0.13 H 03/31/19 04/01/19 04/01/19 21:26 04:51 04:51 MCHC RDW 12.8 L Plt Count 103 L Lymph % (Auto) 9.4 L [place] % (Auto) 9.1 H Lymph # 0.5 L Seg Neutrophils % 78.6 H Sodium 134 L D Potassium 3.1 L Chloride 91.9 L Carbon Dioxide 31 H BUN Creatinine 0.5 L Glucose Magnesium Total Bilirubin 1.70 H AST 154 H ALT 73 H Total Creatine Kinase Albumin 3.8 L HDL Cholesterol 101 H Amylase 141 H Urine WBC (Auto) Plasma/Serum Alcohol 04/02/19 04/02/19 04/03/19 09:59 09:59 05:08 MCHC RDW Plt Count Lymph % (Auto) [place] % (Auto) Lymph # Seg Neutrophils % Sodium Potassium 2.9 L* Chloride Carbon Dioxide BUN 8 L Creatinine 0.5 L Glucose Magnesium 1.20 L 1.30 L Total Bilirubin AST ALT Total Creatine Kinase Albumin HDL Cholesterol Amylase Urine WBC (Auto) Plasma/Serum Alcohol 04/03/19 04/04/19 04/04/19 08:56 14:00 14:00 MCHC RDW Plt Count Lymph % (Auto) [place] % (Auto) Lymph # Seg Neutrophils % Sodium Potassium 3.0 L D Chloride 97.9 L Carbon Dioxide BUN Creatinine 0.5 L 0.5 L Glucose 112 H Magnesium 1.60 L Total Bilirubin AST ALT Total Creatine Kinase Albumin HDL Cholesterol Amylase Urine WBC (Auto) Plasma/Serum Alcohol 04/05/19 04/05/19 04/08/19 05:21 05:21 05:07 MCHC RDW Plt Count Lymph % (Auto) [place] % (Auto) Lymph # Seg Neutrophils % Sodium Potassium 3.1 L 3.2 L Chloride 97.0 L Carbon Dioxide BUN Creatinine 0.6 L 0.5 L Glucose 119 H Magnesium 1.40 L Total Bilirubin AST 45 H ALT Total Creatine Kinase Albumin 3.8 L HDL Cholesterol Amylase Urine WBC (Auto) Plasma/Serum Alcohol Allied health notes reviewed: nursing
[2019-04-09] MEDS: PEPCID PO SCH ×2 (09:56→21:15)
[2019-04-09] MEDS: SODIUM CHLORIDE FLUSH SYRINGE 10 ML IV SCH ×2 (09:56→22:38)
--- NOTE | 2019-04-09 10:52 | Progress Note ---
Assessment and Plan Assessment and plan: Acute encephalopathy Sec to DT's and severe ETOH dependence Still confused CIWA score this morning was 12 Delirium tremens Patient has high CIWA score and still getting benzos Cont CIWA protocol EtOH dependence Patient to be counseled with a cuban inerpretor when more alert and oriented He is mumbling Hypokalemia Supplemented Hypomagnesemia Supplemented multiple times Check Mg level again Hyponatremia Corrected Transaminitis Sec to ETOH Malnutrition of moderate degree Dietitian consulted DVT prophylaxis On Lovenox and GI prophylaxis disposition; continue inpatient care. History Interval history: Patient was seen and evaluated this morning, patient was confused. I used necktie operator pockets and pieces yesterday #[id number] and patient was confused and mumbling. The med aide didn't understand him. The same like yesterday. Hospitalist Physical - Physical exam Narrative exam: Not in cardiopulmonary distress. The patient appeared well nourished and normally developed. Vital signs as documented. Head exam is unremarkable. ENT; NG tube in place No scleral icterus . Neck is without jugular venous distension, thyromegaly, or carotid bruits. Lungs are clear to auscultation. Cardiac exam reveals regular rate and Rhythm. First and second heart sounds normal. No murmurs, rubs or gallops. Abdominal exam reveals normal bowel sounds, no masses, no organomegaly and no aortic enlargement. Extremities are nonedematous and both femoral and pedal pulses are normal. PROFILER HAND: patiennt is confused. Mumbling - Constitutional Vitals: Temp Pulse Resp BP Pulse Ox 99.3 F 78 18 154/94 100 04/09/19 05:59 04/09/19 05:59 04/09/19 05:59 04/09/19 05:59 04/09/19 05:59 General appearance: Present: severe distress, well-nourished Results - Labs CBC & Chem 7: 04/01/19 04:51 04/08/19 05:07 Labs: Laboratory Last Values WBC 5.1 K/mm3 (4.5-11.0) 04/01/19 04:51 RBC 4.00 M/mm3 (3.65-5.03) 04/01/19 04:51 Hgb 12.4 gm/dl (11.8-15.2) 04/01/19 04:51 Hct 36.6 % (35.5-45.6) 04/01/19 04:51 MCV 91 fl (84-94) 04/01/19 04:51 MCH 31 pg (28-32) 04/01/19 04:51 MCHC 34 % (32-34) 04/01/19 04:51 RDW 12.8 % (13.2-15.2) L 04/01/19 04:51 Plt Count 103 K/mm3 (140-440) L 04/01/19 04:51 Lymph % (Auto) 9.4 % (13.4-35.0) L 04/01/19 04:51 [place] % (Auto) 9.1 % (0.0-7.3) H 04/01/19 04:51 Eos % (Auto) 2.3 % (0.0-4.3) 04/01/19 04:51 Baso % (Auto) 0.6 % (0.0-1.8) 04/01/19 04:51 Lymph # 0.5 K/mm3 (1.2-5.4) L 04/01/19 04:51 [place] # 0.5 K/mm3 (0.0-0.8) 04/01/19 04:51 Eos # 0.1 K/mm3 (0.0-0.4) 04/01/19 04:51 Baso # 0.0 K/mm3 (0.0-0.1) 04/01/19 04:51 Seg Neutrophils % 78.6 % (40.0-70.0) H 04/01/19 04:51 Seg Neutrophils # 4.0 K/mm3 (1.8-7.7) 04/01/19 04:51 PT 13.2 Sec. (12.2-14.9) 03/31/19 13:29 INR 1.03 (0.87-1.13) 03/31/19 13:29 APTT 29.3 Sec. (24.2-36.6) 03/31/19 13:29 15.5 Sec. (15.1-19.6) 03/31/19 13:29 Sodium 141 mmol/L (137-145) 04/08/19 05:07 Potassium 3.2 mmol/L (3.6-5.0) L 04/08/19 05:07 Chloride 100.2 mmol/L (98-107) 04/08/19 05:07 Carbon Dioxide 28 mmol/L (22-30) 04/08/19 05:07 16 mmol/L 04/08/19 05:07 BUN 14 mg/dL (9-20) 04/08/19 05:07 0.5 mg/dL (0.8-1.5) L 04/08/19 05:07 Estimated GFR > 60 ml/min 04/08/19 05:07 28 % 04/08/19 05:07 Glucose 86 mg/dL (75-100) 04/08/19 05:07 POC Glucose 100 (70-105) 03/31/19 13:55 5.1 % (4-6) 03/31/19 21:26 Calcium 8.7 mg/dL (8.4-10.2) 04/08/19 05:07 Phosphorus 4.00 mg/dL (2.5-4.5) 04/04/19 14:00 Magnesium 1.40 mg/dL (1.7-2.3) L 04/05/19 05:21 0.40 mg/dL (0.1-1.2) 04/08/19 05:07 AST 45 units/L (5-40) H 04/08/19 05:07 ALT 40 units/L (7-56) 04/08/19 05:07 114 units/L (35-129) 04/08/19 05:07 48.0 umol/L (25-60) 03/31/19 21:26 574 units/L (55-170) H 03/31/19 13:29 < 0.010 ng/mL (0.00-0.029) 03/31/19 13:29 7.4 g/dL (6.3-8.2) 04/08/19 05:07 3.8 g/dL (3.9-5) L 04/08/19 05:07 1.1 % 04/08/19 05:07 Triglycerides 63 mg/dL (2-149) 04/01/19 04:51 Cholesterol 199 mg/dL (50-199) 04/01/19 04:51 99 mg/dL (50-130) 04/01/19 04:51 101 mg/dL (40-59) H 04/01/19 04:51 1.97 % 04/01/19 04:51 Amylase 141 units/L (27-131) H 03/31/19 21:26 TSH 2.930 mlU/mL (0.270-4.200) 03/31/19 13:29 Free T4 1.13 ng/dL (0.76-1.46) 03/31/19 13:29 Yellow (Yellow) 03/31/19 17:20 Slightly-cloudy (Clear) 03/31/19 17:20 5.0 (5.0-7.0) 03/31/19 17:20 Ur Specific [place] 1.008 (1.003-1.030) 03/31/19 17:20 <15 mg/dl mg/dL (Negative) 03/31/19 17:20 Neg mg/dL (Negative) 03/31/19 17:20 Tr mg/dL (Negative) 03/31/19 17:20 Sm (Negative) 03/31/19 17:20 Neg (Negative) 03/31/19 17:20 Neg (Negative) 03/31/19 17:20 4.0 mg/dL (<2.0) 03/31/19 17:20 Ur Leukocyte Esterase Neg (Negative) 03/31/19 17:20 7.0 /HPF (0.0-6.0) H 03/31/19 17:20 4.0 /HPF (0.0-6.0) 03/31/19 17:20 Presumptive negative 03/31/19 17:20 Presumptive negative 03/31/19 17:20 Ur Barbiturates Screen Presumptive negative 03/31/19 17:20 Ur Phencyclidine Scrn Presumptive negative 03/31/19 17:20 Ur Amphetamines Screen Presumptive negative 03/31/19 17:20 U Benzodiazepines Scrn Presumptive negative 03/31/19 17:20 Presumptive negative 03/31/19 17:20 U Marijuana (THC) Screen Presumptive negative 03/31/19 17:20 Disclamer 03/31/19 17:20 Plasma/Serum Alcohol 0.13 % (0-0.07) H 03/31/19 13:29 Active Medications - Current Medications Current Medications: Generic Name Dose Route Start Last Admin Trade Name Freq PRN Reason Stop Dose Admin Acetaminophen 650 mg 03/31/19 20:39 04/01/19 21:33 Tylenol PO 650 mg Q4H PRN Administration Pain MILD(1-3)/Fever >100.5/BLOOM Lipase/Protease/Amylase 1 each 04/03/19 14:35 Pancreazar [place] 10,500 Unit FEEDTUBE PRN PRN For Clogged Feeding Tube Aspirin 325 mg 04/01/19 22:00 04/08/19 22:48 Aspirin PO 325 mg QDAY@2200 HERMILA Administration Atorvastatin Calcium 40 mg 03/31/19 22:00 04/08/19 22:48 Lipitor PO 40 mg QHS HERMILA Administration Chlordiazepoxide HCl 25 mg 04/02/19 10:00 04/09/19 10:08 Librium PO 25 mg Q6H HERMILA Administration Enoxaparin Sodium 40 mg 04/03/19 22:00 04/08/19 22:47 Lovenox SUB-Q 40 mg QDAY@2200 HERMILA Administration Famotidine 20 mg 04/01/19 10:00 04/09/19 09:56 Pepcid PO 20 mg BID HERMILA Administration Haloperidol Lactate 5 mg 03/31/19 20:33 04/04/19 05:35 Haldol IV 5 mg Q1H PRN Administration Unrespon. to mult. doses BZD's Sodium Chloride 1,000 mls @ 125 mls/hr 04/07/19 20:00 04/09/19 03:55 Nacl 0.9% 1000 Ml IV 125 mls/hr DIRECT HERMILA Administration Lorazepam 2 mg 03/31/19 20:33 04/08/19 08:42 Ativan IV 2 mg Q1H PRN Administration CIWA-Ar 8-15 Lorazepam 4 mg 03/31/19 20:33 04/04/19 05:26 Ativan IV 4 mg Q1H PRN Administration CIWA-Ar 16-25 Lorazepam 4 mg 03/31/19 20:33 04/03/19 07:20 Ativan IV 4 mg Q15MIN PRN Administration CIWA-Ar >25 Morphine Sulfate 2 mg 03/31/19 20:39 04/06/19 00:49 Morphine IV 2 mg Q4H PRN Administration Pain, Moderate (4-6) Ondansetron HCl 4 mg 03/31/19 20:39 Zofran IV Q8H PRN Nausea And Vomiting Quetiapine Fumarate 150 mg 04/03/19 15:00 04/09/19 09:56 Seroquel PO 150 mg BID HERMILA Administration Simple Syrup 15 ml 04/03/19 14:35 Simple Syrup FEEDTUBE PRN PRN Hypoglycemia Simple Syrup 30 ml 04/03/19 14:35 Simple Syrup FEEDTUBE PRN PRN Hypoglycemia Sodium Bicarbonate 325 mg 04/03/19 14:35 Sodium Bicarbonate FEEDTUBE PRN PRN For Clogged Feeding Tube Sodium Chloride 10 ml 03/31/19 22:00 04/09/19 09:56 Sodium Chloride Flush Syringe 10 Ml IV 10 ml BID HERMILA Administration Sodium Chloride 10 ml 03/31/19 20:39 Sodium Chloride Flush Syringe 10 Ml IV PRN PRN LINE FLUSH Nutrition/Malnutrition Assess - Dietary Evaluation Nutrition/Malnutrition Findings: Nutrition Notes Start: 04/03/19 14:21 Freq: Status: Active Protocol: Document 04/07/19 15:38 OH (Rec: 04/07/19 15:43 OH [id number]) Nutrition Notes Initial or Follow up Reassessment Other Pertinent Diagnosis Dysarthria, UTI, ETOH intoxication w/DTs, toxic metabolic encephalopathy Current Diet npo Labs/Tests K+ 3.1 GLU 119 Pertinent Medications Lipitor Lovenox Haldol Ativan Height 5 ft 6 in Weight 63.8 kg [place] Body Weight (kg) 64.54 BMI 22.6 Subjective/Other Information F/U. Pt. lying in bed asleep. TF running @ goal rate of 50 cc/hr. Per RN no residual of Osmolite TF. Pt. tolerating TF w/o n/v. Percent of energy/protein needs met: 100/100% Burn Absent Trauma Absent GI Symptoms None Is patient on ventilator? No Is Patient Ambulatory and/or Out of Bed No REE-([facility]-confined to bed) 5591.028 Additional Notes Protein Needs: 77-128g (1.2-2g /kg) Fluid Needs: 1 ml/kcal Nutrition Intervention Nutrition Support: Osmolite 1.5 at 50 ml/hr. Water flush of 150 mls q 4 hrs . Goal #1 TF tolerance Goal #2 Meet at least 80% of calorie and protein needs via TF Goal #3 Diet advancement Anticipated Discharge Needs: Unable to determine at this time Follow-Up By: 04/09/19 Additional Comments Follow for TF tolerance and diet advancement
[2019-04-09] MEDS: TYLENOL PO PRN (13:19)
--- NOTE | 2019-04-09 14:09 | XRay Report ---
CHEST 1 VIEW INDICATION: fever. COMPARISON: None. FINDINGS: Support devices: A feeding tube is satisfactory. Heart: Within normal limits. Lungs: No acute air space or interstitial disease. Pleura: No significant pleural effusion. No pneumothorax. Additional findings: None. IMPRESSION: 1. No acute findings. Signer Name: Vernon Reddy MD Signed: 04/09/2019 2:04 PM Workstation Name: [id number]
[2019-04-09 14:16] LABS: Bacteria,Urine 1+ /HPF (Negative); Bilirubin,Urine NEG (Negative); Blood,Urine NEG (Negative); Color,Urine Yellow (Yellow); Protein,Urine <15 mg/dL mg/dL (Negative); WBC,Urine < 1.0 /HPF (0.0-6.0)
[2019-04-09 14:44] LABS: Basophils # (Auto) 0.1 K/mm3 (0.0-0.1); Basophils % (Auto) 0.9 % (0.0-1.8); Eosinophils # (Auto) 0.3 K/mm3 (0.0-0.4); Eosinophils % (Auto) 2.5 % (0.0-4.3); Hematocrit 38.1 % (35.5-45.6); Hemoglobin 12.8 gm/dl (11.8-15.2); Lymphocytes % (Auto) 8.5 % (13.4-35.0); Mean Corpuscular HGB Conc 34 % (32-34); Mean Corpuscular Volume 91 fl (84-94); Monocytes # (Auto) 1.4 K/mm3 (0.0-0.8); Monocytes % (Auto) 11.7 % (0.0-7.3); Platelet Count 278 K/mm3 (140-440); Red Blood Count 4.16 M/mm3 (3.65-5.03); Red Cell Distribution Width 12.7 % (13.2-15.2)
[2019-04-09 15:10] LABS: Alanine Aminotransferase 31 units/L (7-56); Albumin 3.3 g/dL (3.9-5); BUN/Creatinine Ratio 14; Blood Urea Nitrogen 7 mg/dL (9-20); Calcium 8.5 mg/dL (8.4-10.2); Hemolysis Index 1
[2019-04-09] MEDS: LOVENOX SUB-Q SCH (21:14)
[2019-04-09] MEDS: ASPIRIN PO SCH (21:14)
[2019-04-10] MEDS: NACL 0.9% 1000 ML 1,000 ML IV SCH ×2 (02:43→20:49)
[2019-04-10] MEDS: LIBRIUM PO SCH ×4 (04:46→22:40)
[2019-04-10] MEDS ORDERED: POTASSIUM CHLORIDE FEEDTUBE ONE (07:19)
--- NOTE | 2019-04-10 08:13 | Progress Note ---
Assessment and Plan Alcohol intoxication with DTs Hyponatremia Hypokalemia Hypomagnesemia Dysarthria Toxic-metabolic encephalaopthy -Replace electrolytes as indicated -VTE prophylaxis -Blood pressure control and monitoring -Aspiration precautions -Alcohol counselling -Accuchecks with glycemic control, avoid hypoglycemia -Continue with CIWA protocol Subjective Date of service: 04/10/19 Principal diagnosis: CVA,S/p TPA DT's Interval history: Patient is seen today for: Alcohol intoxication with DTs; Hyponatremia; Hypokalemia; Hypomagnesemia; Dysarthria; Toxic-metabolic encephalopathy Seen and examined at bedside; 24hour events reviewed; nursing and respiratory care staff consulted; no adverse overnight events reported to me; No emesis or overt aspiration; in restraints; no overt hemodynamic decompensatio n More awake and alert, speaks Occitan only Objective Vital Signs - 12hr 04/09/19 04/09/19 04/10/19 20:34 23:28 04:30 Temperature 98.0 F 97.7 F Pulse Rate 75 66 Respiratory 18 20 18 Rate Blood Pressure 151/90 159/97 O2 Sat by Pulse 96 98 Oximetry Constitutional: no acute distress, asleep, other (middle aged, thin HM, normocephalic and atraumatic with normal resp effort at rest) Eyes: non-icteric ENT: oropharynx dry Neck: supple, no lymphadenopathy, no JVD, other (no thyromegaly) Effort: normal Ascultation: Bilateral: clear Percussion: Bilateral: not dull Cardiovascular: regular rate and rhythm, other (tacycardia, S1,S2, no murmurs) Gastrointestinal: normoactive bowel sounds, soft, non-tender, non-distended, other (No palpable HSM) Integumentary: normal Extremities: no cyanosis, no edema, pulses normal, no ischemia or petechiae Neurologic: non-focal exam (grossly), pupils equal and round, motor strength normal and, other (oriented x3, obeys one step commands) Psychiatric: mood appropriate, affect normal CBC and BMP: 04/09/19 14:05 04/09/19 14:05 ABG, PT/INR, D-dimer: PT/INR, D-dimer PT 13.2 Sec. (12.2-14.9) 03/31/19 13:29 INR 1.03 (0.87-1.13) 03/31/19 13:29 Abnormal lab findings: Abnormal Labs 03/31/19 03/31/19 03/31/19 13:29 13:29 13:29 WBC MCHC 35 H RDW 12.9 L Plt Count Lymph % (Auto) 9.4 L [place] % (Auto) 12.4 H Lymph # 0.5 L [place] # Seg Neutrophils % 76.4 H Seg Neutrophils # Sodium 123 L Potassium 2.8 L* Chloride 73.7 L Carbon Dioxide BUN Creatinine Glucose 117 H Magnesium Total Bilirubin AST ALT Total Creatine Kinase 574 H Albumin HDL Cholesterol Amylase Urine WBC (Auto) Plasma/Serum Alcohol 03/31/19 03/31/19 03/31/19 13:29 13:29 17:20 WBC MCHC RDW Plt Count Lymph % (Auto) [place] % (Auto) Lymph # [place] # Seg Neutrophils % Seg Neutrophils # Sodium Potassium Chloride Carbon Dioxide BUN Creatinine Glucose Magnesium 1.60 L Total Bilirubin AST ALT Total Creatine Kinase Albumin HDL Cholesterol Amylase Urine WBC (Auto) 7.0 H Plasma/Serum Alcohol 0.13 H 03/31/19 04/01/19 04/01/19 21:26 04:51 04:51 WBC MCHC RDW 12.8 L Plt Count 103 L Lymph % (Auto) 9.4 L [place] % (Auto) 9.1 H Lymph # 0.5 L [place] # Seg Neutrophils % 78.6 H Seg Neutrophils # Sodium 134 L D Potassium 3.1 L Chloride 91.9 L Carbon Dioxide 31 H BUN Creatinine 0.5 L Glucose Magnesium Total Bilirubin 1.70 H AST 154 H ALT 73 H Total Creatine Kinase Albumin 3.8 L HDL Cholesterol 101 H Amylase 141 H Urine WBC (Auto) Plasma/Serum Alcohol 04/02/19 04/02/19 04/03/19 09:59 09:59 05:08 WBC MCHC RDW Plt Count Lymph % (Auto) [place] % (Auto) Lymph # [place] # Seg Neutrophils % Seg Neutrophils # Sodium Potassium 2.9 L* Chloride Carbon Dioxide BUN 8 L Creatinine 0.5 L Glucose Magnesium 1.20 L 1.30 L Total Bilirubin AST ALT Total Creatine Kinase Albumin HDL Cholesterol Amylase Urine WBC (Auto) Plasma/Serum Alcohol 04/03/19 04/04/19 04/04/19 08:56 14:00 14:00 WBC MCHC RDW Plt Count Lymph % (Auto) [place] % (Auto) Lymph # [place] # Seg Neutrophils % Seg Neutrophils # Sodium Potassium 3.0 L D Chloride 97.9 L Carbon Dioxide BUN Creatinine 0.5 L 0.5 L Glucose 112 H Magnesium 1.60 L Total Bilirubin AST ALT Total Creatine Kinase Albumin HDL Cholesterol Amylase Urine WBC (Auto) Plasma/Serum Alcohol 04/05/19 04/05/19 04/08/19 05:21 05:21 05:07 WBC MCHC RDW Plt Count Lymph % (Auto) [place] % (Auto) Lymph # [place] # Seg Neutrophils % Seg Neutrophils # Sodium Potassium 3.1 L 3.2 L Chloride 97.0 L Carbon Dioxide BUN Creatinine 0.6 L 0.5 L Glucose 119 H Magnesium 1.40 L Total Bilirubin AST 45 H ALT Total Creatine Kinase Albumin 3.8 L HDL Cholesterol Amylase Urine WBC (Auto) Plasma/Serum Alcohol 04/09/19 04/09/19 14:05 14:05 WBC 12.0 H MCHC RDW 12.7 L Plt Count Lymph % (Auto) 8.5 L [place] % (Auto) 11.7 H Lymph # 1.0 L [place] # 1.4 H Seg Neutrophils % 76.4 H Seg Neutrophils # 9.2 H Sodium 136 L Potassium 3.3 L Chloride Carbon Dioxide BUN 7 L Creatinine 0.5 L Glucose 128 H Magnesium Total Bilirubin AST ALT Total Creatine Kinase Albumin 3.3 L HDL Cholesterol Amylase Urine WBC (Auto) Plasma/Serum Alcohol Allied health notes reviewed: nursing
--- NOTE | 2019-04-10 09:31 | Progress Note ---
Assessment and Plan Assessment and plan: Acute encephalopathy Sec to DT's and severe ETOH dependence Still confused CIWA score this morning was 12 Delirium tremens Patient has high CIWA score and still getting benzos Cont CIWA protocol EtOH dependence Patient to be counseled with a sao tomean inerpretor when more alert and oriented He is mumbling Hypokalemia Supplemented Hypomagnesemia Supplemented multiple times Check Mg level again Hyponatremia Corrected Transaminitis Sec to ETOH Malnutrition of moderate degree Dietitian consulted DVT prophylaxis On Lovenox and GI prophylaxis Patient had episode of fever yesterday; CBC, CMP, chest x-ray, UA, urine and blood culture was done. Chest x-ray is normal, urinalysis negative for any sign of infection. No antibiotics needed continue to monitor. disposition; continue inpatient care. History Interval history: Patient was seen and evaluated this morning, patient was confused. I used metallurgical or materials technician yesterday #[id number] patient stated he was feeling much better, patient ate breakfast. Patient oriented to self but not to time and place. Hospitalist Physical - Physical exam Narrative exam: Not in cardiopulmonary distress. The patient appeared well nourished and normally developed. Vital signs as documented. Head exam is unremarkable. ENT; NG tube in place No scleral icterus . Neck is without jugular venous distension, thyromegaly, or carotid bruits. Lungs are clear to auscultation. Cardiac exam reveals regular rate and Rhythm. First and second heart sounds normal. No murmurs, rubs or gallops. Abdominal exam reveals normal bowel sounds, no masses, no organomegaly and no aortic enlargement. Extremities are nonedematous and both femoral and pedal pulses are normal. HOSPITALITY DIRECTOR: [email or web address] is is oriented to self but not to time and place. - Constitutional Vitals: Temp Pulse Resp BP Pulse Ox 97.7 F 66 18 159/97 98 04/10/19 04:30 04/10/19 04:30 04/10/19 04:30 04/10/19 04:30 04/10/19 04:30 General appearance: Present: severe distress, well-nourished Results - Labs CBC & Chem 7: 04/09/19 14:05 04/09/19 14:05 Labs: Laboratory Last Values WBC 12.0 K/mm3 (4.5-11.0) H 04/09/19 14:05 RBC 4.16 M/mm3 (3.65-5.03) 04/09/19 14:05 Hgb 12.8 gm/dl (11.8-15.2) 04/09/19 14:05 Hct 38.1 % (35.5-45.6) 04/09/19 14:05 MCV 91 fl (84-94) 04/09/19 14:05 MCH 31 pg (28-32) 04/09/19 14:05 MCHC 34 % (32-34) 04/09/19 14:05 RDW 12.7 % (13.2-15.2) L 04/09/19 14:05 Plt Count 278 K/mm3 (140-440) 04/09/19 14:05 Lymph % (Auto) 8.5 % (13.4-35.0) L 04/09/19 14:05 Carbon % (Auto) 11.7 % (0.0-7.3) H 04/09/19 14:05 Eos % (Auto) 2.5 % (0.0-4.3) 04/09/19 14:05 Baso % (Auto) 0.9 % (0.0-1.8) 04/09/19 14:05 Lymph # 1.0 K/mm3 (1.2-5.4) L 04/09/19 14:05 Carbon # 1.4 K/mm3 (0.0-0.8) H 04/09/19 14:05 Eos # 0.3 K/mm3 (0.0-0.4) 04/09/19 14:05 Baso # 0.1 K/mm3 (0.0-0.1) 04/09/19 14:05 Seg Neutrophils % 76.4 % (40.0-70.0) H 04/09/19 14:05 Seg Neutrophils # 9.2 K/mm3 (1.8-7.7) H 04/09/19 14:05 PT 13.2 Sec. (12.2-14.9) 03/31/19 13:29 INR 1.03 (0.87-1.13) 03/31/19 13:29 APTT 29.3 Sec. (24.2-36.6) 03/31/19 13:29 15.5 Sec. (15.1-19.6) 03/31/19 13:29 Sodium 136 mmol/L (137-145) L 04/09/19 14:05 Potassium 3.3 mmol/L (3.6-5.0) L 04/09/19 14:05 Chloride 101.6 mmol/L (98-107) 04/09/19 14:05 Carbon Dioxide 23 mmol/L (22-30) 04/09/19 14:05 15 mmol/L 04/09/19 14:05 BUN 7 mg/dL (9-20) L 04/09/19 14:05 0.5 mg/dL (0.8-1.5) L 04/09/19 14:05 Estimated GFR > 60 ml/min 04/09/19 14:05 14 % 04/09/19 14:05 Glucose 128 mg/dL (75-100) H 04/09/19 14:05 POC Glucose 100 (70-105) 03/31/19 13:55 5.1 % (4-6) 03/31/19 21:26 Calcium 8.5 mg/dL (8.4-10.2) 04/09/19 14:05 Phosphorus 4.00 mg/dL (2.5-4.5) 04/04/19 14:00 Magnesium 1.40 mg/dL (1.7-2.3) L 04/05/19 05:21 0.30 mg/dL (0.1-1.2) 04/09/19 14:05 AST 34 units/L (5-40) 04/09/19 14:05 ALT 31 units/L (7-56) 04/09/19 14:05 120 units/L (35-129) 04/09/19 14:05 48.0 umol/L (25-60) 03/31/19 21:26 574 units/L (55-170) H 03/31/19 13:29 < 0.010 ng/mL (0.00-0.029) 03/31/19 13:29 6.6 g/dL (6.3-8.2) 04/09/19 14:05 3.3 g/dL (3.9-5) L 04/09/19 14:05 1.0 % 04/09/19 14:05 Triglycerides 63 mg/dL (2-149) 04/01/19 04:51 Cholesterol 199 mg/dL (50-199) 04/01/19 04:51 99 mg/dL (50-130) 04/01/19 04:51 101 mg/dL (40-59) H 04/01/19 04:51 1.97 % 04/01/19 04:51 Amylase 141 units/L (27-131) H 03/31/19 21:26 TSH 2.930 mlU/mL (0.270-4.200) 03/31/19 13:29 Free T4 1.13 ng/dL (0.76-1.46) 03/31/19 13:29 Yellow (Yellow) 04/09/19 13:26 Clear (Clear) 04/09/19 13:26 7.0 (5.0-7.0) 04/09/19 13:26 Ur Specific [place] 1.009 (1.003-1.030) 04/09/19 13:26 <15 mg/dl mg/dL (Negative) 04/09/19 13:26 Neg mg/dL (Negative) 04/09/19 13:26 Neg mg/dL (Negative) 04/09/19 13:26 Neg (Negative) 04/09/19 13:26 Neg (Negative) 04/09/19 13:26 Neg (Negative) 04/09/19 13:26 2.0 mg/dL (<2.0) 04/09/19 13:26 Ur Leukocyte Esterase Neg (Negative) 04/09/19 13:26 < 1.0 /HPF (0.0-6.0) 04/09/19 13:26 2.0 /HPF (0.0-6.0) 04/09/19 13:26 U Epithel Cells (Auto) < 1.0 /HPF (0-13.0) 04/09/19 13:26 1+ /HPF (Negative) 04/09/19 13:26 Presumptive negative 03/31/19 17:20 Presumptive negative 03/31/19 17:20 Ur Barbiturates Screen Presumptive negative 03/31/19 17:20 Ur Phencyclidine Scrn Presumptive negative 03/31/19 17:20 Ur Amphetamines Screen Presumptive negative 03/31/19 17:20 U Benzodiazepines Scrn Presumptive negative 03/31/19 17:20 Presumptive negative 03/31/19 17:20 U Marijuana (THC) Screen Presumptive negative 03/31/19 17:20 Disclamer 03/31/19 17:20 Plasma/Serum Alcohol 0.13 % (0-0.07) H 03/31/19 13:29 Active Medications - Current Medications Current Medications: Generic Name Dose Route Start Last Admin Trade Name Freq PRN Reason Stop Dose Admin Acetaminophen 650 mg 03/31/19 20:39 04/09/19 13:19 Tylenol PO 650 mg Q4H PRN Administration Pain MILD(1-3)/Fever >100.5/BLOOM Lipase/Protease/Amylase 1 each 04/03/19 14:[address] 10,500 Unit FEEDTUBE PRN PRN For Clogged Feeding Tube Aspirin 325 mg 04/01/19 22:00 04/09/19 21:14 Aspirin PO 325 mg QDAY@2200 HERMILA Administration Atorvastatin Calcium 40 mg 03/31/19 22:00 04/09/19 21:14 Lipitor PO 40 mg QHS HERMILA Administration Chlordiazepoxide HCl 25 mg 04/02/19 10:00 04/10/19 04:46 Librium PO 25 mg Q6H HERMILA Administration Enoxaparin Sodium 40 mg 04/03/19 22:00 04/09/19 21:14 Lovenox SUB-Q 40 mg QDAY@2200 HERMILA Administration Famotidine 20 mg 04/01/19 10:00 04/09/19 21:15 Pepcid PO 20 mg BID HERMILA Administration Haloperidol Lactate 5 mg 03/31/19 20:33 04/04/19 05:35 Haldol IV 5 mg Q1H PRN Administration Unrespon. to mult. doses BZD's Sodium Chloride 1,000 mls @ 125 mls/hr 04/07/19 20:00 04/10/19 02:43 Nacl 0.9% 1000 Ml IV 125 mls/hr DIRECT HERMILA Administration Lorazepam 2 mg 03/31/19 20:33 04/08/19 08:42 Ativan IV 2 mg Q1H PRN Administration CIWA-Ar 8-15 Lorazepam 4 mg 03/31/19 20:33 04/04/19 05:26 Ativan IV 4 mg Q1H PRN Administration CIWA-Ar 16-25 Lorazepam 4 mg 03/31/19 20:33 04/03/19 07:20 Ativan IV 4 mg Q15MIN PRN Administration CIWA-Ar >25 Morphine Sulfate 2 mg 03/31/19 20:39 04/06/19 00:49 Morphine IV 2 mg Q4H PRN Administration Pain, Moderate (4-6) Ondansetron HCl 4 mg 03/31/19 20:39 Zofran IV Q8H PRN Nausea And Vomiting Quetiapine Fumarate 150 mg 04/03/19 15:00 04/09/19 21:15 Seroquel PO 150 mg BID HERMILA Administration Simple Syrup 15 ml 04/03/19 14:35 Simple Syrup FEEDTUBE PRN PRN Hypoglycemia Simple Syrup 30 ml 04/03/19 14:35 Simple Syrup FEEDTUBE PRN PRN Hypoglycemia Sodium Bicarbonate 325 mg 04/03/19 14:35 Sodium Bicarbonate FEEDTUBE PRN PRN For Clogged Feeding Tube Sodium Chloride 10 ml 03/31/19 22:00 04/09/19 22:38 Sodium Chloride Flush Syringe 10 Ml IV 10 ml BID HERMILA Administration Sodium Chloride 10 ml 03/31/19 20:39 Sodium Chloride Flush Syringe 10 Ml IV PRN PRN LINE FLUSH Nutrition/Malnutrition Assess - Dietary Evaluation Nutrition/Malnutrition Findings: Nutrition Notes Start: 04/03/19 14:21 Freq: Status: Active Protocol: Document 04/09/19 18:28 RM (Rec: 04/09/19 18:35 RM [id number]) Nutrition Notes Initial or Follow up Reassessment Other Pertinent Diagnosis Dysarthria, UTI, ETOH intoxication w/DTs, toxic metabolic encephalopathy Current Diet [facility] soft Labs/Tests Reviewed Pertinent Medications Reviewed Height 5 ft 6 in Weight 61.5 kg [place] Body Weight (kg) 64.54 BMI 21.9 Subjective/Other Information Pt asleep at time of visit. Per nurse pt was previously receiving TF and [facility] soft diet but is being advanced to [place] oral diet. Burn Absent Trauma Absent #1 Nutrition Diagnosis Inadequate oral intake Diagnosis Progress(for reassessment Continues documentation) Is patient on ventilator? No Is Patient Ambulatory and/or Out of Bed No REE-([place] [facility]-confined to bed) [phone] Calculation Used for Recommendations [place] Additional Notes Protein Needs: 52-65g (0.8-1g/ kg) Fluid Needs: 1 ml/kcal Nutrition Intervention Change Diet Order: Continue current Goal #1 Meet at least 75% of calorie and protein needs via PO intakes Anticipated Discharge Needs: Unable to determine at this time Follow-Up By: 04/11/19 Additional Comments Follow for PO intakes
[2019-04-10] MEDS: PEPCID PO SCH ×2 (10:20→21:12)
[2019-04-10] MEDS: SODIUM CHLORIDE FLUSH SYRINGE 10 ML IV SCH ×2 (10:20→21:13)
[2019-04-10] MEDS: ASPIRIN PO SCH (21:12)
[2019-04-10] MEDS: LOVENOX SUB-Q SCH (21:13)
[2019-04-11] MEDS ORDERED: APRESOLINE IV PRN (00:04)
[2019-04-11] MEDS: NACL 0.9% 1000 ML 1,000 ML IV SCH ×2 (04:15→14:26)
[2019-04-11] MEDS: LIBRIUM PO SCH ×3 (04:15→16:00)
[2019-04-11] MEDS ORDERED: ATIVAN PO PRN ×2 (08:00)
[2019-04-11] MEDS: PEPCID PO SCH ×2 (10:05→21:00)
[2019-04-11] MEDS: NORVASC PO SCH (10:06)
[2019-04-11] MEDS: SODIUM CHLORIDE FLUSH SYRINGE 10 ML IV SCH ×2 (10:06→21:01)
--- NOTE | 2019-04-11 11:52 | Progress Note ---
Assessment and Plan Alcohol intoxication with DTs Hyponatremia Hypokalemia Hypomagnesemia Dysarthria Toxic-metabolic encephalaopthy -Replace electrolytes as indicated -VTE prophylaxis -Blood pressure control and monitoring -Aspiration precautions -Alcohol counselling -Accuchecks with glycemic control, avoid hypoglycemia -Continue with [facility] protocol -Discharge planning Subjective Date of service: 04/11/19 Principal diagnosis: CVA,S/p TPA DT's Interval history: Patient is seen today for: Alcohol intoxication with DTs; Hyponatremia; Hy pokalemia; Hypomagnesemia; Dysarthria; Toxic-metabolic encephalopathy Seen and examined at bedside; 24hour events reviewed; nursing and respiratory care staff consulted; no adverse overnight events reported to me; No emesis or overt aspiration; in restraints; no overt hemodynamic decompensation More awake and alert, speaks Beninese only Denies any chest pain, no shortness of breath, no fevers or chills Objective Vital Signs - 12hr 04/11/19 04/11/19 04/11/19 00:33 00:41 06:19 Temperature 97.8 F 98.1 F Pulse Rate 90 55 L Respiratory 16 16 Rate Blood Pressure 151/85 101/45 177/94 O2 Sat by Pulse 90 97 Oximetry 04/11/19 06:45 Temperature Pulse Rate 55 L Respiratory Rate Blood Pressure 177/94 O2 Sat by Pulse Oximetry Constitutional: no acute distress, other (middle aged, thin HM, normocephalic and atraumatic with normal resp effort at rest) Eyes: non-icteric ENT: oropharynx dry Neck: supple, no lymphadenopathy, no JVD, other (no thyromegaly) Effort: normal Ascultation: Bilateral: clear Percussion: Bilateral: not dull Cardiovascular: regular rate and rhythm, other (tachycardia, S1,S2, no murmurs) Gastrointestinal: normoactive bowel sounds, soft, non-tender, non-distended, other (No palpable HSM) Integumentary: normal Extremities: no cyanosis, no edema, pulses normal, no ischemia or petechiae Neurologic: non-focal exam (grossly), pupils equal and round, motor strength normal and, other (oriented x3, obeys commands) Psychiatric: mood appropriate, affect normal CBC and BMP: 04/09/19 14:05 04/09/19 14:05 ABG, PT/INR, D-dimer: PT/INR, D-dimer PT 13.2 Sec. (12.2-14.9) 03/31/19 13:29 INR 1.03 (0.87-1.13) 03/31/19 13:29 Abnormal lab findings: Abnormal Labs 03/31/19 03/31/19 03/31/19 13:29 13:29 13:29 WBC MCHC 35 H RDW 12.9 L Plt Count Lymph % (Auto) 9.4 L [place] % (Auto) 12.4 H Lymph # 0.5 L [place] # Seg Neutrophils % 76.4 H Seg Neutrophils # Sodium 123 L Potassium 2.8 L* Chloride 73.7 L Carbon Dioxide BUN Creatinine Glucose 117 H Magnesium Total Bilirubin AST ALT Total Creatine Kinase 574 H Albumin HDL Cholesterol Amylase Urine WBC (Auto) Plasma/Serum Alcohol 03/31/19 03/31/19 03/31/19 13:29 13:29 17:20 WBC MCHC RDW Plt Count Lymph % (Auto) [place] % (Auto) Lymph # [place] # Seg Neutrophils % Seg Neutrophils # Sodium Potassium Chloride Carbon Dioxide BUN Creatinine Glucose Magnesium 1.60 L Total Bilirubin AST ALT Total Creatine Kinase Albumin HDL Cholesterol Amylase Urine WBC (Auto) 7.0 H Plasma/Serum Alcohol 0.13 H 03/31/19 04/01/19 04/01/19 21:26 04:51 04:51 WBC MCHC RDW 12.8 L Plt Count 103 L Lymph % (Auto) 9.4 L [place] % (Auto) 9.1 H Lymph # 0.5 L [place] # Seg Neutrophils % 78.6 H Seg Neutrophils # Sodium 134 L D Potassium 3.1 L Chloride 91.9 L Carbon Dioxide 31 H BUN Creatinine 0.5 L Glucose Magnesium Total Bilirubin 1.70 H AST 154 H ALT 73 H Total Creatine Kinase Albumin 3.8 L HDL Cholesterol 101 H Amylase 141 H Urine WBC (Auto) Plasma/Serum Alcohol 04/02/19 04/02/19 04/03/19 09:59 09:59 05:08 WBC MCHC RDW Plt Count Lymph % (Auto) [place] % (Auto) Lymph # [place] # Seg Neutrophils % Seg Neutrophils # Sodium Potassium 2.9 L* Chloride Carbon Dioxide BUN 8 L Creatinine 0.5 L Glucose Magnesium 1.20 L 1.30 L Total Bilirubin AST ALT Total Creatine Kinase Albumin HDL Cholesterol Amylase Urine WBC (Auto) Plasma/Serum Alcohol 04/03/19 04/04/19 04/04/19 08:56 14:00 14:00 WBC MCHC RDW Plt Count Lymph % (Auto) [place] % (Auto) Lymph # [place] # Seg Neutrophils % Seg Neutrophils # Sodium Potassium 3.0 L D Chloride 97.9 L Carbon Dioxide BUN Creatinine 0.5 L 0.5 L Glucose 112 H Magnesium 1.60 L Total Bilirubin AST ALT Total Creatine Kinase Albumin HDL Cholesterol Amylase Urine WBC (Auto) Plasma/Serum Alcohol 04/05/19 04/05/19 04/08/19 05:21 05:21 05:07 WBC MCHC RDW Plt Count Lymph % (Auto) [place] % (Auto) Lymph # [place] # Seg Neutrophils % Seg Neutrophils # Sodium Potassium 3.1 L 3.2 L Chloride 97.0 L Carbon Dioxide BUN Creatinine 0.6 L 0.5 L Glucose 119 H Magnesium 1.40 L Total Bilirubin AST 45 H ALT Total Creatine Kinase Albumin 3.8 L HDL Cholesterol Amylase Urine WBC (Auto) Plasma/Serum Alcohol 04/09/19 04/09/19 14:05 14:05 WBC 12.0 H MCHC RDW 12.7 L Plt Count Lymph % (Auto) 8.5 L [place] % (Auto) 11.7 H Lymph # 1.0 L [place] # 1.4 H Seg Neutrophils % 76.4 H Seg Neutrophils # 9.2 H Sodium 136 L Potassium 3.3 L Chloride Carbon Dioxide BUN 7 L Creatinine 0.5 L Glucose 128 H Magnesium Total Bilirubin AST ALT Total Creatine Kinase Albumin 3.3 L HDL Cholesterol Amylase Urine WBC (Auto) Plasma/Serum Alcohol Allied health notes reviewed: nursing
--- NOTE | 2019-04-11 12:41 | Progress Note ---
Assessment and Plan Assessment and plan: Acute encephalopathy Sec to DT's and severe ETOH dependence Still confused CIWA score this morning was 12 Delirium tremens Patient has high CIWA score and still getting benzos Cont CIWA protocol EtOH dependence Patient to be counseled with a dominican inerpretor when more alert and oriented He is mumbling Hypokalemia Supplemented Hypomagnesemia Supplemented multiple times Check Mg level again Hyponatremia Corrected Transaminitis Sec to ETOH Malnutrition of moderate degree Dietitian consulted Hypertension - patient is on amlodipine DVT prophylaxis On Lovenox and GI prophylaxis. All meds changed to Po. History Interval history: Patient was seen and evaluated this morning, patient was confused. I used cross tie turner #[id number] patient stated he was feeling much better, patient ate breakfast. Patient oriented to self but not to time and place. Hospitalist Physical - Physical exam Narrative exam: Not in cardiopulmonary distress. The patient appeared well nourished and normally developed. Vital signs as documented. Head exam is unremarkable. ENT; NG tube in place No scleral icterus . Neck is without jugular venous distension, thyromegaly, or carotid bruits. Lungs are clear to auscultation. Cardiac exam reveals regular rate and Rhythm. First and second heart sounds normal. No murmurs, rubs or gallops. Abdominal exam reveals normal bowel sounds, no masses, no organomegaly and no aortic enlargement. Extremities are nonedematous and both femoral and pedal pulses are normal. CHARTER REPRESENTATIVE: patiennt is is oriented to self but not to time and place. - Constitutional Vitals: Temp Pulse Resp BP Pulse Ox 98.0 F 101 H 22 90/58 98 04/11/19 12:15 04/11/19 12:15 04/11/19 12:15 04/11/19 12:15 04/11/19 12:15 General appearance: Present: severe distress, well-nourished Results - Labs CBC & Chem 7: 04/09/19 14:05 04/09/19 14:05 Labs: Laboratory Last Values WBC 12.0 K/mm3 (4.5-11.0) H 04/09/19 14:05 RBC 4.16 M/mm3 (3.65-5.03) 04/09/19 14:05 Hgb 12.8 gm/dl (11.8-15.2) 04/09/19 14:05 Hct 38.1 % (35.5-45.6) 04/09/19 14:05 MCV 91 fl (84-94) 04/09/19 14:05 MCH 31 pg (28-32) 04/09/19 14:05 MCHC 34 % (32-34) 04/09/19 14:05 RDW 12.7 % (13.2-15.2) L 04/09/19 14:05 Plt Count 278 K/mm3 (140-440) 04/09/19 14:05 Lymph % (Auto) 8.5 % (13.4-35.0) L 04/09/19 14:05 Carbon % (Auto) 11.7 % (0.0-7.3) H 04/09/19 14:05 Eos % (Auto) 2.5 % (0.0-4.3) 04/09/19 14:05 Baso % (Auto) 0.9 % (0.0-1.8) 04/09/19 14:05 Lymph # 1.0 K/mm3 (1.2-5.4) L 04/09/19 14:05 Carbon # 1.4 K/mm3 (0.0-0.8) H 04/09/19 14:05 Eos # 0.3 K/mm3 (0.0-0.4) 04/09/19 14:05 Baso # 0.1 K/mm3 (0.0-0.1) 04/09/19 14:05 Seg Neutrophils % 76.4 % (40.0-70.0) H 04/09/19 14:05 Seg Neutrophils # 9.2 K/mm3 (1.8-7.7) H 04/09/19 14:05 PT 13.2 Sec. (12.2-14.9) 03/31/19 13:29 INR 1.03 (0.87-1.13) 03/31/19 13:29 APTT 29.3 Sec. (24.2-36.6) 03/31/19 13:29 15.5 Sec. (15.1-19.6) 03/31/19 13:29 Sodium 136 mmol/L (137-145) L 04/09/19 14:05 Potassium 3.3 mmol/L (3.6-5.0) L 04/09/19 14:05 Chloride 101.6 mmol/L (98-107) 04/09/19 14:05 Carbon Dioxide 23 mmol/L (22-30) 04/09/19 14:05 15 mmol/L 04/09/19 14:05 BUN 7 mg/dL (9-20) L 04/09/19 14:05 0.5 mg/dL (0.8-1.5) L 04/09/19 14:05 Estimated GFR > 60 ml/min 04/09/19 14:05 14 % 04/09/19 14:05 Glucose 128 mg/dL (75-100) H 04/09/19 14:05 POC Glucose 100 (70-105) 03/31/19 13:55 5.1 % (4-6) 03/31/19 21:26 Calcium 8.5 mg/dL (8.4-10.2) 04/09/19 14:05 Phosphorus 4.00 mg/dL (2.5-4.5) 04/04/19 14:00 Magnesium 1.40 mg/dL (1.7-2.3) L 04/05/19 05:21 0.30 mg/dL (0.1-1.2) 04/09/19 14:05 AST 34 units/L (5-40) 04/09/19 14:05 ALT 31 units/L (7-56) 04/09/19 14:05 120 units/L (35-129) 04/09/19 14:05 48.0 umol/L (25-60) 03/31/19 21:26 574 units/L (55-170) H 03/31/19 13:29 < 0.010 ng/mL (0.00-0.029) 03/31/19 13:29 6.6 g/dL (6.3-8.2) 04/09/19 14:05 3.3 g/dL (3.9-5) L 04/09/19 14:05 1.0 % 04/09/19 14:05 Triglycerides 63 mg/dL (2-149) 04/01/19 04:51 Cholesterol 199 mg/dL (50-199) 04/01/19 04:51 99 mg/dL (50-130) 04/01/19 04:51 101 mg/dL (40-59) H 04/01/19 04:51 1.97 % 04/01/19 04:51 Amylase 141 units/L (27-131) H 03/31/19 21:26 TSH 2.930 mlU/mL (0.270-4.200) 03/31/19 13:29 Free T4 1.13 ng/dL (0.76-1.46) 03/31/19 13:29 Yellow (Yellow) 04/09/19 13:26 Clear (Clear) 04/09/19 13:26 7.0 (5.0-7.0) 04/09/19 13:26 Ur Specific [place] 1.009 (1.003-1.030) 04/09/19 13:26 <15 mg/dl mg/dL (Negative) 04/09/19 13:26 Neg mg/dL (Negative) 04/09/19 13:26 Neg mg/dL (Negative) 04/09/19 13:26 Neg (Negative) 04/09/19 13:26 Neg (Negative) 04/09/19 13:26 Neg (Negative) 04/09/19 13:26 2.0 mg/dL (<2.0) 04/09/19 13:26 Ur Leukocyte Esterase Neg (Negative) 04/09/19 13:26 < 1.0 /HPF (0.0-6.0) 04/09/19 13:26 2.0 /HPF (0.0-6.0) 04/09/19 13:26 U Epithel Cells (Auto) < 1.0 /HPF (0-13.0) 04/09/19 13:26 1+ /HPF (Negative) 04/09/19 13:26 Presumptive negative 03/31/19 17:20 Presumptive negative 03/31/19 17:20 Ur Barbiturates Screen Presumptive negative 03/31/19 17:20 Ur Phencyclidine Scrn Presumptive negative 03/31/19 17:20 Ur Amphetamines Screen Presumptive negative 03/31/19 17:20 U Benzodiazepines Scrn Presumptive negative 03/31/19 17:20 Presumptive negative 03/31/19 17:20 U Marijuana (THC) Screen Presumptive negative 03/31/19 17:20 Disclamer 03/31/19 17:20 Plasma/Serum Alcohol 0.13 % (0-0.07) H 03/31/19 13:29 Active Medications - Current Medications Current Medications: Generic Name Dose Route Start Last Admin Trade Name Freq PRN Reason Stop Dose Admin Acetaminophen 650 mg 03/31/19 20:39 04/09/19 13:19 Tylenol PO 650 mg Q4H PRN Administration Pain MILD(1-3)/Fever >100.5/BLOOM Amlodipine Besylate 10 mg 04/11/19 10:00 04/11/19 10:06 Norvasc PO 10 mg QDAY HERMILA Administration Lipase/Protease/Amylase 1 each 04/03/19 14:[address] 10,500 Unit FEEDTUBE PRN PRN For Clogged Feeding Tube Aspirin 325 mg 04/01/19 22:00 04/10/19 21:12 Aspirin PO 325 mg QDAY@2200 HERMILA Administration Atorvastatin Calcium 40 mg 03/31/19 22:00 04/10/19 21:12 Lipitor PO 40 mg QHS HERMILA Administration Chlordiazepoxide HCl 25 mg 04/02/19 10:00 04/11/19 10:04 Librium PO 25 mg Q6H HERMILA Administration Enoxaparin Sodium 40 mg 04/03/19 22:00 04/10/19 21:13 Lovenox SUB-Q 40 mg QDAY@2200 HERMILA Administration Famotidine 20 mg 04/01/19 10:00 04/11/19 10:05 Pepcid PO 20 mg BID HERMILA Administration Hydralazine HCl 10 mg 04/11/19 00:04 04/11/19 06:45 Apresoline IV 10 mg Q4HR PRN Administration Blood Pressure Sodium Chloride 1,000 mls @ 125 mls/hr 04/07/19 20:00 04/11/19 04:15 Nacl 0.9% 1000 Ml IV 125 mls/hr DIRECT HERMILA Administration Lorazepam 2 mg 04/11/19 08:00 Ativan PO Q1HR PRN CIWA-Ar 8-15 Lorazepam 4 mg 04/11/19 08:00 Ativan PO Q1HR PRN CIWA-Ar 16-25 Morphine Sulfate 2 mg 03/31/19 20:39 04/06/19 00:49 Morphine IV 2 mg Q4H PRN Administration Pain, Moderate (4-6) Ondansetron HCl 4 mg 03/31/19 20:39 Zofran IV Q8H PRN Nausea And Vomiting Quetiapine Fumarate 150 mg 04/03/19 15:00 04/11/19 10:05 Seroquel PO 150 mg BID HERMILA Administration Simple Syrup 15 ml 04/03/19 14:35 Simple Syrup FEEDTUBE PRN PRN Hypoglycemia Simple Syrup 30 ml 04/03/19 14:35 Simple Syrup FEEDTUBE PRN PRN Hypoglycemia Sodium Bicarbonate 325 mg 04/03/19 14:35 Sodium Bicarbonate FEEDTUBE PRN PRN For Clogged Feeding Tube Sodium Chloride 10 ml 03/31/19 22:00 04/11/19 10:06 Sodium Chloride Flush Syringe 10 Ml IV 10 ml BID HERMILA Administration Sodium Chloride 10 ml 03/31/19 20:39 Sodium Chloride Flush Syringe 10 Ml IV PRN PRN LINE FLUSH Nutrition/Malnutrition Assess - Dietary Evaluation Nutrition/Malnutrition Findings: Nutrition Notes Start: 04/03/19 14:21 Freq: Status: Active Protocol: Document 04/09/19 18:28 RM (Rec: 04/09/19 18:35 RM [id number]) Nutrition Notes Initial or Follow up Reassessment Other Pertinent Diagnosis Dysarthria, UTI, ETOH intoxication w/DTs, toxic metabolic encephalopathy Current Diet Mech soft Labs/Tests Reviewed Pertinent Medications Reviewed Height 5 ft 6 in Weight 61.5 kg [place] Body Weight (kg) 64.54 BMI 21.9 Subjective/Other Information Pt asleep at time of visit. Per nurse pt was previously receiving TF and Mech soft diet but is being advanced to [place] oral diet. Burn Absent Trauma Absent #1 Nutrition Diagnosis Inadequate oral intake Diagnosis Progress(for reassessment Continues documentation) Is patient on ventilator? No Is Patient Ambulatory and/or Out of Bed No REE-([place]-confined to bed) [phone] Calculation Used for Recommendations [place] Additional Notes Protein Needs: 52-65g (0.8-1g/ kg) Fluid Needs: 1 ml/kcal Nutrition Intervention Change Diet Order: Continue current Goal #1 Meet at least 75% of calorie and protein needs via PO intakes Anticipated Discharge Needs: Unable to determine at this time Follow-Up By: 04/11/19 Additional Comments Follow for PO intakes
[2019-04-11] MEDS: ASPIRIN PO SCH (21:00)
[2019-04-11] MEDS: LOVENOX SUB-Q SCH (21:01)
[2019-04-12] MEDS: NACL 0.9% 1000 ML 1,000 ML IV SCH ×3 (00:28→18:14)
[2019-04-12] MEDS: LIBRIUM PO SCH ×5 (00:28→21:45)
[2019-04-12] MEDS: SODIUM CHLORIDE FLUSH SYRINGE 10 ML IV SCH ×2 (10:09→21:46)
[2019-04-12] MEDS: PEPCID PO SCH ×2 (10:09→21:44)
[2019-04-12] MEDS: NORVASC PO SCH (10:09)
--- NOTE | 2019-04-12 13:34 | Progress Note ---
Assessment and Plan Assessment and plan: Acute encephalopathy Sec to DT's and severe ETOH dependence Still confused Ont to monitor CIWA score Delirium tremens Patient has high CIWA score and still getting benzos Cont CIWA protocol EtOH dependence Patient to be counseled with a japanese inerpretor when more alert and oriented Incomprehensible speech Hypokalemia Supplemented Hypomagnesemia Supplemented multiple times Check Mg level again Hyponatremia Corrected Transaminitis Sec to ETOH Malnutrition of moderate degree Dietitian consulted Hypertension - patient is on amlodipine DVT prophylaxis On Lovenox and GI prophylaxis. History Interval history: No new issues. Extremely agitated, requiring restraints Hospitalist Physical - Constitutional Vitals: Temp Pulse Resp BP Pulse Ox 98.0 F 63 14 171/95 96 04/12/19 11:46 04/12/19 11:46 04/12/19 11:46 04/12/19 11:46 04/12/19 11:46 General appearance: Present: severe distress, well-nourished - EENT Eyes: Present: PERRL, EOM intact ENT: hearing intact, clear oral mucosa, dentition normal - Neck Neck: Present: supple, normal ROM - Respiratory Respiratory effort: normal Respiratory: bilateral: CTA - Cardiovascular Rhythm: regular Heart Sounds: Present: S1 & S2. Absent: gallop, rub - Extremities Extremities: no ischemia, No edema, Full ROM - Abdominal General gastrointestinal: soft, non-tender, non-distended, normal bowel sounds - Integumentary Integumentary: Present: clear, warm, dry - Neurologic Neurologic: CNII-XII intact, moves all extremities Results - Labs CBC & Chem 7: 04/09/19 14:05 04/09/19 14:05 Labs: Laboratory Last Values WBC 12.0 K/mm3 (4.5-11.0) H 04/09/19 14:05 RBC 4.16 M/mm3 (3.65-5.03) 04/09/19 14:05 Hgb 12.8 gm/dl (11.8-15.2) 04/09/19 14:05 Hct 38.1 % (35.5-45.6) 04/09/19 14:05 MCV 91 fl (84-94) 04/09/19 14:05 MCH 31 pg (28-32) 04/09/19 14:05 MCHC 34 % (32-34) 04/09/19 14:05 RDW 12.7 % (13.2-15.2) L 04/09/19 14:05 Plt Count 278 K/mm3 (140-440) 04/09/19 14:05 Lymph % (Auto) 8.5 % (13.4-35.0) L 04/09/19 14:05 [place] % (Auto) 11.7 % (0.0-7.3) H 04/09/19 14:05 Eos % (Auto) 2.5 % (0.0-4.3) 04/09/19 14:05 Baso % (Auto) 0.9 % (0.0-1.8) 04/09/19 14:05 Lymph # 1.0 K/mm3 (1.2-5.4) L 04/09/19 14:05 [place] # 1.4 K/mm3 (0.0-0.8) H 04/09/19 14:05 Eos # 0.3 K/mm3 (0.0-0.4) 04/09/19 14:05 Baso # 0.1 K/mm3 (0.0-0.1) 04/09/19 14:05 Seg Neutrophils % 76.4 % (40.0-70.0) H 04/09/19 14:05 Seg Neutrophils # 9.2 K/mm3 (1.8-7.7) H 04/09/19 14:05 PT 13.2 Sec. (12.2-14.9) 03/31/19 13:29 INR 1.03 (0.87-1.13) 03/31/19 13:29 APTT 29.3 Sec. (24.2-36.6) 03/31/19 13:29 15.5 Sec. (15.1-19.6) 03/31/19 13:29 Sodium 136 mmol/L (137-145) L 04/09/19 14:05 Potassium 3.3 mmol/L (3.6-5.0) L 04/09/19 14:05 Chloride 101.6 mmol/L (98-107) 04/09/19 14:05 Carbon Dioxide 23 mmol/L (22-30) 04/09/19 14:05 15 mmol/L 04/09/19 14:05 BUN 7 mg/dL (9-20) L 04/09/19 14:05 0.5 mg/dL (0.8-1.5) L 04/09/19 14:05 Estimated GFR > 60 ml/min 04/09/19 14:05 14 % 04/09/19 14:05 Glucose 128 mg/dL (75-100) H 04/09/19 14:05 POC Glucose 100 (70-105) 03/31/19 13:55 5.1 % (4-6) 03/31/19 21:26 Calcium 8.5 mg/dL (8.4-10.2) 04/09/19 14:05 Phosphorus 4.00 mg/dL (2.5-4.5) 04/04/19 14:00 Magnesium 1.40 mg/dL (1.7-2.3) L 04/05/19 05:21 0.30 mg/dL (0.1-1.2) 04/09/19 14:05 AST 34 units/L (5-40) 04/09/19 14:05 ALT 31 units/L (7-56) 04/09/19 14:05 120 units/L (35-129) 04/09/19 14:05 48.0 umol/L (25-60) 03/31/19 21:26 574 units/L (55-170) H 03/31/19 13:29 < 0.010 ng/mL (0.00-0.029) 03/31/19 13:29 6.6 g/dL (6.3-8.2) 04/09/19 14:05 3.3 g/dL (3.9-5) L 04/09/19 14:05 1.0 % 04/09/19 14:05 Triglycerides 63 mg/dL (2-149) 04/01/19 04:51 Cholesterol 199 mg/dL (50-199) 04/01/19 04:51 99 mg/dL (50-130) 04/01/19 04:51 101 mg/dL (40-59) H 04/01/19 04:51 1.97 % 04/01/19 04:51 Amylase 141 units/L (27-131) H 03/31/19 21:26 TSH 2.930 mlU/mL (0.270-4.200) 03/31/19 13:29 Free T4 1.13 ng/dL (0.76-1.46) 03/31/19 13:29 Yellow (Yellow) 04/09/19 13:26 Clear (Clear) 04/09/19 13:26 7.0 (5.0-7.0) 04/09/19 13:26 Ur Specific [place] 1.009 (1.003-1.030) 04/09/19 13:26 <15 mg/dl mg/dL (Negative) 04/09/19 13:26 Neg mg/dL (Negative) 04/09/19 13:26 Neg mg/dL (Negative) 04/09/19 13:26 Neg (Negative) 04/09/19 13:26 Neg (Negative) 04/09/19 13:26 Neg (Negative) 04/09/19 13:26 2.0 mg/dL (<2.0) 04/09/19 13:26 Ur Leukocyte Esterase Neg (Negative) 04/09/19 13:26 < 1.0 /HPF (0.0-6.0) 04/09/19 13:26 2.0 /HPF (0.0-6.0) 04/09/19 13:26 U Epithel Cells (Auto) < 1.0 /HPF (0-13.0) 04/09/19 13:26 1+ /HPF (Negative) 04/09/19 13:26 Presumptive negative 03/31/19 17:20 Presumptive negative 03/31/19 17:20 Ur Barbiturates Screen Presumptive negative 03/31/19 17:20 Ur Phencyclidine Scrn Presumptive negative 03/31/19 17:20 Ur Amphetamines Screen Presumptive negative 03/31/19 17:20 U Benzodiazepines Scrn Presumptive negative 03/31/19 17:20 Presumptive negative 03/31/19 17:20 U Marijuana (THC) Screen Presumptive negative 03/31/19 17:20 Disclamer 03/31/19 17:20 Plasma/Serum Alcohol 0.13 % (0-0.07) H 03/31/19 13:29 Active Medications - Current Medications Current Medications: Generic Name Dose Route Start Last Admin Trade Name Freq PRN Reason Stop Dose Admin Acetaminophen 650 mg 03/31/19 20:39 04/09/19 13:19 Tylenol PO 650 mg Q4H PRN Administration Pain MILD(1-3)/Fever >100.5/BLOOM Amlodipine Besylate 10 mg 04/11/19 10:00 04/12/19 10:09 Norvasc PO 10 mg QDAY HERMILA Administration Lipase/Protease/Amylase 1 each 04/03/19 14:35 Pancreazar [place] 10,500 Unit FEEDTUBE PRN PRN For Clogged Feeding Tube Aspirin 325 mg 04/01/19 22:00 04/11/19 21:00 Aspirin PO 325 mg QDAY@2200 HERMILA Administration Atorvastatin Calcium 40 mg 03/31/19 22:00 04/11/19 21:01 Lipitor PO 40 mg QHS HERMILA Administration Chlordiazepoxide HCl 25 mg 04/02/19 10:00 04/12/19 10:09 Librium PO 25 mg Q6H HERMILA Administration Enoxaparin Sodium 40 mg 04/03/19 22:00 04/11/19 21:01 Lovenox SUB-Q 40 mg QDAY@2200 HERMILA Administration Famotidine 20 mg 04/01/19 10:00 04/12/19 10:09 Pepcid PO 20 mg BID HERMILA Administration Hydralazine HCl 10 mg 04/11/19 00:04 04/11/19 06:45 Apresoline IV 10 mg Q4HR PRN Administration Blood Pressure Sodium Chloride 1,000 mls @ 125 mls/hr 04/07/19 20:00 04/12/19 10:09 Nacl 0.9% 1000 Ml IV 125 mls/hr DIRECT HERMILA Administration Lorazepam 2 mg 04/11/19 08:00 04/11/19 17:27 Ativan PO 2 mg Q1HR PRN Administration CIWA-Ar 8-15 Lorazepam 4 mg 04/11/19 08:00 Ativan PO Q1HR PRN CIWA-Ar 16-25 Morphine Sulfate 2 mg 03/31/19 20:39 04/06/19 00:49 Morphine IV 2 mg Q4H PRN Administration Pain, Moderate (4-6) Ondansetron HCl 4 mg 03/31/19 20:39 Zofran IV Q8H PRN Nausea And Vomiting Quetiapine Fumarate 150 mg 04/03/19 15:00 04/12/19 10:08 Seroquel PO 150 mg BID HERMILA Administration Simple Syrup 15 ml 04/03/19 14:35 Simple Syrup FEEDTUBE PRN PRN Hypoglycemia Simple Syrup 30 ml 04/03/19 14:35 Simple Syrup FEEDTUBE PRN PRN Hypoglycemia Sodium Bicarbonate 325 mg 04/03/19 14:35 Sodium Bicarbonate FEEDTUBE PRN PRN For Clogged Feeding Tube Sodium Chloride 10 ml 03/31/19 22:00 04/12/19 10:09 Sodium Chloride Flush Syringe 10 Ml IV 10 ml BID HERMILA Administration Sodium Chloride 10 ml 03/31/19 20:39 Sodium Chloride Flush Syringe 10 Ml IV PRN PRN LINE FLUSH Nutrition/Malnutrition Assess - Dietary Evaluation Nutrition/Malnutrition Findings: Nutrition Notes Start: 04/03/19 14:21 Freq: Status: Active Protocol: Document 04/11/19 18:17 RM (Rec: 04/11/19 18:21 RM [id number]) Nutrition Notes Initial or Follow up Reassessment Other Pertinent Diagnosis Dysarthria, UTI, ETOH intoxication w/DTs, toxic metabolic encephalopathy Current Diet [facility] soft Labs/Tests Reviewed Pertinent Medications Reviewed Height 5 ft 6 in Weight 61.5 kg [place] Body Weight (kg) 64.54 BMI 21.9 Subjective/Other Information Per nurse pt ate 80% of breakfast and lunch. Percent of energy/protein needs met: 100%/100% Burn Absent Trauma Absent #1 Nutrition Diagnosis Inadequate oral intake As Evidenced by Signs and Symptoms pt meeting 100% of calorie and protein needs Diagnosis Progress(for reassessment Resolved documentation) Is patient on ventilator? No Is Patient Ambulatory and/or Out of Bed No REE-([facility]-confined to bed) [phone] Calculation Used for Recommendations [facility] Additional Notes Protein Needs: 52-65g (0.8-1g/ kg) Fluid Needs: 1 ml/kcal Nutrition Intervention Change Diet Order: Continue current Goal #1 Continue to meet at least 75% of calorie and protein needs via PO intakes Anticipated Discharge Needs: [facility] soft diet Revisit per MD consult or patient Sign Off request:
[2019-04-12] MEDS: ASPIRIN PO SCH (21:44)
[2019-04-12] MEDS: LOVENOX SUB-Q SCH (21:46)
[2019-04-13] MEDS: NACL 0.9% 1000 ML 1,000 ML IV SCH ×2 (01:58→10:18)
[2019-04-13] MEDS: LIBRIUM PO SCH ×2 (03:47→10:17)
[2019-04-13] MEDS: PEPCID PO SCH (10:17)
[2019-04-13] MEDS: NORVASC PO SCH (10:17)
[2019-04-13] MEDS: SODIUM CHLORIDE FLUSH SYRINGE 10 ML IV SCH (10:19)
--- NOTE | 2019-04-13 12:04 | Discharge Summary ---
Providers - Providers Date of Admission: 03/31/19 14:23 Attending physician: STEPHANIE ABREU MD 03/31/19 20:39 Consult to Physician [CONS] Routine Comment: Consulting Provider: JONO LARKIN Physician Instructions: Reason For Exam: CVA 03/31/19 20:41 Occupational Therapy Evaluate and Treat [CONS] Routine Comment: Reason For Exam: Neuro deficits Physical Therapy Evaluation and Treat [CONS] Routine Comment: Reason For Exam: Neuro deficits 04/02/19 09:57 Consult to Physician [CONS] Stat Comment: Consulting Provider: KAMAR GARCIA Physician Instructions: Reason For Exam: Stroke/ETOH 04/06/19 11:01 Speech Therapy Evaluation and Treat [CONS] Routine Reason For Exam: pt. wants to eat, he was on TF [facility]: [facility] Hospital course: 53-year-old man who presented to the hospital with dysarthria, and diffuse muscle cramps. He was found to have delirium tremens. He was treated with CIWA protocol, his electrolytes were repleted. Muscle cramps are most likely due to hypokalemia and hypomagnesemia. The patient clinically improved, but is confused at baseline. He is out of the window for withdrawal and no longer requiring Ativan . The patient does sundowning get confused at times. 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 Brain MRI was negative for acute stroke -Preventative health counseling performed 17 minutes Diagnoses Alcohol dependence Delirium tremens Alcohol withdrawal Hypokalemia Hypomagnesemia Moderate malnutrition Transaminitis Hyponatremia CVA was ruled out Disposition: - TO HOME OR SELFCARE Time spent for discharge: 35 minutes Core Measure Documentation - Palliative Care Palliative Care/ Comfort Measures: Not Applicable - Core Measures Any of the following diagnoses?: none Exam - Constitutional Vitals: Temp Pulse Resp BP Pulse Ox 97.5 F L 65 18 145/90 98 04/13/19 04:16 04/13/19 04:16 04/13/19 04:16 04/13/19 04:16 04/13/19 04:16 General appearance: Present: no acute distress, well-nourished - EENT Eyes: Present: PERRL ENT: hearing intact, clear oral mucosa - Neck Neck: Present: supple, normal ROM - Respiratory Respiratory effort: normal Respiratory: bilateral: CTA - Cardiovascular Heart Sounds: Present: S1 & S2. Absent: rub, click - Extremities Extremities: pulses symmetrical, No edema Peripheral Pulses: within normal limits - Abdominal General gastrointestinal: Present: soft, non-tender, non-distended, normal bowel sounds Male genitourinary: Present: normal - Integumentary Integumentary: Present: clear, warm, dry - Musculoskeletal Musculoskeletal: gait normal, strength equal bilaterally - Psychiatric Psychiatric: appropriate mood/affect, no intact judgment & insight - Neurologic Neurologic: CNII-XII intact, moves all extremities Plan Activity: no restrictions [facility]Primary Care Provider[facility] - 3-5 Days Prescriptions: Folic Acid [Folvite] 1 mg PO QDAY #30 tablet amLODIPine [Norvasc] 10 mg PO QDAY #30 tablet Thiamine [Vitamin B-1] 100 mg PO QDAY #30 tablet
[2019-04-13 13:06] VITALS: BP 124/76
--- NOTE | 2019-04-13 13:50 | Progress Note ---
Assessment and Plan Assessment and plan: 53-year-old man who presented to the hospital with dysarthria, and diffuse muscle cramps. He was found to have delirium tremens. He was treated with CIWA protocol, his electrolytes were repleted. Muscle cramps are most likely due to hypokalemia and hypomagnesemia. The patient clinically improved, but is confused at baseline. He is out of the window for withdrawal and no longer requiring Ativan . The patient does sundowning get confused at times. 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 Brain MRI was negative for acute stroke -Preventative health counseling performed 17 minutes -Patient is still confused today, discontinue Seroquel and Librium, added folate and B1 Diagnoses Acute metabolic encephalopathy Alcohol dependence Delirium tremens Alcohol withdrawal Hypokalemia Hypomagnesemia Moderate malnutrition Transaminitis Hyponatremia CVA was ruled out History Interval history: Has been confused and somnolent per nursing staff Review of systems Constitutional: No fevers, no malaise, no joint pains CVS: No chest pain, no orthopnea, no dyspnea on exertion, no pedal edema GI: No abdominal pain, no diarrhea, no vomiting, no constipation Respiratory: no wheezing, no coughing Hospitalist Physical - Physical exam Narrative exam: General.: Appears well, no distress, nontoxic HEENT: Moist mucous membranes, extraocular muscles intact, no lymphadenopathy Neck: supple Cardiac: S1-S2 heard Lungs: clear to auscultation bilaterally Abdomen: soft , nontender, nondistended, bowel sounds positive Extremities: no edema clubbing or cyanosis Skin: no rash or lesions Neurologic: no gross focal deficits Psych: calm, and cooperative, but confused - Constitutional Vitals: Temp Pulse Resp BP Pulse Ox 97.9 F 77 16 124/76 96 04/13/19 12:06 04/13/19 12:06 04/13/19 12:06 04/13/19 12:06 04/13/19 12:06 General appearance: Present: no acute distress, well-nourished Results - Labs CBC & Chem 7: 04/09/19 14:05 04/09/19 14:05 Labs: Laboratory Last Values WBC 12.0 K/mm3 (4.5-11.0) H 04/09/19 14:05 RBC 4.16 M/mm3 (3.65-5.03) 04/09/19 14:05 Hgb 12.8 gm/dl (11.8-15.2) 04/09/19 14:05 Hct 38.1 % (35.5-45.6) 04/09/19 14:05 MCV 91 fl (84-94) 04/09/19 14:05 MCH 31 pg (28-32) 04/09/19 14:05 MCHC 34 % (32-34) 04/09/19 14:05 RDW 12.7 % (13.2-15.2) L 04/09/19 14:05 Plt Count 278 K/mm3 (140-440) 04/09/19 14:05 Lymph % (Auto) 8.5 % (13.4-35.0) L 04/09/19 14:05 [place] % (Auto) 11.7 % (0.0-7.3) H 04/09/19 14:05 Eos % (Auto) 2.5 % (0.0-4.3) 04/09/19 14:05 Baso % (Auto) 0.9 % (0.0-1.8) 04/09/19 14:05 Lymph # 1.0 K/mm3 (1.2-5.4) L 04/09/19 14:05 [place] # 1.4 K/mm3 (0.0-0.8) H 04/09/19 14:05 Eos # 0.3 K/mm3 (0.0-0.4) 04/09/19 14:05 Baso # 0.1 K/mm3 (0.0-0.1) 04/09/19 14:05 Seg Neutrophils % 76.4 % (40.0-70.0) H 04/09/19 14:05 Seg Neutrophils # 9.2 K/mm3 (1.8-7.7) H 04/09/19 14:05 PT 13.2 Sec. (12.2-14.9) 03/31/19 13:29 INR 1.03 (0.87-1.13) 03/31/19 13:29 APTT 29.3 Sec. (24.2-36.6) 03/31/19 13:29 15.5 Sec. (15.1-19.6) 03/31/19 13:29 Sodium 136 mmol/L (137-145) L 04/09/19 14:05 Potassium 3.3 mmol/L (3.6-5.0) L 04/09/19 14:05 Chloride 101.6 mmol/L (98-107) 04/09/19 14:05 Carbon Dioxide 23 mmol/L (22-30) 04/09/19 14:05 15 mmol/L 04/09/19 14:05 BUN 7 mg/dL (9-20) L 04/09/19 14:05 0.5 mg/dL (0.8-1.5) L 04/09/19 14:05 Estimated GFR > 60 ml/min 04/09/19 14:05 14 % 04/09/19 14:05 Glucose 128 mg/dL (75-100) H 04/09/19 14:05 POC Glucose 100 (70-105) 03/31/19 13:55 5.1 % (4-6) 03/31/19 21:26 Calcium 8.5 mg/dL (8.4-10.2) 04/09/19 14:05 Phosphorus 4.00 mg/dL (2.5-4.5) 04/04/19 14:00 Magnesium 1.40 mg/dL (1.7-2.3) L 04/05/19 05:21 0.30 mg/dL (0.1-1.2) 04/09/19 14:05 AST 34 units/L (5-40) 04/09/19 14:05 ALT 31 units/L (7-56) 04/09/19 14:05 120 units/L (35-129) 04/09/19 14:05 48.0 umol/L (25-60) 03/31/19 21:26 574 units/L (55-170) H 03/31/19 13:29 < 0.010 ng/mL (0.00-0.029) 03/31/19 13:29 6.6 g/dL (6.3-8.2) 04/09/19 14:05 3.3 g/dL (3.9-5) L 04/09/19 14:05 1.0 % 04/09/19 14:05 Triglycerides 63 mg/dL (2-149) 04/01/19 04:51 Cholesterol 199 mg/dL (50-199) 04/01/19 04:51 99 mg/dL (50-130) 04/01/19 04:51 101 mg/dL (40-59) H 04/01/19 04:51 1.97 % 04/01/19 04:51 Amylase 141 units/L (27-131) H 03/31/19 21:26 TSH 2.930 mlU/mL (0.270-4.200) 03/31/19 13:29 Free T4 1.13 ng/dL (0.76-1.46) 03/31/19 13:29 Yellow (Yellow) 04/09/19 13:26 Clear (Clear) 04/09/19 13:26 7.0 (5.0-7.0) 04/09/19 13:26 Ur Specific [place] 1.009 (1.003-1.030) 04/09/19 13:26 <15 mg/dl mg/dL (Negative) 04/09/19 13:26 Neg mg/dL (Negative) 04/09/19 13:26 Neg mg/dL (Negative) 04/09/19 13:26 Neg (Negative) 04/09/19 13:26 Neg (Negative) 04/09/19 13:26 Neg (Negative) 04/09/19 13:26 2.0 mg/dL (<2.0) 04/09/19 13:26 Ur Leukocyte Esterase Neg (Negative) 04/09/19 13:26 < 1.0 /HPF (0.0-6.0) 04/09/19 13:26 2.0 /HPF (0.0-6.0) 04/09/19 13:26 U Epithel Cells (Auto) < 1.0 /HPF (0-13.0) 04/09/19 13:26 1+ /HPF (Negative) 04/09/19 13:26 Presumptive negative 03/31/19 17:20 Presumptive negative 03/31/19 17:20 Ur Barbiturates Screen Presumptive negative 03/31/19 17:20 Ur Phencyclidine Scrn Presumptive negative 03/31/19 17:20 Ur Amphetamines Screen Presumptive negative 03/31/19 17:20 U Benzodiazepines Scrn Presumptive negative 03/31/19 17:20 Presumptive negative 03/31/19 17:20 U Marijuana (THC) Screen Presumptive negative 03/31/19 17:20 Disclamer 03/31/19 17:20 Plasma/Serum Alcohol 0.13 % (0-0.07) H 03/31/19 13:29 Active Medications - Current Medications Current Medications: Generic Name Dose Route Start Last Admin Trade Name Freq PRN Reason Stop Dose Admin Acetaminophen 650 mg 03/31/19 20:39 04/09/19 13:19 Tylenol PO 650 mg Q4H PRN Administration Pain MILD(1-3)/Fever >100.5/BLOOM Amlodipine Besylate 10 mg 04/11/19 10:00 04/13/19 10:17 Norvasc PO 10 mg QDAY HERMILA Administration Lipase/Protease/Amylase 1 each 04/03/19 14:[address] 10,500 Unit FEEDTUBE PRN PRN For Clogged Feeding Tube Aspirin 325 mg 04/01/19 22:00 04/12/19 21:44 Aspirin PO 325 mg QDAY@2200 HERMILA Administration Atorvastatin Calcium 40 mg 03/31/19 22:00 04/12/19 21:44 Lipitor PO 40 mg QHS HERMILA Administration Chlordiazepoxide HCl 25 mg 04/02/19 10:00 04/13/19 10:17 Librium PO 25 mg Q6H HERMILA Administration Enoxaparin Sodium 40 mg 04/03/19 22:00 04/12/19 21:46 Lovenox SUB-Q 40 mg QDAY@2200 HERMILA Administration Famotidine 20 mg 04/01/19 10:00 04/13/19 10:17 Pepcid PO 20 mg BID HERMILA Administration Hydralazine HCl 10 mg 04/11/19 00:04 04/11/19 06:45 Apresoline IV 10 mg Q4HR PRN Administration Blood Pressure Lorazepam 2 mg 04/11/19 08:00 04/11/19 17:27 Ativan PO 2 mg Q1HR PRN Administration CIWA-Ar 8-15 Lorazepam 4 mg 04/11/19 08:00 Ativan PO Q1HR PRN CIWA-Ar 16-25 Ondansetron HCl 4 mg 03/31/19 20:39 Zofran IV Q8H PRN Nausea And Vomiting Simple Syrup 15 ml 04/03/19 14:35 Simple Syrup FEEDTUBE PRN PRN Hypoglycemia Simple Syrup 30 ml 04/03/19 14:35 Simple Syrup FEEDTUBE PRN PRN Hypoglycemia Sodium Bicarbonate 325 mg 04/03/19 14:35 Sodium Bicarbonate FEEDTUBE PRN PRN For Clogged Feeding Tube Sodium Chloride 10 ml 03/31/19 22:00 04/13/19 10:19 Sodium Chloride Flush Syringe 10 Ml IV 10 ml BID HERMILA Administration Sodium Chloride 10 ml 03/31/19 20:39 Sodium Chloride Flush Syringe 10 Ml IV PRN PRN LINE FLUSH Nutrition/Malnutrition Assess - Dietary Evaluation Nutrition/Malnutrition Findings: Nutrition Notes Start: 04/03/19 14:21 Freq: Status: Active Protocol: Document 04/11/19 18:17 RM (Rec: 04/11/19 18:21 RM [id number]) Nutrition Notes Initial or Follow up Reassessment Other Pertinent Diagnosis Dysarthria, UTI, ETOH intoxication w/DTs, toxic metabolic encephalopathy Current Diet [facility] soft Labs/Tests Reviewed Pertinent Medications Reviewed Height 5 ft 6 in Weight 61.5 kg [place] Body Weight (kg) 64.54 BMI 21.9 Subjective/Other Information Per nurse pt ate 80% of breakfast and lunch. Percent of energy/protein needs met: 100%/100% Burn Absent Trauma Absent #1 Nutrition Diagnosis Inadequate oral intake As Evidenced by Signs and Symptoms pt meeting 100% of calorie and protein needs Diagnosis Progress(for reassessment Resolved documentation) Is patient on ventilator? No Is Patient Ambulatory and/or Out of Bed No REE-([facility]-confined to bed) [phone] Calculation Used for Recommendations [facility] Additional Notes Protein Needs: 52-65g (0.8-1g/ kg) Fluid Needs: 1 ml/kcal Nutrition Intervention Change Diet Order: Continue current Goal #1 Continue to meet at least 75% of calorie and protein needs via PO intakes Anticipated Discharge Needs: [facility] soft diet Revisit per MD consult or patient Sign Off request:
--- NOTE | 2019-04-13 14:04 | Progress Note ---
Assessment and Plan Alcohol intoxication with DTs Hyponatremia Hypokalemia Hypomagnesemia Dysarthria Toxic-metabolic encephalopathy - continue scheduled librium, CIWA protocol - continue seroquel with slow taper - continue tube feeds as tolerated - Replace electrolytes as indicated - VTE prophylaxis - Blood pressure control and monitoring - continue aspiration precautions - Alcohol counseling once he is able to actively participate in the discussion - continue accuchecks with glycemic control per SSI (avoid hypoglycemia) - Monitor for bleeding. ... re-evaluate prn at this point Subjective Date of service: 04/13/19 Principal diagnosis: Alcohol withdrawal with DTs; Dysarthria; Toxic-metabolic encephalopathy Interval history: Patient is seen today for: Alcohol intoxication with DTs; Hyponatremia; Hypokalemia; Hypomagnesemia; Dysarthria; Toxic-metabolic encephalopathy Seen and examined at bedside; 24hour events reviewed; nursing and respiratory care staff consulted; no adverse overnight events reported to me; resting peacefully in bed; no new issues Objective Vital Signs - 12hr 04/13/19 04/13/19 04:16 12:06 Temperature 97.5 F L 97.9 F Pulse Rate 65 77 Respiratory 18 16 Rate Blood Pressure 145/90 124/76 O2 Sat by Pulse 98 96 Oximetry Constitutional: appears uncomfortable, other (middle aged, thin HM, normocephalic and atraumatic with mildly increased resp effort at rest) Eyes: non-icteric ENT: oropharynx moist Neck: supple, no lymphadenopathy, no JVD, other (no thyromegaly) Effort: normal Ascultation: Bilateral: clear Percussion: Bilateral: not dull Cardiovascular: regular rate and rhythm, other (tacycardia, S1,S2, no murmurs) Gastrointestinal: normoactive bowel sounds, soft, non-tender, non-distended, other (No palpable HSM) Integumentary: normal Extremities: no cyanosis, no edema, pulses normal, no ischemia or petechiae Neurologic: non-focal exam (grossly), pupils equal and round, unable to assess Psychiatric: other (agitation on and off with somnolence) CBC and BMP: 04/09/19 14:05 04/09/19 14:05 ABG, PT/INR, D-dimer: PT/INR, D-dimer PT 13.2 Sec. (12.2-14.9) 03/31/19 13:29 INR 1.03 (0.87-1.13) 03/31/19 13:29 Abnormal lab findings: Abnormal Labs 03/31/19 03/31/19 03/31/19 13:29 13:29 13:29 WBC MCHC 35 H RDW 12.9 L Plt Count Lymph % (Auto) 9.4 L [place] % (Auto) 12.4 H Lymph # 0.5 L [place] # Seg Neutrophils % 76.4 H Seg Neutrophils # Sodium 123 L Potassium 2.8 L* Chloride 73.7 L Carbon Dioxide BUN Creatinine Glucose 117 H Magnesium Total Bilirubin AST ALT Total Creatine Kinase 574 H Albumin HDL Cholesterol Amylase Urine WBC (Auto) Plasma/Serum Alcohol 03/31/19 03/31/19 03/31/19 13:29 13:29 17:20 WBC MCHC RDW Plt Count Lymph % (Auto) [place] % (Auto) Lymph # [place] # Seg Neutrophils % Seg Neutrophils # Sodium Potassium Chloride Carbon Dioxide BUN Creatinine Glucose Magnesium 1.60 L Total Bilirubin AST ALT Total Creatine Kinase Albumin HDL Cholesterol Amylase Urine WBC (Auto) 7.0 H Plasma/Serum Alcohol 0.13 H 03/31/19 04/01/19 04/01/19 21:26 04:51 04:51 WBC MCHC RDW 12.8 L Plt Count 103 L Lymph % (Auto) 9.4 L [place] % (Auto) 9.1 H Lymph # 0.5 L [place] # Seg Neutrophils % 78.6 H Seg Neutrophils # Sodium 134 L D Potassium 3.1 L Chloride 91.9 L Carbon Dioxide 31 H BUN Creatinine 0.5 L Glucose Magnesium Total Bilirubin 1.70 H AST 154 H ALT 73 H Total Creatine Kinase Albumin 3.8 L HDL Cholesterol 101 H Amylase 141 H Urine WBC (Auto) Plasma/Serum Alcohol 04/02/19 04/02/19 04/03/19 09:59 09:59 05:08 WBC MCHC RDW Plt Count Lymph % (Auto) [place] % (Auto) Lymph # [place] # Seg Neutrophils % Seg Neutrophils # Sodium Potassium 2.9 L* Chloride Carbon Dioxide BUN 8 L Creatinine 0.5 L Glucose Magnesium 1.20 L 1.30 L Total Bilirubin AST ALT Total Creatine Kinase Albumin HDL Cholesterol Amylase Urine WBC (Auto) Plasma/Serum Alcohol 06/27/19 06/28/19 06/28/19 08:56 14:00 14:00 WBC MCHC RDW Plt Count Lymph % (Auto) [place] % (Auto) Lymph # [place] # Seg Neutrophils % Seg Neutrophils # Sodium Potassium 3.0 L D Chloride 97.9 L Carbon Dioxide BUN Creatinine 0.5 L 0.5 L Glucose 112 H Magnesium 1.60 L Total Bilirubin AST ALT Total Creatine Kinase Albumin HDL Cholesterol Amylase Urine WBC (Auto) Plasma/Serum Alcohol 04/05/19 04/05/19 04/08/19 05:21 05:21 05:07 WBC MCHC RDW Plt Count Lymph % (Auto) [place] % (Auto) Lymph # [place] # Seg Neutrophils % Seg Neutrophils # Sodium Potassium 3.1 L 3.2 L Chloride 97.0 L Carbon Dioxide BUN Creatinine 0.6 L 0.5 L Glucose 119 H Magnesium 1.40 L Total Bilirubin AST 45 H ALT Total Creatine Kinase Albumin 3.8 L HDL Cholesterol Amylase Urine WBC (Auto) Plasma/Serum Alcohol 04/09/19 04/09/19 14:05 14:05 WBC 12.0 H MCHC RDW 12.7 L Plt Count Lymph % (Auto) 8.5 L [place] % (Auto) 11.7 H Lymph # 1.0 L [place] # 1.4 H Seg Neutrophils % 76.4 H Seg Neutrophils # 9.2 H Sodium 136 L Potassium 3.3 L Chloride Carbon Dioxide BUN 7 L Creatinine 0.5 L Glucose 128 H Magnesium Total Bilirubin AST ALT Total Creatine Kinase Albumin 3.3 L HDL Cholesterol Amylase Urine WBC (Auto) Plasma/Serum Alcohol Allied health notes reviewed: nursing
[2019-04-13] MEDS ORDERED: FOLVITE PO SCH (15:00)
[2019-04-13] MEDS ORDERED: VITAMIN B-1 PO SCH (15:00)
== END 2019-04-13 17:12 | disposition home or self-care (01) | DRG 640 ==
LOC: ED 13:11 → CC1 14:23 → 3A 04-04 18:30
PROVIDERS: ADMIT Internal Medicine; ATTEND Internal Medicine
DX: E87.6 Hypokalemia (principal); G92 Toxic encephalopathy; F10.231 Alcohol dependence with withdrawal delirium; N39.0 Urinary tract infection, site not specified; E44.0 Moderate protein-calorie malnutrition; E87.1 Hypo-osmolality and hyponatremia; R47.1 Dysarthria and anarthria; R74.0 Nonspecific elevation of levels of transaminase and lactic acid dehydrogenase [LDH]; F17.200 Nicotine dependence, unspecified, uncomplicated; R25.2 Cramp and spasm; E83.42 Hypomagnesemia; Z72.89 Other problems related to lifestyle; Z68.23 Body mass index [BMI] 23.0-23.9, adult
CPT/HCPCS: 36415; 70450; 70496; 70498; 70544; 70551; 71045; 74018; 80048; 80053; 80061; 80307; 80320; 81001; 82140; 82150; 82550; 82962; 83036; 83735; 84100; 84439; 84443; 84484; 85025; 85610; 85670; 85730; 87040; 87086; 93005; 93010; 93306; 93880; 99406; G0378; A9270-GY; G0480; J0360; J1630; J1650; J2060; J2270; J2997; J3411; J3475; J3480; J7030; J7042; Q9967